=== PATIENT | female | born 1940 | race Caucasian/White ===

== ENCOUNTER 2017-07-26 09:00 | Inpatient (IN) | payer MEDICARE ==
--- NOTE | 2017-07-19 11:20 | HP ---
AMENDED REPORT NOW INCLUDES COSIGNER DESIGNATION - ESIGNED BEFORE ADJUSTMENT HISTORY AND PHYSICAL: DATE OF ADMISSION/SURGERY: 07/26/17 DATE OF OFFICE VISIT: 07/13/17 SURGEON: Sury Wyman MD * (DICTATED BY SUDHA OLMEDO) PROCEDURE: Left total knee arthroplasty. CHIEF COMPLAINT: Left knee pain. HISTORY OF PRESENT ILLNESS: Ms. Stephen Cisneros is a 76-year-old female with complaints of left knee pain secondary to end-stage osteoarthritis. She has failed conservative management and elected to proceed with a left total knee arthroplasty, which is scheduled for 07/26/[address] Wyman. PAST MEDICAL HISTORY: Hypertension, high cholesterol, hypothyroidism, asthma, depression, anxiety, and history of breast cancer. PAST SURGICAL HISTORY: Appendectomy, mastectomy, hematoma removal, tonsillectomy, cataract removal, and a lymph node removal. CURRENT MEDICATIONS: 1. Carvedilol 12.5 mg twice a day. 2. Furosemide 20 mg daily. 3. Losartan potassium 25 mg daily. 4. Aspirin 81 mg daily. 5. Wellbutrin 300 mg daily. 6. Acidophilus. 7. Levoxyl 100 mcg daily. 8. Calcium, magnesium, zinc 1 pill daily. 9. Multivitamin daily. 10. Vitamin C 500 mg a day. 11. Vitamin D3 1000 units a day. 12. Fish oil daily. 13. Chromium picolinate 800 mcg daily. 14. L-carnitine 400 mg daily. 15. Arimidex 1 mg daily. 16. Breo Ellipta inhaler. 17. Alpha lipoic acid 100 mg once a day. 18. Hair, Skin and Nails 2 tabs daily. 19. Glucosamine. 20. Benadryl as needed. 21. QVAR inhaler 2 puffs twice a day. 22. Advair Diskus twice daily. 23. CBD supplement. ALLERGIES: LATEX and SCALLOPS. FAMILY HISTORY: Heart disease, diabetes, cancer, rheumatoid arthritis, stroke, and emphysema. SOCIAL HISTORY: She is a 76-year-old female. She lives alone. She does not smoke. She takes an oral supplement containing cannabis and she denies use of alcohol. REVIEW OF SYSTEMS: A complete 14-point review of systems was reviewed with the patient. It was positive for asthma, occasional shortness of breath, and hypothyroidism. She denies history of DVT, PE, hepatitis C, HIV, or anesthesia problems. PHYSICAL EXAMINATION GENERAL: She is well developed, well nourished, in no acute distress. VITAL SIGNS: She stands 5 feet 3 inches tall, weighs 190 pounds. Her blood pressure is 132/80 and her heart rate 68. HEENT: Normocephalic, atraumatic. NECK: Supple. No palpable lymph nodes. PULMONARY: The lungs are clear to auscultation bilaterally. CARDIO: Regular rate and rhythm. Strong S1, S2. ABDOMEN: Soft, nontender, nondistended. NEUROLOGICAL: She is alert and oriented x3. Cranial nerves II through XII are intact. MUSCULOSKELETAL: Left lower extremity, the skin is intact. There are no open wounds or abrasions. There is a moderate joint effusion. She has some tenderness over the medial and lateral joint line. Range of motion 0 to 120 degrees with patellofemoral crepitus. There is an 18-degree valgus deformity of the knee with significant MCL laxity. 5/5 lower extremity strength, 2+ dorsalis pedis pulses, and intact sensation. ASSESSMENT AND PLAN: Ms. Stephen Cisneros is a 76-year-old female with chronic left knee pain secondary to severe end-stage osteoarthritis. She has failed conservative management and elected to proceed with a left total knee arthroplasty, which is scheduled for 07/26/[address] Wyman discussed the risks and benefits of the surgery at today's visit and all of her questions were answered. She will follow up with Dr. Wyman 2 weeks after the surgery. SUDHA OLMEDO [id number]/[facility] #: [id number] [place]
[~2017-07-26 09:00] MED LIST: Buffered Lidocaine 0.9% SYRIN* 5 ML/SYR SYRINGE INTRADERM ONE; Dexamethasone IV* 4 MG/ML 1 ML (4 MG) IV SLOW PU ONE; Famotidine TAB* 20 MG PO ONE
--- OUTSIDE RECORDS SUMMARY | 2017-07-26 09:30 | XMS REPORT ---
:1940 External Reference #:[id number] Author Organization [facility] Address [address] [address] Phone [phone] Care Team Providers Name Role Phone Jonathan Henson III, MD Primary Care Physician Unavailable Payers Type Date Identification Payment Subscriber Numbers Provider Health Maintenance Effective: Policy Number: Medicare Carlos Mitchell [facility] ([facility]) 04/02/2012 [id number] [facility] [place] Group Number: [id number] [address] [address] PayID: [id number] VictorVANESSA taylor [id number] Medigap Part B Expires: [facility] 04/01/2011 [id number] [facility] [place] PayID: [id number] [address] [place] [address] Medigap Part B Effective: 10/01/2007 Policy Number: Medicare Debbie Mitchell [id number] [place] Expires: 04/01/2011 PayID: [id number] [address] [place] [address] Problems Date Description Provider Status Onset: 05/16/2011 Benign essential hypertension Jonathan Henson M.D. Active Onset: 05/16/2011 Hypothyroidism Jonathan Henson M.D. Active Onset: 05/16/2011 Pure hypercholesterolemia Jonathan Henson M.D. Active Onset: 05/16/2011 Asthma without status asthmaticus Jonathan Henson M.D. Active Onset: 05/16/2011 Impaired fasting glycaemia Jonathan Henson M.D. Active Onset: 05/16/2011 Depressive disorder Jonathan Henson M.D. Active Onset: 06/02/2011 Acute bronchitis Jonathan Henson M.D. Active Onset: 11/24/2014 Pes anserinus tendinitis and bursitis Cody Dorman M.D. Active Onset: 01/14/2015 Essential hypertension Jonathan Henson M.D. Active Onset: 02/16/2016 Localized, primary osteoarthritis Cody Dorman M.D. Active Onset: 02/16/2016 Disorder of shoulder Cody Dorman M.D. Active Onset: 06/18/2017 Acquired genu valgum Sury Wyman M.D. Active Family History Date Family Member(s) Problem(s) Comments General Heart Disease General Diabetes General Cancer Father due to age 69 [place] () Mother Rheumatoid Arthritis Mother due to age 72 ? 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 Purchased capsule recently and plans to take. Smoking Patient is a former smoker Smoked 1/2 ppd for 20 years Daily Caffeine Consumes on average 1 cup Mug of regular coffee per day Exercise Type/Frequency Exercises rarely joined [employer], but not going regularly. Walks Allergies, Adverse Reactions, Alerts Date Description Reaction Status Severity Comments 03/14/2017 Latex active 03/14/2017 Scallops active 03/14/2017 NKDA inactive Medications Medication Date Status Form Strength Qnty SIG Indications Ordering Provider Bactrim DS 07/16 Active Tablets 800-160mg 6tabs take 1 by Sury mouth Garo, twice a M.D. day for 3 days Carvedilol 03/28 Active Tablets 12.5mg 180ta 1 by I42.9 Dustin Amadou bs mouth Dustin, DO twice a FACC day Furosemide 03/23 Active Tablets 20mg 45tab take one Dustin S. s tablet by Chan, DO mouth FACC every other day Losartan 03/23 Active Tablets 25mg 90tab 1 by Dustin Shrestha Potassium s mouth Chan, DO every day FACC Aspirin 03/[address] 81mg 90tab 1 by Dustin Shrestha s mouth Chan, DO every day FACC Prosthetic Bra 12/04 Active Misc Jonathan Rondon. Dave Henson Bupropion HCL ER 04/24 Active Tablets ER 300mg 90tab Take 1 Jonathan Mckeon (XL) 24HR s Tablet Natividad, Daily Dave Acidophilus 05/11 Active Capsules 1 po qd Jonathan Rondon. Dave Henson Levoxyl 05/11 Active Tablets 100mcg 90tab take 1 . s tablet Natividad, daily M.DAmadou Calcium/Magnesium Active Tablets 1 PO qd Other /Zinc /0000 Physician Practices Multi-Vitamin Active Tablets 100ta 1 PO qd Barken, / bs MD Huber Vit C Active Tablets 500mg. 1 PO qd Unknown /0000 Vitamin D-3 Active Tablets 1000Units 1 po qd Unknown /0000 Fish Oil Active Capsules 1 po qd Unknown /0000 Chromium Active Tablets 800mcg 1 by Unknown Picolinate Ultra /0000 mouth daily L-Carnitine Active Capsules 400mg 1 by Unknown /0000 mouth daily Arimidex Active Tablets 1mg 30tab 1 by Unknown /0000 s mouth every day Breo Ellipta Active Aerosol 200-25mcg one Unknown /0000 /Inh inhalatio n daily ( On hold till finished with Advair per patient) Alpha-Lipoic Acid Active Capsules 100mg 1 by Unknown /0000 mouth once per day Hair Skin And Active Tablets 2 tabs Unknown Nails Formula /0000 per day Glucosamine Active Capsules 400mg+500 once per Unknown /0000 mg day Benadryl Allergy Active Tablets 25mg 1-2 tabs Unknown /0000 twice a day prn Concentrated CBD Active 25mg 2 cap po Unknown /0000 daily ( Has Not Start Yet) CBD Active Oil 30 drops Unknown /0000 daily ( started using 2 weeks ago ) Spiriva Respimat Active Aerosol 2.5mcg/Ac 2 puffs Unknown /0000 t every day Carvedilol 03/14 Hx Tablets 6.25mg 60tab Take 1 by I42.9 Dustin SAmadou /2016 s mouth Chan, DO - twice a FACC /2016 Tessalon Perles 02/15 Hx Capsules 100mg 30cap 1-2 by Jonathan Mckeon /2014 s mouth Natividad, - three M.D. 02/19 times day as needed as needed cough. Advair Diskus 05/25 Hx Aerosol 500-50mcg 1unit 1 puff Jonathan Mckeon /2014 /Dose s twice a Natividad, - day M.D. 02/19 Bupropion HCL ER 07/09 Hx Tablets ER 150mg 180ta 2 by Jonathan Mckeon (XL) /2013 24HR bs mouth Natividad, - every day M.D. 04/24 Proair HFA 12/18 Hx Aerosol 108(90Bas 1unit 2 puffs Jonathan Mckeon e) s po qiraine Henson, - mcg/Act prn M.D. 05/13 Zithromax Z-Elver 06/01 Hx Tablets 250mg 1Pack as per Jonathan Mckeon /2011 michael Henson - s M.D. 11/13 Proair HFA 06/01 Hx Aerosol 108(90Bas 1unit 2 puffs Jonathan Mckeon e) mcg/ac s po qid Natividad, - prn M.D. 12/18 Tessalkenneth Blanco 06/01 Hx Capsules 100mg 30cap 1-2 po Jonathan Mckeon /2011 s tid prn Natividad, - M.D. 11/13 Ambien 11/08 Hx Tablets 10mg 30tab 1 po qhs Jonathan Mckeon /2009 s prn sleep Natividad, - insomnia M.D. 12/18 Bupropion HCL 05/05 Hx Tablets ER 150mg 180ta 2 by Jonathan Mckeon /2009 12HR bs yakov Henson, - every day M.D. 07/09 Citalopram 07/06 Hx Tablets 40mg 90tab 1 po qd Jonathan Mckeon Hydrobromide /2008 benson Henson Glen Acosta 05/11 Albuterol Inhaler 07/06 Hx 1unit 2 puffs Jonathan Mckeon s up to Glen Bui M.D. 02/08 Citalopram 08/14 Hx Tablets 20mg 90tab 1 po qd Jonathan Mckeon Hydrobromide /2007 Glen Johnson M.D. 07/06 Levoxyl 06/05 Hx Tablets 100mcg 90tab 1 po qd Unruly /2007 Glen Jernigan M.D.,FACP 05/11 Hydrochlorothiazi 06/02 Hx Capsules 12.5mg 90cap take 1 Jonathan Mckeon de /2007 Glen Hair M.D. 03/23 Lisinopril/Hydroc 11/28 Hx Tablets 10-12.5 90tab 1 po qd Unknown hlorothiazide /2006 s - 06/02 Lexapro 11/28 Hx Tablets 20mg 90tab 1 PO qd Jonathan Mckeon /2006 Glen Johnson M.D. 08/14 Quercetine Plus 11/28 Hx 500mg. 1 PO qd Jonathan Mckeon /2006 Glen Henson M.D. 05/05 Advair Diskus Hx Misc 500/50 1unit 1 puff Natividad s bid III, Glen Mckeon, 05/25 Co Enzyme Q-10 Hx Capsules 50mg 1 PO qd Other / Physician - Practices 05/11 Diovan HCT Hx Tablets 80/12.5 90tab 1 PO qd Eddie, benson Ngo MD - 11/28 Vitamin E Hx Capsules 400Unit 1 PO qd Other / Physician - Practices 05/11 Alpha-Lipoic Acid Hx 100mg. 1 PO qd Other / Physician - Practices 05/11 Chromium Hx Tablets 200mg. 1 PO qd Other Picolinate / Physician - Practices 05/11 Zyrtec Hx Tablets 10mg 90tab 1 po qd Jonathan EAmadou / s Glen Milan M.D. 07/06 Patanol Hx Solution 0.1% 1unit 1 gtt Jonathan E. /0000 s Both Eyes Natividad, - qd prn M.DAmadou 05/05 Levoxyl 0000 Hx Tablets 125mcg 90tab 1 PO qd Jonathan E. /0000 s Glen Henson M.D. 06/05 Ambien CR Hx Tablets ER 12.5mg 30tab 1 tablet Jonathan E. /0000 s po q hs Natividad - prn M.D. 11/08 Grapeseed Extract Hx 1 PO qd Other /0000 Physician - Practices 05/05 Acetyle L Hx 1 PO qd Other Carnitine / Physician - Practices 05/11 L-Glutamine Hx Capsules 500mg 1 PO qd Other / Physician - Practices 05/11 Trazodone HCL Hx Tablets 50mg 30tab 1 tablet Unknown / s at - bedtime 07/02 as needed /2013 Selenium Hx Tablets 200mcg 1 po qd Unknown / - 05/28 Ambien Hx Tablets 10mg 30tab 1 by G47.00 Ovi / s mouth Chika [employer] - every 05/13 night at /2018 bedtime as needed sleep insomnia Turmeric Hx Capsules 500mg 2 by Unknown /0000 mouth - every day 07/25 Spiriva Hx Capsules 18mcg 1 Unknown Handihaler /0000 inhalatio - n by 04/03 every morning Levocetirizine Hx Tablets 5mg 1 by Unknown Dihydrochloride /0000 mouth - every day 03/06 Triamcinolone Hx Cream 0.1% apply Unknown Acetonide / thin film - twice 05/13 Triple Paste AF Hx Ointment 2% Unknown / - 02/19 Triamcinolone Hx Ointment 0.1% Unknown Acetonide /0000 - 02/19 Zolpidem Tartrate Hx Tablets 5mg Unknown / - 02/19 Travatan Z Hx Solution 0.004% 1 drop Unknown / each eye - once 02/19 Ketoconazole Hx Cream 2% apply Unknown /0000 twice a - day 04/02 Prednisolone 00 Hx Suspension 1% 4 drops [place], Acetate / per day Glen Teixeira MD 05/13 Moxifloxacin HCL Hx Solution 0.5% [place], / Glen Teixeira MD 04/03 Melatonin 00 Hx 12mg 1 tab at Unknown /0000 night - 05/13 Qvar Hx Aerosol 80mcg/Act 2 puff Unknown /0000 twice a - day 07/23 Advair Diskus Hx Aerosol 500-50mcg inhale Unknown /0000 /Dose one dose - by mouth 07/23 daily Medications Administered in Office Medication Date Status Form Strength Qnty SIG Indications Ordering Provider Technetium TC Administered Injection Dustin SAmadou 99M 017 DO Dustin Tetrofosmin, FACC Per Unit Dose Up To 40 Millicuries Influenza Administered Injection Unknown Virus Vaccine 013 Immunizations CPT Code Status Date Vaccine Lot # [id number] Given 05/29/2016 Hepatitis A Vaccine Adult Dosage [id number] Given 05/12/2016 Zoster (Zostavax) 67200 Given 01/21/2016 Fluzone High Dose 64555 Given 01/13/2015 Fluzone High Dose 98975 Given 07/23/2014 Pneumococcal Conjugate Vaccine 13 Valent For [id number] Intramuscular Use 81329 Given 01/22/2014 Flu Vaccine Split Virus Preservative Free For [id number] Indiv 3Yr Older 40636 Given 05/05/2009 Pneumonia Vaccine [id number] 96619 Given 05/05/2009 Influenza Virus 3Yrs & Over [id number] 80586 Given 07/06/2008 Tetanus And Diptheria (Td) For Adult Use [id number] Preservative Free 09184 Given 01/02/2008 Influenza Virus 3Yrs & Over 43807 Given 02/05/2007 Influenza Virus 3Yrs & Over 54326 Given 02/05/2007 Influenza Virus 3Yrs & Over 40781 Given 06/03/2001 Pneumovax (History By Patient) 60485 Given 09/09/1997 Td (History By Patient) Vital Signs Date Vital Result Comment 07/13/2017 Height 63.25 inches 5'3.25" Weight 190.00 lb Heart Rate 68 /min BP Systolic 132 mmHg BP Diastolic 80 mmHg Respiratory Rate 16 /min Body Temperature 98.0 F Pain Level 4 BMI (Body Mass Index) 33.4 kg/m2 06/27/2017 Height 63.25 inches 5'3.25" Weight 194.00 lb without shoes Heart Rate 60 /min BP Systolic Sitting 130 mmHg Rue reg cuff BP Diastolic Sitting 64 mmHg Rue reg cuff BP Systolic Standing 124 mmHg Rue reg cuff BP Diastolic Standing 60 mmHg Rue reg cuff Respiratory Rate 16 /min BMI (Body Mass Index) 34.1 kg/m2 Ejection Fraction 40-45% date 03/23/17 ECHO 06/18/2017 Height 65 inches 5'5" Weight 200.00 lb Heart Rate 79 /min BP Systolic Sitting 128 mmHg LA lg cuff BP Diastolic Sitting 76 mmHg LA lg cuff Pain Level 4 BMI (Body Mass Index) 33.3 kg/m2 05/31/2017 Height 65 inches 5'5" Weight 198.00 lb Heart Rate 72 /min BP Systolic Sitting 112 mmHg BP Diastolic Sitting 62 mmHg Respiratory Rate 14 /min O2 % BldC Oximetry 97 % BMI (Body Mass Index) 32.9 kg/m2 05/14/2017 Height 65 inches 5'5" Weight 193.00 lb Heart Rate 72 /min BP Systolic Sitting 114 mmHg BP Diastolic Sitting 70 mmHg Respiratory Rate 14 /min O2 % BldC Oximetry 95 % BMI (Body Mass Index) 32.1 kg/m2 Neck Circumference in inches 14.5 04/25/2017 Height 65 inches 5'5" Weight 193.00 lb Heart Rate 74 /min BP Systolic Sitting 122 mmHg Rue large cuff BP Diastolic Sitting 82 mmHg Rue large cuff BP Systolic Standing 118 mmHg Rue BP Diastolic Standing 80 mmHg Rue Respiratory Rate 16 /min BMI (Body Mass Index) 32.1 kg/m2 Ejection Fraction 40-45% 03/23/17 03/28/2017 Height 65 inches 5'5" Weight 192.00 lb Heart Rate 72 /min BP Systolic Sitting 118 mmHg Rue large cuff BP Diastolic Sitting 70 mmHg Rue large cuff BP Systolic Standing 110 mmHg BP Diastolic Standing 74 mmHg Respiratory Rate 18 /min BMI (Body Mass Index) 31.9 kg/m2 Ejection Fraction 40-45% 03/23/17 03/14/2017 Height 65 inches 5'5" Weight 191.00 lb Heart Rate 68 /min BP Systolic 118 mmHg Rue large cuff BP Diastolic 78 mmHg Rue large cuff BP Systolic Sitting 126 mmHg Lue large cuff BP Diastolic Sitting 80 mmHg Lue large cuff BP Systolic Standing 126 mmHg Lue BP Diastolic Standing 80 mmHg Lue Respiratory Rate 16 /min BMI (Body Mass Index) 31.8 kg/m2 Ejection Fraction 50-55% 12/23/12 02/20/2017 Height 65 inches 5'5" Weight 190.00 lb Heart Rate 75 /min BP Systolic Sitting 132 mmHg BP Diastolic Sitting 82 mmHg Body Temperature 96.7 F O2 % BldC Oximetry 93 % BMI (Body Mass Index) 31.6 kg/m2 08/14/2016 Height 65 inches 5'5" Weight 187.00 lb Heart Rate 84 /min BP Systolic Sitting 124 mmHg BP Diastolic Sitting 82 mmHg Respiratory Rate 15 /min O2 % BldC Oximetry 98 % BMI (Body Mass Index) 31.1 kg/m2 02/16/2016 Height 65 inches 5'5" Weight 185.00 lb per patient BP Systolic Sitting 138 mmHg BP Diastolic Sitting 88 mmHg Pain Level 5 5/10 left knee, 8-9/10 right shoulder BMI (Body Mass Index) 30.8 kg/m2 02/07/2016 Height 63.5 inches 5'3.50" Weight 192.12 lb Heart Rate 81 /min BP Systolic 130 mmHg BP Diastolic 80 mmHg Body Temperature 96.6 F O2 % BldC Oximetry 85 % BMI (Body Mass Index) 33.5 kg/m2 07/26/2015 Height 63.5 inches 5'3.50" Weight 186.00 lb Heart Rate 70 /min BP Systolic Sitting 135 mmHg BP Diastolic Sitting 78 mmHg Body Temperature 96.0 F BMI (Body Mass Index) 32.4 kg/m2 02/08/2015 Height 65 inches 5'5" Weight 187.00 lb Heart Rate 86 /min BP Systolic 110 mmHg BP Diastolic 75 mmHg Body Temperature 97.4 F O2 % BldC Oximetry 98 % BMI (Body Mass Index) 31.1 kg/m2 01/14/2015 Weight 195.00 lb Heart Rate 95 /min BP Systolic Sitting 141 mmHg BP Diastolic Sitting 83 mmHg Body Temperature 96.3 F 11/24/2014 Height 65 inches 5'5" Weight 188.00 lb Heart Rate 97 /min BP Systolic 129 mmHg BP Diastolic 77 mmHg BMI (Body Mass Index) 31.3 kg/m2 07/23/2014 Weight 199.00 lb Heart Rate 75 /min BP Systolic Sitting 128 mmHg BP Diastolic Sitting 80 mmHg Body Temperature 97.9 F O2 % BldC Oximetry 97 % 06/18/2014 Weight 200.50 lb Heart Rate 78 /min BP Systolic Sitting 132 mmHg BP Diastolic Sitting 76 mmHg Body Temperature 97.8 F 05/28/2014 Height 64 inches 5'4" Weight 197.00 lb Heart Rate 73 /min BP Systolic 139 mmHg BP Diastolic 76 mmHg BMI (Body Mass Index) 33.8 kg/m2 03/12/2014 Weight 192.50 lb Heart Rate 80 /min BP Systolic Sitting 144 mmHg BP Diastolic Sitting 77 mmHg Body Temperature 96.5 F O2 % BldC Oximetry 96 % 01/01/2014 Height 64 inches 5'4" Weight 187.00 lb Heart Rate 82 /min BP Systolic Sitting 129 mmHg BP Diastolic Sitting 81 mmHg Body Temperature 96.7 F O2 % BldC Oximetry 95 % BMI (Body Mass Index) 32.1 kg/m2 07/02/2013 Height 64 inches 5'4" Weight 172.75 lb Heart Rate 92 /min BP Systolic Sitting 126 mmHg BP Diastolic Sitting 68 mmHg Body Temperature 97.7 F BMI (Body Mass Index) 29.6 kg/m2 04/22/2013 Weight 172.00 lb Heart Rate 88 /min BP Systolic Sitting 136 mmHg BP Diastolic Sitting 80 mmHg O2 % BldC Oximetry 95 % 12/18/2012 Weight 196.25 lb Heart Rate 78 /min BP Systolic Sitting 128 mmHg BP Diastolic Sitting 80 mmHg 05/21/2012 Height 64 inches 5'4" Weight 189.75 lb Heart Rate 100 /min BP Systolic Sitting 136 mmHg BP Diastolic Sitting 80 mmHg BMI (Body Mass Index) 32.6 kg/m2 11/14/2011 Height 64.25 inches 5'4.25" Weight 188.00 lb Heart Rate 92 /min BP Systolic Sitting 136 mmHg BP Diastolic Sitting 74 mmHg BMI (Body Mass Index) 32.0 kg/m2 06/02/2011 Height 63.75 inches 5'3.75" Weight 194.00 lb Heart Rate 76 /min BP Systolic Sitting 130 mmHg BP Diastolic Sitting 88 mmHg Body Temperature 98.5 F O2 % BldC Oximetry 96 % BMI (Body Mass Index) 33.6 kg/m2 05/16/2011 Height 64 inches 5'4" Weight 202.75 lb Heart Rate 88 /min BP Systolic Sitting 142 mmHg BP Diastolic Sitting 78 mmHg BMI (Body Mass Index) 34.8 kg/m2 05/11/2010 Weight 200.00 lb Heart Rate 80 /min BP Systolic Sitting 136 mmHg BP Diastolic Sitting 82 mmHg O2 % BldC Oximetry 94 % 11/08/2009 Weight 207.00 lb Heart Rate 60 /min BP Systolic Sitting 130 mmHg BP Diastolic Sitting 70 mmHg 05/05/2009 Height 64 inches 5'4" Weight 198.00 lb Heart Rate 88 /min BP Systolic Sitting 138 mmHg BP Diastolic Sitting 84 mmHg BMI (Body Mass Index) 34.0 kg/m2 07/06/2008 Height 64 inches 5'4" Weight 204.00 lb Heart Rate 68 /min BP Systolic Sitting 138 mmHg BP Diastolic Sitting 84 mmHg BMI (Body Mass Index) 35.0 kg/m2 07/24/2007 Height 64.25 inches 5'4.25" Heart Rate 76 /min BP Systolic Sitting 132 mmHg BP Diastolic Sitting 78 mmHg 07/08/2007 Height 64.25 inches 5'4.25" Heart Rate 76 /min BP Systolic Sitting 114 mmHg BP Diastolic Sitting 70 mmHg 06/03/2007 Height 64.25 inches 5'4.25" Weight 200.00 lb Heart Rate 84 /min BP Systolic Sitting 126 mmHg BP Diastolic Sitting 72 mmHg BMI (Body Mass Index) 34.1 kg/m2 11/28/2006 Height 64.25 inches 5'4.25" Weight 191.00 lb Heart Rate 76 /min BP Systolic Sitting 130 mmHg BP Diastolic Sitting 84 mmHg BMI (Body Mass Index) 32.5 kg/m2 Results Test Date Test Result H/L Range Note Urine Culture And 07/13/2017 Urine Culture SEE RESULT BELOW 1 Sensitivities Type & Screen 07/13/2017 Patient Blood A Positive Type Antibody Screen NEGATIVE Inr/Protime 07/13/2017 Inr 0.84 0.77-1.02 Laboratory test finding 07/13/2017 Partial Thrombo Time 28.4 seconds 26.0 -36.3 PTT Comp Metabolic Panel 07/13/2017 Sodium 139 mmol/L 139-145 Potassium 4.4 mmol/L 3.5-5.0 Chloride 104 mmol/L 101-111 Co2 Carbon Dioxide 28 mmol/L 22-32 Anion Gap 7 mmol/L 2-11 Glucose 79 mg/dL 70-100 Blood Urea Nitrogen 21 mg/dL 6-24 Creatinine 0.85 mg/dL 0.51-0.95 BUN/Creatinine Ratio 24.7 High 8-20 Calcium 9.3 mg/dL 8.6-10.3 Total Protein 6.8 g/dL 6.4-8.9 Albumin 4.3 g/dL 3.2-5.2 Globulin 2.5 g/dL 2-4 Albumin/Globulin Ratio 1.7 1-3 Total Bilirubin 0.60 mg/dL 0.2-1.0 Alkaline Phosphatase 70 U/L 34-104 Alt 20 U/L 7-52 Ast 21 U/L 13-39 Egfr Non- 65.0 >60 Egfr 83.6 >60 2 CBC Auto Diff 07/13/2017 White Blood Count 7.9 10^3/uL 3.5-10.8 Red Blood Count 4.37 10^6/uL 4.0-5.4 Hemoglobin 13.2 g/dL 12.0-16.0 Hematocrit 39 % 35-47 Mean Corpuscular Volume 89 fL 80-97 Mean Corpuscular Hemoglobin 30 pg 27-31 Mean Corpuscular HGB Conc 34 g/dL 31-36 Red Cell Distribution Width 14 % 10.5-15 Platelet Count 232 10^3/uL 150-450 Mean Platelet Volume 9.2 um3 7.4-10.4 Abs Neutrophils 4.2 10^3/uL 1.5-7.7 Abs Lymphocytes 2.7 10^3/uL 1.0-4.8 Abs Monocytes 0.8 10^3/uL 0-0.8 Abs Eosinophils 0.2 10^3/uL 0-0.6 Abs Basophils 0.1 10^3/uL 0-0.2 Abs Nucleated RBC 0 10^3/uL Granulocyte % 53.5 % 38-83 Lymphocyte % 33.8 % 25-47 Monocyte % 9.7 % High 0-7 Eosinophil % 2.2 % 0-6 Basophil % 0.8 % 0-2 Nucleated Red Blood Cells % 0 Urinalysis Profile 07/13/2017 Urine Appearance Cloudy Urine Specific [place] 1.017 1.010-1.030 Urine pH 5.0 5-9 Urine Urobilinogen Negative Negative Urine Ketones Negative Negative Urine Protein Negative Negative Urine Leukocytes Negative Negative Urine Blood Negative Negative * * Negative 3 Urine Nitrite Negative Negative Urine Bilirubin Negative Negative Urine Glucose Negative Negative Urine Color Yellow Basic Metabolic Panel 04/04/2017 Sodium 140 mmol/L 133-145 Potassium 4.8 mmol/L 3.5-5.0 Chloride 104 mmol/L 101-111 Co2 Carbon Dioxide 30 mmol/L 22-32 Anion Gap 6 mmol/L 2-11 Glucose 99 mg/dL 70-100 Blood Urea Nitrogen 17 mg/dL 6-24 Creatinine 1.04 mg/dL High 0.51-0.95 BUN/Creatinine Ratio 16.3 8-20 Calcium 9.2 mg/dL 8.6-10.3 Egfr Non- 51.5 >60 Egfr 66.3 >60 4 Laboratory test finding 04/04/2017 Hemoglobin A1c (Glyco 5.9 % High 4.0- 5.6 5 HGB) Basic Metabolic Panel 03/19/2017 Sodium 138 mmol/L 133-145 Potassium 4.1 mmol/L 3.5-5.0 Chloride 105 mmol/L 101-111 Co2 Carbon Dioxide 26 mmol/L 22-32 Anion Gap 7 mmol/L 2-11 Glucose 117 mg/dL High 70-100 Blood Urea Nitrogen 22 mg/dL 6-24 Creatinine 1.00 mg/dL High 0.51-0.95 BUN/Creatinine Ratio 22.0 High 8-20 Calcium 9.1 mg/dL 8.6-10.3 Egfr Non- 53.9 >60 Egfr 69.3 >60 6 Laboratory test finding 03/16/2017 B-Type Natriuretic Peptide 365 pg/mL High 7 BNP Lipid Profile 08/11/2016 Triglycerides 156 mg/dL 8 (Trig/Chol/HDL) Cholesterol 172 mg/dL 9 HDL Cholesterol 54.0 mg/dL 10 LDL Cholesterol 87 mg/dL 11 Laboratory test finding 08/11/2016 TSH (Thyroid Stim Horm) 0.90 mcIU/mL 0.34-5.60 Comp Metabolic Panel 05/04/2016 Sodium 138 mmol/L 133-145 Potassium 3.9 mmol/L 3.5-5.0 Chloride 103 mmol/L 101-111 Co2 Carbon Dioxide 28 mmol/L 22-32 Anion Gap 7 mmol/L 2-11 Glucose 76 mg/dL 70-100 Blood Urea Nitrogen 19 mg/dL 6-24 Creatinine 0.87 mg/dL 0.51-0.95 BUN/Creatinine Ratio 21.8 High 8-20 Calcium 9.6 mg/dL 8.6-10.3 Total Protein 6.7 g/dL 6.4-8.9 Albumin 4.1 g/dL 3.2-5.2 Globulin 2.6 g/dL 2-4 Albumin/Globulin Ratio 1.6 1-3 Total Bilirubin 0.50 mg/dL 0.2-1.0 Alkaline Phosphatase 76 U/L 34-104 Alt 18 U/L 7-52 Ast 19 U/L 13-39 Egfr Non- 63.5 >60 Egfr 81.6 >60 12 CBC Auto Diff 05/04/2016 White Blood Count 7.3 10^3/uL 3.5-10.8 Red Blood Count 4.57 10^6/uL 4.0-5.4 Hemoglobin 13.4 g/dL 12.0-16.0 Hematocrit 40 % 35-47 Mean Corpuscular Volume 88 fL 80-97 Mean Corpuscular Hemoglobin 29 pg 27-31 Mean Corpuscular HGB Conc 33 g/dL 31-36 Red Cell Distribution Width 14 % 10.5-15 Platelet Count 222 10^3/uL 150-450 Mean Platelet Volume 9 um3 7.4-10.4 Abs Neutrophils 4.0 10^3/uL 1.5-7.7 Abs Lymphocytes 2.2 10^3/uL 1.0-4.8 Abs Monocytes 0.8 10^3/uL 0-0.8 Abs Eosinophils 0.3 10^3/uL 0-0.6 Abs Basophils 0.1 10^3/uL 0-0.2 Abs Nucleated RBC 0 10^3/uL Granulocyte % 54.3 % 38-83 Lymphocyte % 29.9 % 25-47 Monocyte % 11.0 % High 1-9 Eosinophil % 4.0 % 0-6 Basophil % 0.8 % 0-2 Nucleated Red Blood Cells % 0 Laboratory test finding 05/04/2016 CA 27-29 19.75 U/mL 3.5-38.6 13 Basic Metabolic Panel 02/03/2016 Sodium 138 mmol/L 133-145 Potassium 4.0 mmol/L 3.5-5.0 Chloride 103 mmol/L 101-111 Co2 Carbon Dioxide 28 mmol/L 22-32 Anion Gap 7 mmol/L 2-11 Glucose 96 mg/dL 70-100 Blood Urea Nitrogen 16 mg/dL 6-24 Calcium 9.6 mg/dL 8.6-10.3 Creatinine 0.93 mg/dL 0.51-0.95 BUN/Creatinine Ratio 17.2 8-20 Egfr Non- 58.8 >60 Egfr 75.6 >60 14 Laboratory test finding 07/22/2015 TSH (Thyroid Stim Horm) 1.01 ?IU/mL 0.34-5.60 Lipid Profile 07/22/2015 Triglycerides 193 mg/dL 15 (Trig/Chol/HDL) Cholesterol 166 mg/dL 16 HDL Cholesterol 53.8 mg/dL 17 LDL Cholesterol 74 mg/dL 18 Basic Metabolic Panel 01/14/2015 Sodium 138 mmol/L 133-145 Potassium 4.1 mmol/L 3.5-5.0 Chloride 104 mmol/L 101-111 Co2 Carbon Dioxide 27 mmol/L 22-32 Anion Gap 7 mmol/L 2-11 Glucose 77 mg/dL 70-100 Blood Urea Nitrogen 14 mg/dL 6-24 Creatinine 0.95 mg/dL 0.51-0.95 BUN/Creatinine Ratio 14.7 8-20 Calcium 9.4 mg/dL 8.6-10.3 Egfr Non- 57.5 >60 Egfr 74.0 >60 19 Lipid Profile (Trig/Chol/HDL) 07/01/2014 Triglycerides 157 mg/dL 20 Cholesterol 161 mg/dL 21 HDL Cholesterol 52.7 mg/dL 22 LDL Cholesterol 77 mg/dL 23 Laboratory test finding 07/01/2014 TSH (Thyroid Stimulating 2.16 IU/mL 0.34-5.60 Horm) Comp Metabolic Panel 12/29/2013 Sodium 137 mmol/L 133-145 Potassium 4.1 mmol/L 3.7-5.6 Chloride 102 mmol/L 101-111 Co2 Carbon Dioxide 29 mmol/L 22-32 Anion Gap 6 mmol/L 2-11 Glucose 106 mg/dL High 70-100 Blood Urea Nitrogen 18 mg/dL 6-24 Creatinine 0.91 mg/dL 0.51-0.95 BUN/Creatinine Ratio 19.8 8-20 Calcium 9.4 mg/dL 8.6-10.3 Total Protein 6.4 g/dL 6.4-8.9 Albumin 4.1 g/dL 3.2-5.2 Globulin 2.3 g/dL 2-4 Albumin/Globulin Ratio 1.8 1-3 Total Bilirubin 0.60 mg/dL 0.2-1.0 Alkaline Phosphatase 86 U/L 34-104 Alt 20 U/L 7-52 Ast 21 U/L 13-39 Egfr Non- 60.6 >60 Egfr 77.9 >60 24 Laboratory test finding 12/29/2013 TSH (Thyroid Stimulating 0.18 IU/mL Low 0.34-5.60 Horm) Free T4 1.17 ng/mL High 0.61-1.12 Hemoglobin A1c 5.6 % Less than 6.0 25 CBC No Diff 12/29/2013 White Blood Count 6.1 10^3/uL 4.8-10.8 Red Blood Count 4.46 10^6/uL 4.0-5.4 Hemoglobin 13.3 g/dL 12.0-16.0 Hematocrit 39 % 35-47 Mean Corpuscular Volume 88 fL 80-97 Mean Corpuscular Hemoglobin 30 pg 27-31 Mean Corpuscular HGB Conc 34 g/dL 31-36 Red Cell Distribution Width 14 % 10.5-15 Platelet Count 242 10^3/uL 150-450 Mean Platelet Volume 8 um3 7.4-10.4 Laboratory test finding 12/29/2013 CA 27-29 21.02 U/mL 3.5-38.6 26 Lipid Profile (Trig/Chol/HDL) 06/26/2013 Triglycerides 147 mg/dL 27, 28 Cholesterol 164 mg/dL 27, 29 HDL Cholesterol 45.8 mg/dL 27, 30 LDL Cholesterol 89 mg/dL 27, 31 CBC Auto Diff 02/24/2013 White Blood Count 20.2 10^3/uL High 4.8-10.8 Red Blood Count 3.50 10^6/uL Low 4.0-5.4 Hemoglobin 10.7 g/dL Low 12.0-16.0 Hematocrit 32 % Low 35-47 Mean Corpuscular Volume 93 fL 80-97 Mean Corpuscular Hemoglobin 31 pg 27-31 Mean Corpuscular HGB Conc 33 g/dL 31-36 Red Cell Distribution Width 19 % High 10.5-15 Platelet Count 223 10^3/uL 150-450 Mean Platelet Volume 9 um3 7.4-10.4 Abs Neutrophils 16.8 10^3/uL High 1.5-7.7 Abs Lymphocytes 2.2 10^3/uL 1.0-4.8 Abs Monocytes 0.9 10^3/uL High 0-0.8 Abs Eosinophils 0.3 10^3/uL 0-0.6 Abs Basophils 0.1 10^3/uL 0-0.2 Abs Nucleated RBC 0.02 10^3/uL Manual Differential 02/24/2013 Neutrophil % 62 % 38-83 Band % 14 % High 0-8 Lymphocytes % 14 % Low 25-47 Monocytes % 7 % 0-13 Reactive Lymph % 2 % 0-6 Metamyelocytes % 1 % 0-2 Toxic Granulation 1+ Polychromasia 1+ Laboratory test finding 02/24/2013 Pathologist Review (SEE NOTE) 32 CBC Auto Diff 02/12/2013 White Blood Count 11.0 10^3/uL High 4.8-10.8 Red Blood Count 3.55 10^6/uL Low 4.0-5.4 Hemoglobin 10.0 g/dL Low 12.0-16.0 Hematocrit 33 % Low 35-47 Mean Corpuscular Volume 92 fL 80-97 Mean Corpuscular Hemoglobin 28 pg 27-31 Mean Corpuscular HGB Conc 31 g/dL 31-36 Red Cell Distribution Width 19 % High 10.5-15 Platelet Count 264 10^3/uL 150-450 Mean Platelet Volume 8 um3 7.4-10.4 Abs Neutrophils 8.1 10^3/uL High 1.5-7.7 Abs Lymphocytes 1.4 10^3/uL 1.0-4.8 Abs Monocytes 0.9 10^3/uL High 0-0.8 Abs Eosinophils 0.5 10^3/uL 0-0.6 Abs Basophils 0.2 10^3/uL 0-0.2 Abs Nucleated RBC 0.01 10^3/uL Granulocyte % 73.1 % 38-83 Lymphocyte % 13.0 % Low 25-47 Monocyte % 8.0 % 1-9 Eosinophil % 4.2 % 0-6 Basophil % 1.7 % 0-2 Nucleated Red Blood Cells % 0.1 Laboratory test finding 02/12/2013 Cell Morphology 1+ 33 CBC Auto Diff 01/29/2013 White Blood Count 16.4 10^3/uL High 4.8-10.8 Red Blood Count 3.55 10^6/uL Low 4.0-5.4 Hemoglobin 10.5 g/dL Low 12.0-16.0 Hematocrit 32 % Low 35-47 Mean Corpuscular Volume 90 fL 80-97 Mean Corpuscular Hemoglobin 30 pg 27-31 Mean Corpuscular HGB Conc 33 g/dL 31-36 Red Cell Distribution Width 19 % High 10.5-15 Platelet Count 367 10^3/uL 150-450 Mean Platelet Volume 9 um3 7.4-10.4 Abs Neutrophils 12.8 10^3/uL High 1.5-7.7 Abs Lymphocytes 1.2 10^3/uL 1.0-4.8 Abs Monocytes 1.8 10^3/uL High 0-0.8 Abs Eosinophils 0.4 10^3/uL 0-0.6 Abs Basophils 0.3 10^3/uL High 0-0.2 Abs Nucleated RBC 0.05 10^3/uL Granulocyte % 78.1 % 38-83 Lymphocyte % 7.3 % Low 25-47 Monocyte % 10.7 % High 1-9 Eosinophil % 2.3 % 0-6 Basophil % 1.6 % 0-2 Nucleated Red Blood Cells % 0.3 Cell Morphology 01/29/2013 Macrocytosis 1+ Polychromasia 1+ Manual Differential 01/01/2013 Neutrophil % 54 % 38-83 Band % 24 % High 0-8 Lymphocytes % 13 % Low 25-47 Monocytes % 7 % 0-13 Basophil % 1 % 0-2 Metamyelocytes % 1 % 0-2 Polychromasia 1+ CBC Auto Diff 01/01/2013 White Blood Count 13.4 10^3/uL High 4.8-10.8 Red Blood Count 3.69 10^6/uL Low 4.0-5.4 Hemoglobin 10.9 g/dL Low 12.0-16.0 Hematocrit 33 % Low 35-47 Mean Corpuscular Volume 89 fL 80-97 Mean Corpuscular Hemoglobin 30 pg 27-31 Mean Corpuscular HGB Conc 33 g/dL 31-36 Red Cell Distribution Width 16 % High 10.5-15 Platelet Count 239 10^3/uL 150-450 Mean Platelet Volume 8 um3 7.4-10.4 Abs Neutrophils 10.4 10^3/uL High 1.5-7.7 Abs Lymphocytes 1.4 10^3/uL 1.0-4.8 Abs Monocytes 1.4 10^3/uL High 0-0.8 Abs Eosinophils 0.1 10^3/uL 0-0.6 Abs Basophils 0 10^3/uL 0-0.2 Abs Nucleated RBC 0.01 10^3/uL CBC Auto Diff 12/18/2012 White Blood Count 14.7 10^3/uL High 4.8-10.8 Red Blood Count 3.93 10^6/uL Low 4.0-5.4 Hemoglobin 12.0 g/dL 12.0-16.0 Hematocrit 35 % 35-47 Mean Corpuscular Volume 89 fL 80-97 Mean Corpuscular Hemoglobin 31 pg 27-31 Mean Corpuscular HGB Conc 34 g/dL 31-36 Red Cell Distribution Width 15 % 10.5-15 Platelet Count 201 10^3/uL 150-450 Mean Platelet Volume 9 um3 7.4-10.4 Abs Neutrophils 11.7 10^3/uL High 1.5-7.7 Abs Lymphocytes 1.8 10^3/uL 1.0-4.8 Abs Monocytes 0.9 10^3/uL High 0-0.8 Abs Eosinophils 0.2 10^3/uL 0-0.6 Abs Basophils 0.1 10^3/uL 0-0.2 Abs Nucleated RBC 0.01 10^3/uL Manual Differential 12/18/2012 Neutrophil % 60 % 38-83 Band % 14 % High 0-8 Lymphocytes % 21 % Low 25-47 Monocytes % 2 % 0-13 Basophil % 3 % High 0-2 Polychromasia 1+ CBC Auto Diff 12/04/2012 White Blood Count 10.5 10^3/uL 4.8-10.8 Red Blood Count 4.12 10^6/uL 4.0-5.4 Hemoglobin 12.6 g/dL 12.0-16.0 Hematocrit 36 % 35-47 Mean Corpuscular Volume 88 fL 80-97 Mean Corpuscular Hemoglobin 31 pg 27-31 Mean Corpuscular HGB Conc 35 g/dL 31-36 Red Cell Distribution Width 14 % 10.5-15 Platelet Count 296 10^3/uL 150-450 Mean Platelet Volume 9 um3 7.4-10.4 Abs Neutrophils 7.8 10^3/uL High 1.5-7.7 Abs Lymphocytes 1.8 10^3/uL 1.0-4.8 Abs Monocytes 0.7 10^3/uL 0-0.8 Abs Eosinophils 0.1 10^3/uL 0-0.6 Abs Basophils 0.1 10^3/uL 0-0.2 Abs Nucleated RBC 0.01 10^3/uL Granulocyte % 73.9 % 38-83 Lymphocyte % 17.4 % Low 25-47 Monocyte % 6.8 % 1-9 Eosinophil % 0.9 % 0-6 Basophil % 1.0 % 0-2 Nucleated Red Blood Cells % 0.1 Oncology CBC Manual Diff 11/28/2012 White Blood Count 6.9 10^3/uL 4.8- 10.8 Red Blood Count 4.33 10^6/uL 4.0-5.4 Hemoglobin 13.1 g/dL 12.0-16.0 Hematocrit 38 % 35-47 Mean Corpuscular Volume 88 fL 80-97 Mean Corpuscular Hemoglobin 30 pg 27-31 Mean Corpuscular HGB Conc 35 g/dL 31-36 Red Cell Distribution Width 13 % 10.5-15 Platelet Count 151 10^3/uL 150-450 Mean Platelet Volume 9 um3 7.4-10.4 Neutrophil % 61 % 38-83 Lymphocytes % 28 % 25-47 Monocytes % 2 % 0-13 Eosinophils % 2 % 0-6 Basophil % 1 % 0-2 Reactive Lymph % 3 % 0-6 Metamyelocytes % 2 % 0-2 Promyelocytes % 1 % Toxic Granulation 2+ Issac Cells 1+ Laboratory test finding 11/28/2012 Pathologist Review (SEE NOTE) 34 Oncology CBC Auto Diff 11/19/2012 White Blood Count 9.0 10^3/uL 4.8-10.8 Red Blood Count 4.27 10^6/uL 4.0-5.4 Hemoglobin 12.3 g/dL 12.0-16.0 Hematocrit 38 % 35-47 Mean Corpuscular Volume 88 fL 80-97 Mean Corpuscular Hemoglobin 29 pg 27-31 Mean Corpuscular HGB Conc 33 g/dL 31-36 Red Cell Distribution Width 13 % 10.5-15 Platelet Count 238 10^3/uL 150-450 Mean Platelet Volume 8 um3 7.4-10.4 Abs Neutrophils 7.4 10^3/uL 1.5-7.7 Abs Lymphocytes 1.3 10^3/uL 1.0-4.8 Abs Monocytes 0.2 10^3/uL 0-0.8 Abs Eosinophils 0.1 10^3/uL 0-0.6 Abs Basophils 0 10^3/uL 0-0.2 Manual Differential 11/19/2012 Neutrophil % 83 % 38-83 Lymphocytes % 16 % Low 25-47 Eosinophils % 1 % 0-6 RBC Morphology Normal Normal Comp Metabolic Panel 11/19/2012 Sodium 138 mmol/L 133-145 Potassium 4.1 mmol/L 3.5-5.0 Chloride 102 mmol/L 101-111 Co2 Carbon Dioxide 28.0 mmol/L 22-32 Anion Gap 8.0 mmol/L 2-11 Glucose 89 mg/dL 70-100 Blood Urea Nitrogen 18 mg/dL 6-24 Creatinine 0.90 mg/dL 0.50-1.40 BUN/Creatinine Ratio 20.0 8-20 Calcium 9.6 mg/dL 8.1-9.9 Total Protein 6.8 g/dL 6.2-8.1 Albumin 3.9 g/dL 3.2-5.2 Globulin 2.9 g/dL 2-4 Albumin/Globulin Ratio 1.3 1-3 Total Bilirubin 0.7 mg/dL 0.4-1.5 Alkaline Phosphatase 82 U/L 30-110 Alt 29 U/L 14-54 Ast 30 U/L 12-42 Egfr Non- 61.5 >60 Egfr 79.2 >60 35 CBC Auto Diff 10/11/2012 White Blood Count 7.8 10^3/uL 4.8-10.8 Red Blood Count 4.63 10^6/uL 4.0-5.4 Hemoglobin 13.8 g/dL 12.0-16.0 Hematocrit 41 % 35-47 Mean Corpuscular Volume 88 fL 80-97 Mean Corpuscular Hemoglobin 30 pg 27-31 Mean Corpuscular HGB Conc 34 g/dL 31-36 Red Cell Distribution Width 14 % 10.5-15 Platelet Count 253 10^3/uL 150-450 Mean Platelet Volume 9 um3 7.4-10.4 Abs Neutrophils 4.6 10^3/uL 1.5-7.7 Abs Lymphocytes 2.4 10^3/uL 1.0-4.8 Abs Monocytes 0.5 10^3/uL 0-0.8 Abs Eosinophils 0.2 10^3/uL 0-0.6 Abs Basophils 0.1 10^3/uL 0-0.2 Abs Nucleated RBC 0 10^3/uL Granulocyte % 58.5 % 38-83 Lymphocyte % 30.9 % 25-47 Monocyte % 6.8 % 1-9 Eosinophil % 2.8 % 0-6 Basophil % 1.0 % 0-2 Nucleated Red Blood Cells % 0 Basic Metabolic Panel 10/11/2012 Sodium 138 mmol/L 133-145 Potassium 4.0 mmol/L 3.5-5.0 Chloride 98 mmol/L Low 101-111 Co2 Carbon Dioxide 32.0 mmol/L 22-32 Anion Gap 8.0 mmol/L 2-11 Glucose 100 mg/dL 70-100 Blood Urea Nitrogen 11 mg/dL 6-24 Creatinine 0.90 mg/dL 0.50-1.40 BUN/Creatinine Ratio 12.2 8-20 Calcium 9.9 mg/dL 8.1-9.9 Egfr Non- 61.7 >60 Egfr 79.4 >60 36 Laboratory test 10/11/2012 TSH (Thyroid 2.16 miu/mL 0.34-5.60 finding Stimulating Horm) Cytology Non-Pattern Room Attendant 09/16/2012 Ira RUN DATE: <SEE NOTE> Laboratory test 09/16/2012 Inr 0.76 Low 0.87-0.97 finding Activated Partial Thrombo Time 28.0 seconds 22.18-37.18 Creatinine 09/05/2012 Creatinine 0.90 mg/dL 0.50-1.40 Egfr Non- 61.7 >60 Egfr 79.4 >60 38 Surgical Pathology 08/21/2012 S RUN DATE: <SEE NOTE> Lipid Profile 05/17/2012 Triglycerides 103 mg/dL 40-200 (Trig/Chol/HDL) Cholesterol 162 mg/dL Less than 200 HDL Cholesterol 50 mg/dL 40-60 40 Cholesterol/HDL Ratio 3.2 Average 1-4.44 LDL Cholesterol 91.4 mg/dL Less Than 100 41 Comp Metabolic Panel 05/17/2012 Sodium 139 mmol/L 133-145 Potassium 3.8 mmol/L 3.5-5.0 Chloride 106 mmol/L 101-111 Co2 Carbon Dioxide 25.0 mmol/L 22-32 Anion Gap 8.0 mmol/L 2-11 Glucose 102 mg/dL High 70-100 Blood Urea Nitrogen 13 mg/dL 6-24 Creatinine 0.90 mg/dL 0.50-1.40 BUN/Creatinine Ratio 14.4 8-20 Calcium 9.5 mg/dL 8.1-9.9 Total Protein 6.0 g/dL Low 6.2-8.1 Albumin 4.1 g/dL 3.2-5.2 Globulin 1.9 g/dL Low 2-4 Albumin/Globulin Ratio 2.2 1-3 Total Bilirubin 0.6 mg/dL 0.4-1.5 Alkaline Phosphatase 89 U/L 30-110 Alt 32 U/L 14-54 Ast 31 U/L 12-42 Egfr Non- 61.7 >60 Egfr 79.4 >60 42 Laboratory test 05/17/2012 TSH (Thyroid 3.18 miu/mL 0.34-5.60 finding Stimulating Horm) Laboratory test 05/09/2011 CPK (Creatine Kinase) 386 U/L High 0-170 finding TSH 1.51 MIU/ML 0.34-5.60 Thyroxine Free 0.90 ng/dL 0.61-1.24 Hemoglobin A1c 5.8 % Less Than 6.0 43 Comp Metabolic Panel 05/09/2011 Sodium 141 mmol/L 135-145 Potassium 4.3 mmol/L 3.5-5.0 Chloride 104 mmol/L 101-111 Co2 (Carbon Dioxide) 28.0 mmol/L 22-32 Anion Gap 9.0 mmol/L 2-11 44 Glucose 112 mg/dL High 70-100 BUN 14 mg/dL 6-24 Creatinine 1.2 mg/dL 0.50-1.40 One Over Creatinine 0.83 BUN/Creatinine Ratio 11.7 8-20 Calcium 9.3 mg/dL 8.1-9.9 Total Protein 6.8 GM/DL 6.2-8.1 Albumin 4.1 GM/DL 3.2-5.2 Globulin 2.7 GM/DL 2-4 Albumin/Globulin Ratio 1.5 1-3 Bilirubin Total 0.7 mg/dL 0.4-1.5 45 Alkaline Phosphatase 80 U/L 30-110 Alt (SGPT) 35 U/L 14-54 Ast (Sgot) 37 U/L 12-42 eGFR Non- 44.4 > 60 eGFR 57.1 > 60 46 Lipid Profile (Trig/Chol/HDL) 05/09/2011 Triglyceride 153 mg/dL 40-200 Cholesterol 203 mg/dL High Less Than 200 47 High Density Lipoprotein 50 mg/dL 40-60 48 Cholesterol/HDL Ratio 4.06 AVERAGE 1-4.44 Low Density Lipoprotein 122 mg/dL High Less Than [address] Henson's Lab Panel 05/11/2010 TSH 2.16 MIU/ML 0.34-5.60 Comp Metabolic Panel 05/11/2010 Sodium 139 mmol/L 135-145 Potassium 4.5 mmol/L 3.5-5.0 Chloride 104 mmol/L 101-111 Co2 (Carbon Dioxide) 26.0 mmol/L 22-32 Anion Gap 9.0 mmol/L 2-11 50 Glucose 106 mg/dL High 70-100 BUN 10 mg/dL 6-24 Creatinine 1.00 mg/dL 0.50-1.40 One Over Creatinine 1.00 BUN/Creatinine Ratio 10.0 8-20 Calcium 9.4 mg/dL 8.1-9.9 Total Protein 6.9 GM/DL 6.2-8.1 Albumin 4.3 GM/DL 3.2-5.2 Globulin 2.6 GM/DL 2-4 Albumin/Globulin Ratio 1.7 1-3 Bilirubin Total 0.9 mg/dL 0.4-1.5 51 Alkaline Phosphatase 81 U/L 30-110 Alt (SGPT) 37 U/L 14-54 Ast (Sgot) 42 U/L 12-42 eGFR Non- 55.0 > 60 eGFR 70.7 > 60 52 Lipid Profile (Trig/Chol/HDL) 05/11/2010 Triglyceride 222 mg/dL High 40- 200 Cholesterol 189 mg/dL Less Than 200 53 High Density Lipoprotein 49 mg/dL 40-60 54 Cholesterol/HDL Ratio 3.86 AVERAGE 1-4.44 Low Density Lipoprotein 96 mg/dL Less Than 100 55 CBC With Electronic Diff 05/11/2010 White Blood Count 7.4 CUMM 4.8-10.8 Red Cell Count 4.68 CUMM 4.2-5.4 Hemoglobin 13.9 g/dL 12.0-16.0 Hematocrit 42 % 35-47 Mean Corpuscular Volume 89 um3 79-97 Mean Corpuscular Hemoglob 30 pg 27-31 Mean Corpuscular HGB Cone 33 g/dL 32-36 Redcell Distribution WDTH 14 % 10.5-15 Platelet Count 260 CUMM 150-450 Mean Platelet Volume 9.7 um3 7.4-10.4 Gran % 58.1 % 38-83 Lymph % 32.6 % 25-47 Mononuclear % 8.6 % 1-9 Eosinophil % 0 % 0-6 Basophil % 0.7 % 0-2 Abs Lymphs 2.4 1.0-4.8 Abs Mononuclear 0.6 0-0.8 Absolute Neutrophil Count 4.3 1.5-7.7 Abs Eosinophils 0 0-0.6 Abs Basophils 0.1 0-0.2 Iron & Iron Binding Capacity 05/11/2010 Iron Total 90 g/dL 28-170 Unsaturated Iron Binding 319 g/dL Total Iron Binding Capacity 409 g/dL 250-450 % Iron Saturation 22 % 15-55 Laboratory test finding 05/11/2010 Hemoglobin A1c 5.9 % Less Than 6.[address] Henson's Lab Panel 05/06/2009 TSH 2.48 MIU/ML 0.34-5.60 Comp Metabolic Panel 05/06/2009 Sodium 141 mmol/L 135-145 Potassium 4.2 mmol/L 3.5-5.0 Chloride 107 mmol/L 101-111 Co2 (Carbon Dioxide) 28.0 mmol/L 22-32 Anion Gap 6.0 mmol/L 2-11 57 Glucose 102 mg/dL High 70-100 58 BUN 16 mg/dL 6-24 Creatinine 1.00 mg/dL 0.50-1.40 One Over Creatinine 1.00 BUN/Creatinine Ratio 16.0 8-20 Calcium 9.6 mg/dL 8.1-9.9 59 Total Protein 6.4 GM/DL 6.2-8.1 Albumin 3.9 GM/DL 3.2-5.2 Globulin 2.5 GM/DL 2-4 Albumin/Globulin Ratio 1.6 1-3 Bilirubin Total 0.7 mg/dL 0.4-1.5 60 Alkaline Phosphatase 73 U/L 30-110 Alt (SGPT) 26 U/L 14-54 Ast (Sgot) 29 U/L 12-42 eGFR Non- 58.6 > 60 eGFR 70.9 > 60 61 Lipid Profile (Trig/Chol/HDL) 05/06/2009 Triglyceride 143 mg/dL 40-200 Cholesterol 211 mg/dL High Less Than 200 62 High Density Lipoprotein 42 mg/dL 40-60 63 Cholesterol/HDL Ratio 5.02 AVERAGE High 1-4.44 Low Density Lipoprotein 140 mg/dL High Less Than 100 64 CBC With Electronic Diff 05/06/2009 White Blood Count 7.4 CUMM 4.8-10.8 Red Cell Count 4.43 CUMM 4.2-5.4 Hemoglobin 13.2 g/dL 12.0-16.0 Hematocrit 39 % 35-47 Mean Corpuscular Volume 88 um3 79-97 Mean Corpuscular Hemoglob 30 pg 27-31 Mean Corpuscular HGB Cone 34 g/dL 32-36 Redcell Distribution WDTH 14 % 10.5-15 Platelet Count 292 CUMM 150-450 Mean Platelet Volume 8.7 um3 7.4-10.4 Gran % 57.4 % 38-83 Lymph % 32.3 % 25-47 Mononuclear % 9.4 % High 1-9 Eosinophil % 0 % 0-6 Basophil % 0.9 % 0-2 Abs Lymphs 2.4 1.0-4.8 Abs Mononuclear 0.7 0-0.8 Absolute Neutrophil Count 4.2 1.5-7.7 Abs Eosinophils 0 0-0.6 Abs Basophils 0.1 0-0.2 Thyroxine Free 05/06/2009 Free Thyroxine 0.77 NG/ML 0.61-1.24 65 Laboratory test 07/18/2008 D Dimer Quantitative < 200 < 230 66, 67 finding NG/ML CBC With Manual 07/18/2008 White Blood Count 13.1 CUMM High 4.8-10.8 66 Diff Stat Red Cell Count 4.71 CUMM 4.2-5.4 66 Hemoglobin 14.1 g/dL 12.0-16.0 66 Hematocrit 41 % 35-47 66 Mean Corpuscular Volume 87 um3 79-97 66 Mean Corpuscular Hemoglob 30 pg 27-31 66 Mean Corpuscular HGB Cone 35 g/dL 32-36 66 Redcell Distribution WDTH 14 % 10.5-15 66 Platelet Count 290 CUMM 150-450 66 Mean Platelet Volume 8.9 um3 7.4-10.4 66 Polysegmented Neutrophil 66 % 38-83 66 Band Neutrophil 1 % 0-8 66 Lymphocyte 26 % 25-47 66 Monocyte 4 % 0-13 66 Atypical Lymph 3 % 0-6 66 Absolute Neutrophil Count 8.7 66 RBC Morphology NORMAL 66 Comp Metabolic Panel 07/18/2008 Sodium 138 mmol/L 135-145 66 Potassium 3.6 mmol/L 3.5-5.0 66 Chloride 101 mmol/L 101-111 66 Co2 (Carbon Dioxide) 25.0 mmol/L 22-32 66 Anion Gap 12.0 mmol/L High 2-11 66, 68 Glucose 64 mg/dL Low 70-100 66, 69 BUN 8 mg/dL 6-24 66 Creatinine 0.70 mg/dL 0.50-1.40 66 One Over Creatinine 1.40 66 BUN/Creatinine Ratio 11.4 8-20 66 Calcium 8.8 mg/dL 8.1-9.9 66, 70 Total Protein 7.7 GM/DL 6.2-8.1 66 Albumin 4.5 GM/DL 3.2-5.2 66 Globulin 3.2 GM/DL 2-4 66 Albumin/Globulin Ratio 1.4 1-3 66 Bilirubin Total 0.7 mg/dL 0.4-1.5 66 Alkaline Phosphatase 92 U/L 30-110 66 Alt (SGPT) 44 U/L 14-54 66 Ast (Sgot) 46 U/L High 12-42 66 Laboratory test finding 07/18/2008 Troponin-I (TnI) 0.02 NG/ML 0-0.06 66 , 71 Thyroid Panel 07/18/2008 Free Thyroxine 0.88 NG/ML 0.61-1.24 66, 72 Thyroxine 7.4 g/dL 5-12 66 TSH 1.39 MIU/ML 0.34-5.60 66 Laboratory test finding 07/18/2008 BNP Evaluatr 89.0 pg/mL 0-100 66 CBC With Manual Diff 07/06/2008 White Blood Count 7.9 CUMM 4.8-10.8 Red Cell Count 4.58 CUMM 4.2-5.4 Hemoglobin 13.6 g/dL 12.0-16.0 Hematocrit 40 % 35-47 Mean Corpuscular Volume 86 um3 79-97 Mean Corpuscular Hemoglob 30 pg 27-31 Mean Corpuscular HGB Cone 35 g/dL 32-36 Redcell Distribution WDTH 14 % 10.5-15 Platelet Count 252 CUMM 150-450 Mean Platelet Volume 9.1 um3 7.4-10.4 Polysegmented Neutrophil 64 % 38-83 Lymphocyte 28 % 25-47 Monocyte 6 % 0-13 Eosenophil 1 % 0-6 Basophil 1 % 0-2 Absolute Neutrophil Count 5.0 Anisocytosis SLIGHT Comp Metabolic Panel 07/06/2008 Sodium 138 mmol/L 135-145 Potassium 4.6 mmol/L 3.5-5.0 Chloride 100 mmol/L Low 101-111 Co2 (Carbon Dioxide) 29.0 mmol/L 22-32 Anion Gap 9.0 mmol/L 2-11 73 Glucose 88 mg/dL 70-100 74 BUN 12 mg/dL 6-24 Creatinine 0.80 mg/dL 0.50-1.40 One Over Creatinine 1.20 BUN/Creatinine Ratio 15.0 8-20 Calcium 9.3 mg/dL 8.1-9.9 75 Total Protein 6.7 GM/DL 6.2-8.1 Albumin 4.0 GM/DL 3.2-5.2 Globulin 2.7 GM/DL 2-4 Albumin/Globulin Ratio 1.5 1-3 Bilirubin Total 1.0 mg/dL 0.4-1.5 Alkaline Phosphatase 88 U/L 30-110 Alt (SGPT) 44 U/L 14-54 Ast (Sgot) 42 U/L 12-42 Lipid Profile (Trig/Chol/HDL) 07/06/2008 Triglyceride 251 mg/dL High 40- 200 Cholesterol 201 mg/dL High Less Than 200 76 High Density Lipoprotein 43 mg/dL 40-60 77 Cholesterol/HDL Ratio 4.67 AVERAGE High 1-4.44 Low Density Lipoprotein 108 mg/dL High Less Than 100 78 Laboratory test finding 07/06/2008 TSH 2.43 MIU/ML 0.34-5.60 Laboratory test finding 07/24/2007 Free Thyroxine 0.73 NG/ML 0.61-1.24 79, 80 TSH 1.10 MIU/ML 0.34-5.60 79 Lipid Profile 06/19/2007 Cholesterol/HDL Ratio 4.23 AVERAGE 1-4.44 79 (Trig/Chol/HDL) Cholesterol 203 mg/dL High Less Than 200 79, 81 Triglyceride 217 mg/dL High 40-200 79 High Density Lipoprotein 48 mg/dL 40-60 79 Low Density Lipoprotein 112 mg/dL High Less Than 100 79, 82 CBC With Electronic Diff 06/03/2007 White Blood Count 9.3 CUMM 4.8-10.8 Abs Basophils 0.1 0-0.2 Abs Eosinophils 0 0-0.6 Absolute Neutrophil Count 5.6 1.5-7.7 Abs Lymphs 2.9 1.0-4.8 Abs Mononuclear 0.7 0-0.8 Basophil % 0.8 % 0-2 Hematocrit 41 % 35-47 Hemoglobin 13.9 g/dL 12.0-16.0 Eosinophil % 0 % 0-6 Gran % 60.5 % 38-83 Lymph % 31.3 % 20-45 Mean Corpuscular HGB Cone 34 g/dL 32-36 Mean Corpuscular Hemoglob 29 pg 27-31 Mean Corpuscular Volume 86 um3 79-97 Mean Platelet Volume 9.4 um3 7.4-10.4 Mononuclear % 7.4 % 1-9 Platelet Count 302 CUMM 150-450 Red Cell Count 4.75 CUMM 4.2-5.4 Redcell Distribution WDTH 14 % 10.5-15 Comp Metabolic Panel 06/03/2007 One Over Creatinine 1.11 Anion Gap 6.0 mmol/L 2-11 83 Albumin/Globulin Ratio 1.6 1-3 Albumin 4.2 GM/DL 3.2-5.2 Alkaline Phosphatase 77 U/L 30-110 Alt (SGPT) 27 U/L 14-54 Ast (Sgot) 29 U/L 12-42 BUN 12 mg/dL 6-24 Calcium 9.5 mg/dL 8.7-10.2 Chloride 103 mmol/L 101-111 Co2 (Carbon Dioxide) 31.0 mmol/L 22-32 Globulin 2.6 GM/DL 2-4 Glucose 90 mg/dL 70-105 Potassium 4.8 mmol/L 3.5-5.0 Sodium 140 mmol/L 135-145 Bilirubin Total 0.4 mg/dL 0.4-1.5 Total Protein 6.8 GM/DL 6.2-8.1 BUN/Creatinine Ratio 13.3 8-20 Creatinine 0.9 mg/dL 0.5-1.4 Laboratory test finding 06/03/2007 TSH 0.31 MIU/ML Low 0.34-5.60 1 SEE RESULT BELOW Name: DEBBIE TREJO : [address]: Sury Wyman MD Acct: [id number] Unit: [id number] AGE: 76 Location: [facility] Re07/13/17 SEX: F Status: REG REF SPEC: [id number] STU: 07/13/17-1340 [facility] DR: Sury Wyman MD REQ: [id number] RECD: 07/13/17 STATUS: ALLISON TOMAS DR: Jonathan Henson III, MD _ SOURCE: URINE SPDESC: ORDERED: Urine Culture QUERIES: Urine Source: Clean Catch Procedure Result Reported Site Urine Culture Final 07/14/17- 1312 ML Organism 1 STREP GROUP B Velva Count 1-10,000 (Few) CFU/ML Susceptibility testing of penicillins and other B-lactams approved by FDA for treatment of Streptococcus pyogenes (Group A Strep) and Streptococcus agalactiae (Group B Strep) is not necessary for clinical purposes and need not be done routinely, since as with vancomycin, resistant strains have not been recognized. (CLSI T601-R02;p.66) Positive isolates will be saved for one week. Please call the Microbiology Laboratory if further susceptibility testing is needed. * [facility] - Main Lab . END OF REPORT DEPARTMENT OF PATHOLOGY, [address] [place] [address] Ruddy Espinal M.D. Director [facility] # [id number] 2 Because ethnic data is not always readily available, this report includes an eGFR for both -Americans and non- Americans. The National Kidney Disease Education Program (NKDEP) does not endorse the use of the MDRD equation for patients that are not between the ages of 18 and 70, are , have extremes of body size, muscle mass, or nutritional status, or are non- or non-. According to the National Kidney Foundation, irrespective of diagnosis, the stage of the disease is based on the level of kidney function: Stage Description GFR(mL/min/1.73 m(2)) 1 Kidney damage with normal or decreased GFR 90 2 Kidney damage with mild decrease in GFR 60-89 3 Moderate decrease in GFR 30-59 4 Severe decrease in GFR 15-29 5 Kidney failure <15 (or dialysis) 3 *Ascorbic acid is present which may interfere with detection of blood. 4 Because ethnic data is not always readily available, this report includes an eGFR for both -Americans and non- Americans. The National Kidney Disease Education Program (NKDEP) does not endorse the use of the MDRD equation for patients that are not between the ages of 18 and 70, are , have extremes of body size, muscle mass, or nutritional status, or are non- or non-. According to the National Kidney Foundation, irrespective of diagnosis, the stage of the disease is based on the level of kidney function: Stage Description GFR(mL/min/1.73 m(2)) 1 Kidney damage with normal or decreased GFR 90 2 Kidney damage with mild decrease in GFR 60-89 3 Moderate decrease in GFR 30-59 4 Severe decrease in GFR 15-29 5 Kidney failure <15 (or dialysis) 5 Therapeutic target for the treatment of diabetes mellitus patients is <7% HBA1C, and in selective patients <6.0%. Please refer to [place] [employer] diabetic care guidelines for further information. 6 Because ethnic data is not always readily available, this report includes an eGFR for both -Americans and non- Americans. The National Kidney Disease Education Program (NKDEP) does not endorse the use of the MDRD equation for patients that are not between the ages of 18 and 70, are , have extremes of body size, muscle mass, or nutritional status, or are non- or non-. According to the National Kid[employer] Foundation, irrespective of diagnosis, the stage of the disease is based on the level of kidney function: Stage Description GFR(mL/min/1.73 m(2)) 1 Kidney damage with normal or decreased GFR 90 2 Kidney damage with mild decrease in GFR 60-89 3 Moderate decrease in GFR 30-59 4 Severe decrease in GFR 15-29 5 Kidney failure <15 (or dialysis) 7 >100 to <200 pg/mL: likely compensated congestive heart failure (CHF) 200 to 400 pg/mL: likely moderate CHF >400 pg/mL: likely moderate to severe CHF 8 Desirable <150 Borderline high 150-199 High 200-499 Very High >500 9 Desirable <200 Borderline high 200-239 High >239 10 Low <40 Desirable: 40-60 High: >60 11 Desirable: <100 mg/dL Near Optimal: 100-129 mg/dL Borderline High: 130-159 mg/dL High: 160-189 mg/dL Very High: >189 mg/dL 12 Because ethnic data is not always readily available, this report includes an eGFR for both -Americans and non- Americans. The National Kidney Disease Education Program (NKDEP) does not endorse the use of the MDRD equation for patients that are not between the ages of 18 and 70, are , have extremes of body size, muscle mass, or nutritional status, or are non- or non-. According to the National Kid[employer] Foundation, irrespective of diagnosis, the stage of the disease is based on the level of kidney function: Stage Description GFR(mL/min/1.73 m(2)) 1 Kidney damage with normal or decreased GFR 90 2 Kidney damage with mild decrease in GFR 60-89 3 Moderate decrease in GFR 30-59 4 Severe decrease in GFR 15-29 5 Kidney failure <15 (or dialysis) 13 Assay by Chemiluminescence microparticle immunoassay on the [employer]. Values obtained with different methods or kits cannot be used interchangeably for patient monitoring. Results cannot be interpreted as absolute evidence of the presence or absence of malignancy. The test is not interpretable in . 14 Because ethnic data is not always readily available, this report includes an eGFR for both -Americans and non- Americans. The National Kidney Disease Education Program (NKDEP) does not endorse the use of the MDRD equation for patients that are not between the ages of 18 and 70, are , have extremes of body size, muscle mass, or nutritional status, or are non- or non-. According to the National Kidney Foundation, irrespective of diagnosis, the stage of the disease is based on the level of kidney function: Stage Description GFR(mL/min/1.73 m(2)) 1 Kidney damage with normal or decreased GFR 90 2 Kidney damage with mild decrease in GFR 60-89 3 Moderate decrease in GFR 30-59 4 Severe decrease in GFR 15-29 5 Kidney failure <15 (or dialysis) 15 Desirable <150 Borderline high 150-199 High 200-499 Very High >500 16 Desirable <200 Borderline high 200-239 High >239 17 Low <40 Desirable: 40-60 High: >60 18 Desirable: <100 mg/dL Near Optimal: 100-129 mg/dL Borderline High: 130-159 mg/dL High: 160-189 mg/dL Very High: >189 mg/dL 19 Because ethnic data is not always readily available, this report includes an eGFR for both -Americans and non- Americans. The National Kidney Disease Education Program (NKDEP) does not endorse the use of the MDRD equation for patients that are not between the ages of 18 and 70, are , have extremes of body size, muscle mass, or nutritional status, or are non- or non-. According to the National Kidney Foundation, irrespective of diagnosis, the stage of the disease is based on the level of kidney function: Stage Description GFR(mL/min/1.73 m(2)) 1 Kidney damage with normal or decreased GFR 90 2 Kidney damage with mild decrease in GFR 60-89 3 Moderate decrease in GFR 30-59 4 Severe decrease in GFR 15-29 5 Kidney failure <15 (or dialysis) 20 Desirable <150 Borderline high 150-199 High 200-499 Very High >500 21 Desirable <200 Borderline high 200-239 High >239 22 Low <40 Desirable: 40-60 High: >60 23 Desirable: <100 mg/dL Near Optimal: 100-129 mg/dL Borderline High: 130-159 mg/dL High: 160-189 mg/dL Very High: >189 mg/dL 24 Because ethnic data is not always readily available, this report includes an eGFR for both -Americans and non- Americans. The National Kidney Disease Education Program (NKDEP) does not endorse the use of the MDRD equation for patients that are not between the ages of 18 and 70, are , have extremes of body size, muscle mass, or nutritional status, or are non- or non-. According to the National Kidney Foundation, irrespective of diagnosis, the stage of the disease is based on the level of kidney function: Stage Description GFR(mL/min/1.73 m(2)) 1 Kidney damage with normal or decreased GFR 90 2 Kidney damage with mild decrease in GFR 60-89 3 Moderate decrease in GFR 30-59 4 Severe decrease in GFR 15-29 5 Kidney failure <15 (or dialysis) 25 Therapeutic target for the treatment of diabetes Mellitus patients is <7% HBA1C, and in selective patients <6.0%.Please refer to [place] [employer] Diabetic care guidelines for further information. 26 Assay by Chemiluminescence microparticle immunoassay on the Roxanne Advia Centaur. Values obtained with different methods or kits cannot be used interchangeably for patient monitoring. Results cannot be interpreted as absolute evidence of the presence or absence of malignancy. The test is not interpretable in . 27 FASTING 10 HOUR 28 Desirable <150 Borderline high 150-199 High 200-499 Very High >500 29 Desirable <200 Borderline high 200-239 High >239 30 Low <40 Desirable: 40-60 High: >60 31 Desirable <100 Near Optimal 100-129 Borderline high 130-159 High 160-189 Very High >189 32 CBC and smear reviewed. Leukocytosis and left shift noted. Findings most consistent with acute illness or infection. Normochromic normocytic anemia consistent with chronic disease or acute blood loss. REVIEWED BY RUDDY ESPINAL MD 33 @02/12/13 1301: Cell Morphology added. RFLXG=RBC MORPH. 34 REVIEWED BY RUDDY ESPINAL MD CBC and smear reviewed. Findings consistent with probable treatment effects. 35 Because ethnic data is not always readily available, this report includes an eGFR for both -Americans and non- Americans. The National Kidney Disease Education Program (NKDEP) does not endorse the use of the MDRD equation for patients that are not between the ages of 18 and 70, are , have extremes of body size, muscle mass, or nutritional status, or are non- or non-. According to the National Kidney Foundation, irrespective of diagnosis, the stage of the disease is based on the level of kidney function: Stage Description GFR(mL/min/1.73 m(2)) 1 Kidney damage with normal or decreased GFR 90 2 Kidney damage with mild decrease in GFR 60-89 3 Moderate decrease in GFR 30-59 4 Severe decrease in GFR 15-29 5 Kidney failure <15 (or dialysis) 36 Because ethnic data is not always readily available, this report includes an eGFR for both -Americans and non- Americans. The National Kidney Disease Education Program (NKDEP) does not endorse the use of the MDRD equation for patients that are not between the ages of 18 and 70, are , have extremes of body size, muscle mass, or nutritional status, or are non- or non-. According to the National Kidney Foundation, irrespective of diagnosis, the stage of the disease is based on the level of kidney function: Stage Description GFR(mL/min/1.73 m(2)) 1 Kidney damage with normal or decreased GFR 90 2 Kidney damage with mild decrease in GFR 60-89 3 Moderate decrease in GFR 30-59 4 Severe decrease in GFR 15-29 5 Kidney failure <15 (or dialysis) 37 RUN DATE: 09/17/12 [facility] LAB LIVE PAGE 1 RUN TIME: [address] [place] [address] Specimen Inquiry Name: SHOBHA FUENTESDONNADEBBIE : [address]: Kristal Tan MD Acct: [id number] Unit: [id number] AGE: 71 Location: [facility] Re09/16/12 SEX: F Status: REG REF SPEC: [id number] STU: 09/16/12-[address]: Kristal Tan MD REQ: [id number] RECD: 09/17/12114 STATUS: ROXY TOMAS DR: Jonathan Henson III, MD _ ORDERED: FN ASP SUPERFIC FINAL DIAGNOSIS Right breast, fine needle aspirate: Benign- benign mammary epithelial elements in adipose tissue. No evidence of neoplasia is identified. COMMENTS: The aspirate smears are moderately cellular and demonstrate several cohesive property management bookkeeper benign appearing mammary epithelial groups with associated myoepithelial cells. Bare bipolar nuclei are seen in the background as are numerous aggregates of benign adipose tissue. Correlation with clinical and imaging findings is suggested. BREAST RIGHT CLINICAL HISTORY Lesion right breast. GROSS DESCRIPTION 2 Alcohol fixed slide(s) received from clinician and Needle rinse in CytoLyt solution for thin layer non-lasting machine operator bed test. Signed (signature on file) Ruddy Espinal MD 1088 END OF REPORT * ML=Testing performed at Main Lab DEPARTMENT OF PATHOLOGY, [address] [place] [address] Ruddy Espinal M.D. Director [facility] Permit #[id number] 38 Because ethnic data is not always readily available, this report includes an eGFR for both -Americans and non- Americans. The National Kidney Disease Education Program (NKDEP) does not endorse the use of the MDRD equation for patients that are not between the ages of 18 and 70, are , have extremes of body size, muscle mass, or nutritional status, or are non- or non-. According to the National Kidney Foundation, irrespective of diagnosis, the stage of the disease is based on the level of kidney function: Stage Description GFR(mL/min/1.73 m(2)) 1 Kidney damage with normal or decreased GFR 90 2 Kidney damage with mild decrease in GFR 60-89 3 Moderate decrease in GFR 30-59 4 Severe decrease in GFR 15-29 5 Kidney failure <15 (or dialysis) 39 RUN DATE: 08/27/12 [facility] LAB LIVE PAGE 1 RUN TIME: [address] [place], [place] [address] Specimen Inquiry Name: DEBBIE TREJO : [address]: Jonathan Henson III, MD Acct: [id number] Unit: [id number] AGE: 71 Location: [facility] [place] [facility] Re08/21/12 SEX: F Status: REG REF SPEC: [id number] STU: 08/21/12- SUBM DR: Tyson Gr MD REQ: [id number] RECD: 08/21/121545 STATUS: ROXY TOMAS DR: Jonathan Henson III, MD _ ORDERED: HMWK STAIN, ESTRO REC ST, PROGEST REC ST, E-CADHERIN STAI, LEVEL IV , HER 2 FRANCESCO US LB The following immunohistochemical stains were performed with appropriate controls: E-Cadherin Weak and variably positive. High Molecular Weight Keratin Strongly and diffusely positive. These immunohistochemical stains are most compatible with lobular differentiation. A subset of lobular carcinomas are known to demonstrate weak to moderate variable E- cadherin staining positivity, however in conjunction with the very strong High Molecular Weight Keratin these findings are best interpreted as lobular carcinoma. Immunohistochemical stains were performed with appropriate controls as follows: ER Positive, 3+, greater than 90% of tumor cells. TX Positive, 2-3+, 40% of tumor nuclei. The following immunohistochemical stains were performed at [facility] ([place], [place]) with appropriate controls and interpreted by [facility]: [id number] (Herceptest) Negative (0+). Addendum Signed (signature on file) Ruddy Espianl MD 1334 FINAL DIAGNOSIS Breast, left, core biopsies: A. 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 1. Size: 13.0 mm. maximal single measured span. 2. Tumor extent and distribution: Tumor involves all examined cores and occupies approximately 80% of total core volume. 3. Estimated [place] Grade: a. Estimated Tubule formation: 3. b. Estimated Nuclear Grade: 1. CONTINUED ON NEXT PAGE * ML=Testing performed at Main Lab DEPARTMENT OF PATHOLOGY, [facility] [place], [place] [address] Ruddy Espinal M.D. Director [facility] Permit #[id number] RUN DATE: 08/27/12 [facility] LAB LIVE PAGE 2 RUN TIME: 25[address] [facility] [address] [place], [place] [address] Specimen Inquiry Patient: DEBBIE TREJO [id number] (Continued) FINAL DIAGNOSIS (Continued) c. Estimated Mitotic Count: 1. Combine [place] Histologic Grade: 1/3 (5/9 points). 4. Lymphatic/vascular invasion: Not identified. 5. Perineural invasion: Positive. B. Ductal carcinoma in situ (DCIS): Not identified. C. ER/TX and Her2/Francesco by immunohistochemistry with appropriate controls: 1. ER: Pending. 2. TX: Pending. 3. Her2/Francesco: Pending. D. Microcalcifications: Not identified. E. Other findings: None. F. Predicted TNM Histopathologic Stage: At least [id number]. COMMENTS: The tumor demonstrates a highly infiltrative growth pattern composed almost entirely of thin cores, single cells, and single file arrangements. Rare elements demonstrating abortive glandular structures are apparent. The tumor demonstrates features of lobular carcinoma including targetoid invasion around pre-existing structures and intracytoplasmic mucin vacuoles. Immunohistochemical stains for E-cadherin and High Molecular Weight Keratin are pending to further characterize the differentiation of this malignancy. Immunohistochemical stains for ER, TX, and Her2/Francesco are also pending. PRE-OPERATIVE DIAGNOSIS Shadowing mass left breast. GROSS DESCRIPTION The specimen is received in formalin labeled Debbie Mitchell Vtdonna, Left Breast Core Biopsy, and consists of multiple primarily floating house and yellow fibrofatty cores measuring 1.9 x 0.9 x 0.2 cm. in aggregate. Submitted entirely, one cassette. CONTINUED ON NEXT PAGE * ML=Testing performed at Main Lab DEPARTMENT OF PATHOLOGY, [address] [place] [address] Ruddy Espinal M.D. Director [facility] Permit #[id number] RUN DATE: 08/27/12 [facility] LAB LIVE PAGE 3 RUN TIME: [address] [place] [address] Specimen Inquiry Patient: SHOBHA KIRKDEBBIE [id number] (Continued) GROSS DESCRIPTION (Continued) Signed (signature on file) Ruddy Espinal MD 1451 END OF REPORT * ML=Testing performed at Main Lab DEPARTMENT OF PATHOLOGY, [address] [place] [address] Ruddy Espinal M.D. Director [facility] Permit #[id number] HDL Interpretation: Undesirable: High Risk: Less than 40 MG/DL Desirable: Low Risk: Greater than 60 MG/DL 41 LDL Interpretation: Low Risk Optimal Level: LDL Less than 100 MG/DL Near or Above Optimal: LDL 100-129 MG/DL Borderline High Risk: LDL 130-159 MG/DL High Risk: LDL 160-189 MG/DL Very High Risk: LDL Greater than 189 MG/DL 42 Because ethnic data is not always readily available, this report includes an eGFR for both -Americans and non- Americans. The National Kidney Disease Education Program (NKDEP) does not endorse the use of the MDRD equation for patients that are not between the ages of 18 and 70, are , have extremes of body size, muscle mass, or nutritional status, or are non- or non-. According to the National Kidney Foundation, irrespective of diagnosis, the stage of the disease is based on the level of kidney function: Stage Description GFR(mL/min/1.73 m(2)) 1 Kidney damage with normal or decreased GFR 90 2 Kidney damage with mild decrease in GFR 60-89 3 Moderate decrease in GFR 30-59 4 Severe decrease in GFR 15-29 5 Kidney failure <15 (or dialysis) 43 THERAPEUTIC TARGET FOR THE TREATMENT OF DIABETES MELLITUS PATIENTS IS <7% HBA1C, AND IN SELECTIVE PATIENTS <6.0%. PLEASE REFER TO [place] [employer] DIABETIC CARE GUIDELINES FOR FURTHER INFORMATION. 44 Anion gap measurement may be of limited value in the presence of any alkalosis, especially in a combined acid base disorder. . 45 A metabolite of Naproxen, O-desmethylnaproxen, has been shown to interfere with the Jendrassik-Alexey method for measuring total bilirubin. Samples from patients who have taken Naproxen have shown spurious elevation in total bilirubin levels. 46 Because ethnic data is not always readily available, this report includes an eGFR for both -Americans and non- Americans. The National Kidney Disease Education Program (NKDEP) does not endorse the use of the MDRD equation for patients that are not between the ages of 18 and 70, are , have extremes of body size, muscle mass, or nutritional status, or are non- or non-. According to the National Kidney Foundation, irrespective of diagnosis, the stage of the disease is based on the level of kidney function: Stage Description GFR(mL/min/1.73 m(2)) 1 Kidney damage with normal or decreased GFR 90 2 Kidney damage with mild decrease in GFR 60-89 3 Moderate decrease in GFR 30-59 4 Severe decrease in GFR 15-29 5 Kidney failure <15 (or dialysis) 47 CHOLESTEROL INTERPRETATION: Desirable: Less than 200 MG/DL Borderline-High Risk: 200-239 MG/DL High-Risk: 240 MG/DL and over 48 HDL INTERPRETATION: Undesirable: High Risk: Less than 40 MG/DL Desirable: Low Risk: Greater than 60 MG/DL 49 LDL INTERPRETATION: Low Risk Optimal Level: LDL Less than 100 MG/DL Near or Above Optimal: LDL 100-129 MG/DL Borderline High Risk: LDL 130-159 MG/DL High Risk: LDL 160-189 MG/DL Very High Risk: LDL Greater than 189 MG/DL 50 Anion gap measurement may be of limited value in the presence of any alkalosis, especially in a combined acid base disorder. . 51 A metabolite of Naproxen, O-desmethylnaproxen, has been shown to interfere with the Jendrassik-Alexey method for measuring total bilirubin. Samples from patients who have taken Naproxen have shown spurious elevation in total bilirubin levels. 52 Because ethnic data is not always readily available, this report includes an eGFR for both -Americans and non- Americans. The National Kidney Disease Education Program (NKDEP) does not endorse the use of the MDRD equation for patients that are not between the ages of 18 and 70, are , have extremes of body size, muscle mass, or nutritional status, or are non- or non-. According to the National Kidney Foundation, irrespective of diagnosis, the stage of the disease is based on the level of kidney function: Stage Description GFR(mL/min/1.73 m(2)) 1 Kidney damage with normal or decreased GFR 90 2 Kidney damage with mild decrease in GFR 60-89 3 Moderate decrease in GFR 30-59 4 Severe decrease in GFR 15-29 5 Kidney failure <15 (or dialysis) 53 CHOLESTEROL INTERPRETATION: Desirable: Less than 200 MG/DL Borderline-High Risk: 200-239 MG/DL High-Risk: 240 MG/DL and over 54 HDL INTERPRETATION: Undesirable: High Risk: Less than 40 MG/DL Desirable: Low Risk: Greater than 60 MG/DL 55 LDL INTERPRETATION: Low Risk Optimal Level: LDL Less than 100 MG/DL Near or Above Optimal: LDL 100-129 MG/DL Borderline High Risk: LDL 130-159 MG/DL High Risk: LDL 160-189 MG/DL Very High Risk: LDL Greater than 189 MG/DL 56 THERAPEUTIC TARGET FOR THE TREATMENT OF DIABETES MELLITUS PATIENTS IS <7% HBA1C, AND IN SELECTIVE PATIENTS <6.0%. PLEASE REFER TO [place] [employer] DIABETIC CARE GUIDELINES FOR FURTHER INFORMATION. 57 Anion gap measurement may be of limited value in the presence of any alkalosis, especially in a combined acid base disorder. . 58 Note change in reference range as of 11/21/07. The change was based on recommendations from the [place] [employer]. 59 Please note change in reference range effective 07 . 60 A metabolite of Naproxen, O-desmethylnaproxen, has been shown to interfere with the Jendrassik-Fernley method for measuring total bilirubin. Samples from patients who have taken Naproxen have shown spurious elevation in total bilirubin levels. 61 Because ethnic data is not always readily available, this report includes an eGFR for both -Americans and non- Americans. The National Kidney Disease Education Program (NKDEP) does not endorse the use of the MDRD equation for patients that are not between the ages of 18 and 70, are , have extremes of body size, muscle mass, or nutritional status, or are non- or non-. According to the National Kidney Foundation, irrespective of diagnosis, the stage of the disease is based on the level of kidney function: Stage Description GFR(mL/min/1.73 m(2)) 1 Kidney damage with normal or decreased GFR 90 2 Kidney damage with mild decrease in GFR 60-89 3 Moderate decrease in GFR 30-59 4 Severe decrease in GFR 15-29 5 Kidney failure <15 (or dialysis) 62 CHOLESTEROL INTERPRETATION: Desirable: Less than 200 MG/DL Borderline-High Risk: 200-239 MG/DL High-Risk: 240 MG/DL and over 63 HDL INTERPRETATION: Undesirable: High Risk: Less than 40 MG/DL Desirable: Low Risk: Greater than 60 MG/DL 64 LDL INTERPRETATION: Low Risk Optimal Level: LDL Less than 100 MG/DL Near or Above Optimal: LDL 100-129 MG/DL Borderline High Risk: LDL 130-159 MG/DL High Risk: LDL 160-189 MG/DL Very High Risk: LDL Greater than 189 MG/DL 65 PLEASE NOTE NEW REFERENCE RANGES. 66 COMMENTS? BLOOD IN LAB 67 Please note: The following may produce a false positive D Dimer test: - Rheumatoid factor greater than 60 IU/ml - Plasma hemoglobin greater than 0.05 gm/dl - Bilirubin greater than 50 mg/dl - Lipids greater than 1000 mg/dl - FDP greater than 20 ug/ml . 68 Anion gap measurement may be of limited value in the presence of any alkalosis, especially in a combined acid base disorder. . 69 Note change in reference range as of 11/21/07. The change was based on recommendations from the [place] [employer]. 70 Please note change in reference range effective 07 . 71 New Reference Range and Interpretation effective 01/03/02 TnI (ng/ml) INTERPRETATION <0.06 ng/ml NOT SUPPORTIVE OF DIAGNOSIS OF MA 0.06 - 0.50 ng/ml INDETERMINATE: SUGGEST SERIAL STUDIES IF CLINICALLY INDICATED. > 0.5 ng/ml CONSISTENT WITH DIAGNOSIS OF MA . 72 PLEASE NOTE NEW REFERENCE RANGES. 73 Anion gap measurement may be of limited value in the presence of any alkalosis, especially in a combined acid base disorder. . 74 Note change in reference range as of 11/21/07. The change was based on recommendations from the [place] [employer]. 75 Please note change in reference range effective 07 . 76 CHOLESTEROL INTERPRETATION: Desirable: Less than 200 MG/DL Borderline-High Risk: 200-239 MG/DL High-Risk: 240 MG/DL and over 77 HDL INTERPRETATION: Undesirable: High Risk: Less than 40 MG/DL Desirable: Low Risk: Greater than 60 MG/DL 78 LDL INTERPRETATION: Low Risk Optimal Level: LDL Less than 100 MG/DL Near or Above Optimal: LDL 100-129 MG/DL Borderline High Risk: LDL 130-159 MG/DL High Risk: LDL 160-189 MG/DL Very High Risk: LDL Greater than 189 MG/DL 79 PATIENT MAY HAVE RESULTS PER DOCTOR'S AUTHORIZATION. Questions regarding this report should be directed to your doctor. 80 PLEASE NOTE NEW REFERENCE RANGES. 81 Classification: Borderline High . 82 CALCULATED LDL APPROXIMATES THE VALUE OF A DIRECT LDL MEASUREMENT. Classification: Near or above optimal . 83 Anion gap measurement may be of limited value in the presence of any alkalosis, especially in a combined acid base disorder. . Procedures Date CPT Code Description Status 07/06/2017 67026 Echocardiogram, Limited Study Completed 07/06/2017 96515 Echocardiogram, Limited Study Completed 06/27/2017 15365 EKG Tracing & Interpretation Completed 03/23/2017 17205 ECHO Transthoracic, Real-Time 2D With Doppler And Color Completed Flow 03/23/2017 84413 ECHO Transthoracic, Real-Time 2D With Doppler And Color Completed Flow 03/14/2017 74141 EKG Tracing & Interpretation Completed 02/28/2017 36552 Stress Test Completed 02/28/2017 03279 Myocardial Perfusion Imaging Tomographic (Spect) Completed Multiple Studies 02/20/2017 44429 EKG Tracing & Interpretation Completed 10/19/2016 Mammogram Completed 10/19/2016 Bone Mineral Density Test Completed 10/19/2015 Mammogram Completed 10/19/2015 Bone Mineral Density Test Completed 10/12/2014 Mammogram Completed 09/09/2014 Bone Mineral Density Test Completed 01/27/2014 Colonoscopy Completed 12/23/2012 80378 ECHO Transthorasic Realtime 2D W Doppler & Color Completed Flow Hosp 11/01/2012 51236 ECHO Transthorasic Realtime 2D W Doppler & Color Completed Flow Hosp 10/08/2012 Bone Mineral Density Test Completed 08/23/2012 Mammogram Completed 08/21/2012 Mammogram Completed 08/13/2012 Mammogram Completed 08/08/2011 Mammogram Completed 06/02/2011 45048 Noninvasive Ear Or Pulse Oximetry For Oxygen Saturation Completed 06/09/2010 Mammogram Completed 10/06/2009 Bone Mineral Density Test Completed 10/06/2009 Mammogram Completed 07/06/2008 11886 EKG Tracing & Interpretation Completed 06/24/2007 Colonoscopy Completed 04/04/2004 Colonoscopy Completed Encounters Type Date Location Provider CPT E/M Dx Office Visit 06/27/2017 [facility] [place] [address] I50.42 2:40p [facility] FACC Z01.810 I10 G47.9 C50.919 R73.01 J45.998 F17.201 Office Visit 06/18/2017 1:00p [facility] M.D. 93696 M17.12 C.M.A. M21.062 M25.562 M25.462 Office Visit 05/31/2017 12:00p [facility] [place] [address] R09.02 Services Of [facility] Office Visit 05/14/2017 1:00p [facility] [place] [address] G47.9 Services [facility] R09.02 Office Visit 04/25/2017 1:40p [facility] [place] [address] I42.9 [facility] FACC I10 C50.919 R73.01 Office Visit 03/28/2017 4:00p [facility] [place] [address] I42.9 [facility] FACC R73.01 I10 C50.919 Office Visit 03/14/2017 3:00p [facility] [place] [address] I42.9 [facility] FACC R06.02 I10 J45.909 C50.919 Office Visit 02/20/2017 2:20p [facility] Internal Medicine - Jonathan Henson, [address] I10 Blessing Acosta E03.9 J45.909 R07.9 Office Visit 05/29/2016 2:30p [facility] Internal Medicine - Nurse Visit C 61806 Z23 [place] Office Visit 02/16/2016 11:00a [facility] [place], 51380 M17.12 Laura Acosta M75.41 Office Visit 02/07/2016 11:20a [facility] Internal Medicine - Jonathan Henson, 22942 I10 Blessing Acosta E03.9 Z85.3 Office Visit 02/08/2015 3:00p [facility] Internal Medicine Jonathan Henson, 29455 J20.9 - Lan Acosta Office Visit 01/14/2015 11:40a [facility] Internal Medicine Jonathan Henson, 82916 I10 - Lan Acosta E03.9 J45.909 Office Visit 11/24/2014 2:00p [facility], 09952 726.61 Laura Acosta Office Visit 06/18/2014 2:40p [facility] Internal Medicine Jonathan Henson, 23387 373.31 - Lan Acosta Office Visit 05/28/2014 10:00a [facility] [place] [address] 782.9 - [place] 719.46 Office Visit 03/12/2014 4:00p [facility] Internal Medicine Jonathan Henson, 56740 719.46 - Lan Acosta Office Visit 01/01/2014 11:00a [facility] Internal Medicine Jonathan Henson, 95359 401.1 - Lan Sandoval.DAmadou 244.9 493.90 790.21 311 174.9 Office Visit 04/22/2013 10:00a [facility] Internal Medicine Jonathan Henson, 81589 726.19 - [place] M.Israel Office Visit 12/18/2012 10:20a [facility] Internal Medicine Jonathan Henson, 27101 401.1 - [place] M.DAmadou 244.9 493.90 272.0 790.21 174.9 Office Visit 11/14/2011 10:00a [facility] Internal Medicine Jonathan Henson, 16564 401.1 - Lan Sandoval.Israel 272.0 244.9 493.90 Office Visit 06/02/2011 10:40a [facility] Internal [facility] Jonathan Henson, 33855 466.0 - Lan Acosta Office Visit 05/16/2011 10:00a [facility] Internal Medicine Jonathan Henson, 80561 V70.0 - Lan Sandoval.[place] 401.1 244.9 272.0 493.90 790.21 311 Office Visit 05/11/2010 9:00a DO Not Use Employee Benefits Manager At [facility], 29320 V70.0 [facility] Lori.Israel 401.1 354.0 244.9 493.90 272.0 790.21 311 Office Visit 11/08/2009 9:20a DO Not Use Employee Benefits Manager At [facility] Mike Natividad, 72147 401.1 [facility] Lori.Israel 244.9 493.90 272.0 311 Office Visit 05/05/2009 1:40p DO Not Use Employee Benefits Manager At [facility], 67231 401.1 [facility] Lori.Israel 493.90 272.2 244.9 V04.81 V03.82 Office Visit 07/06/2008 9:00a [facility], 35856 493.90 [facility]5 401.1 Office Visit 07/24/2007 10:00a [facility], 09377 782.3 [facility] 401.1 Office Visit 07/08/2007 1:30p [facility] Jonathan Henson, 93194 719.44 [facility] Office Visit 06/03/2007 10:00a [facility] Jonathan Henson, 72273 244.9 [facility] 493.90 401.1 Office Visit 11/28/2006 9:30a [facility] Jonathan Henson, 87151 477.9 [facility] 493.90 311 Plan of Care Future Appointment(s):01/23/2018 11:40 am - Jonathan Henson M.D. at [facility] Internal Medicine - Yfgffxsjg15/09/2018 11:30 am - Sury Wyman M.D. at [facility]07/26/2017 10:30 am - Nixon Antonio PA-C at [facility]07/26/2017 10:30 am - SUDHA Hart at [facility]07/26/2017 10:30 am - Sury Wyman M.D. at [facility].08/31/2017 11:30 am - Michelle Nix MD at [facility]07/24/2017 - Jonathan Henson M.D.Z01.810 Encounter for preprocedural cardiovascular examinationComments:No contraindications to planned knee hcfhfhaJ86.12 Unilateral primary osteoarthritis, left kneeComments:L TKA planned per kczhlI42 Essential (primary ) hypertensionComments:BPs goodE03.9 Hypothyroidism, unspecifiedComments:On RxJ45.909 Unspecified asthma, uncomplicatedComments:(+) asthma/COPD; stable with Rx and pt follows with pulmonary/allergy. No acute resp problems. (+) abnormal home sleep study with some desaturations, but felt non-diagnostic for sleep apnea. Pt withno sleep problems/sx.I42.9 Cardiomyopathy, unspecifiedComments:Slightly decreased EF; stable with cardiology rechecks. Stress testing (-) for ischemia
--- OUTSIDE RECORDS SUMMARY | 2017-07-26 09:31 | XMS REPORT ---
:1940 External Reference #:[id number] Author Organization [facility] Address [address], [address] [place] [address] Phone [phone] Care Team Providers Name Role Phone Jonathan Henson III, MD Care Team Information Curber Unavailable Jonathan Henson III, MD Primary Care Physician Unavailable Payers Type Date Identification Numbers Payment Provider Subscriber Commercial Policy Number: [id number] [employer] Xenia Cisneros PayID: [id number] [address] [address] [place] [address] Problems Description No Information Family History Date Family Member(s) Problem(s) Comments Father Emphysema Father due to [place] () Mother Angina First Sister Chronic Obstructive Pulmonary Disease (COPD) Social History Type Date Description Comments Marital Status Patient is Home Environment Lives Alone Occupation Retired Work Status Retired Cigarette Use Quit 1989 ETOH Use Denies alcohol use Smoking Patient is a former smoker 1 PPD x20 years Recreational Drug Use Denies Drug Use Daily Caffeine Consumes on average 2 cups of regular coffee per day Exercise Type/Frequency Exercises sporadically Allergies, Adverse Reactions, Alerts Date Description Reaction Status Severity Comments 06/28/2017 NKDA active Medications Medication Date Status Form Strength Qnty SIG Indications Ordering Provider Spiriva Active Aerosol 2.5mcg/Act 4gm take 2 J44.9 Miguel Respimat 018 puffs MD Latonya once daily. Please load and teach inhaler. Bupropion HCL /0 Active Tablets ER 300mg 1 by Unknown ER (XL) 000 24HR mouth every day Anastrozole Active Tablets 1mg 1 by Unknown 000 mouth every day Losartan Active Tablets 25mg 1 by Unknown Potassium 000 mouth every day Levoxyl Active Tablets 100mcg 1 by Unknown 000 mouth every day Furosemide 0 Active Tablets 20mg 1 by Unknown 000 mouth every other day Carvedilol Active Tablets 12.5mg take one Unknown 000 tablet by mouth twice a day Aspirin Active Tablets DR 81mg 1 by Unknown 000 mouth every day Zolpidem Active Tablets 10mg 1 by Unknown Tartrate 000 mouth as needed Breo Ellipta Active Aerosol 100-25mcg/I take 1 Unknown 000 nh puff once daily. rinse mouth with water after use. Advair Diskus Hx Aerosol 500-50mcg/D take 1 Unknown 000 - ose puff twice 018 daily Vital Signs Date Vital Result Comment 07/16/2017 BP Systolic Sitting Left Arm 102 mmHg BP Diastolic Sitting Left Arm 68 mmHg Heart Rate 75 /min Respiratory Rate 18 /min Weight 194.00 lb O2 Saturation Level with Exercise 91 % 06/28/2017 BP Systolic Sitting Left Arm 126 mmHg BP Diastolic Sitting Left Arm 74 mmHg Heart Rate 67 /min Respiratory Rate 18 /min Weight 197.00 lb O2 % BldC Oximetry 99 % room air Results Description No Information Procedures Description No Information Encounters Type Date Location Provider CPT E/M Dx Office Visit 06/28/2017 2:00p [place] [address] R09.02 J45.20 Plan of Care Future Appointment(s):01/15/2018 1:45 pm - Miguel Hanks MD at [facility]04/16/ 2018 - Miguel Hanks MDJ44.9 Chronic obstructive pulmonary disease, unspecifiedNew Medication:Spiriva Respimat 2.5 mcg/ActComments:I reviewed her PFT results with her and 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 Again advised to stop Qvar. Start Spiriva Respimat 2.5 mcg 2 puffs once daily. Continue Breo and as needed albuterol.Follow up:6 qyhlhtY36.02 HypoxemiaComments :Nocturnal hypoxia may be secondary to COPD and AVANI. Home sleep study tonight. Oxygen needs will be based on if she desaturates on CPAP.
--- OUTSIDE RECORDS SUMMARY | 2017-07-26 09:32 | XMS REPORT ---
:1940 External Reference #:[id number] Author Organization [facility] Address [address], [address] [place] [address] Phone [phone] Care Team Providers Name Role Phone Jonathan Henson III, MD Care Team Information Inspector And Mender Unavailable Jonathan Henson III, MD Primary Care Physician Unavailable Payers Type Date Identification Numbers Payment Provider Subscriber Commercial Policy Number: [id number] [employer] Xenia Cisneros PayID: [id number] [address] [address] [place] [address] Problems Description No Information Family History Date Family Member(s) Problem(s) Comments Father Emphysema Father due to [place] () Mother Angina First Sister Chronic Obstructive [...] Form Strength Qnty SIG Indications Ordering Provider Bupropion HCL 0 Active Tablets ER 300mg 1 by Unknown ER (XL) 000 24HR mouth every day Anastrozole 0 Active Tablets 1mg 1 by Unknown 000 mouth every day Losartan 0 Active Tablets 25mg 1 by Unknown Potassium 000 mouth every day Levoxyl 0 Active Tablets 100mcg 1 by Unknown 000 mouth every day Furosemide 0 Active Tablets 20mg 1 by Unknown 000 mouth every day Carvedilol Active Tablets 12.5mg take one [...] daily Vital Signs Date Vital Result Comment 06/28/2017 BP Systolic Sitting Left Arm 126 mmHg BP Diastolic Sitting Left Arm 74 mmHg Heart Rate 67 /min Respiratory Rate 18 /min Weight 197.00 lb O2 % BldC Oximetry 99 % room air Results Description No Information Procedures Description No Information Plan of Care Future Appointment(s):07/16/2017 11:30 am - Miguel Hanks MD at [facility]06/29/ 2018 - Miguel Hanks, MDR09.02 HypoxemiaComments:I discused with her that she needs a sleep study to rule out AVANI. It is unlikely that she has cardiopulmonary disease causing the nocturnal desaturations as her resting O2 today is 99%. I am checking achest x-ray and full PFTs.Follow up:2 weeks.J45.20 Mild intermittent asthma, uncomplicatedNew Orders:PFT With BronchodilatorComments:Stop Qvar. Continue Breo and as needed albuterol. I am requesting records from machine accountant, telephone sex worker, and her electrical power station technician.
--- OUTSIDE RECORDS SUMMARY | 2017-07-26 09:32 | XMS REPORT ---
:1940 External Reference #:[id number] Author Organization [facility] Address [address] [address] Phone [phone] Care Team Providers Name Role Phone Jonathan Henson III, MD Primary Care Physician Unavailable Payers Type Date Identification Payment Subscriber Numbers Provider Health Maintenance Effective: Policy Number: Medicare Carlos Mitchell IceBreaker [place] 04/02/2012 [id number] o [place] Group Number: [id number] [address] [address] PayID: [id number] MarshallVANESSA taylor [id number] Medigap Part B Expires: Policy Number: [facility] De[facility] 04/01/2011 [id number] [facility] [place] PayID: [id number] [address] [place] [address] Medigap Part B Effective: 10/01/2007 Policy Number: Medicare Debbie Mitchell [id number] [place] Expires: 04/01/2011 PayID: [id number] [address] [place] [address] Problems Date Description Provider Status Onset: 05/16/2011 [...] Dorman M.D. Active Onset: 06/18/2017 Acquired genu darrius Wyman M.D. Active Family History Date Family Member(s) Problem(s) Comments General Heart Disease General Diabetes General Cancer Father due to age 69 MS () Mother Rheumatoid Arthritis Mother due to age 72 ? 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 Walks Allergies, Adverse Reactions, Alerts Date Description Reaction Status Severity Comments 03/14/2017 Latex active 03/14/2017 Scallops active 03/14/2017 NKDA inactive Medications Medication Date Status Form Strength Qnty SIG Indications Ordering Provider Carvedilol 03/28 Active Tablets 12.5mg 180ta 1 by I42.9 Dustin Shrestha bs mouth Dustin, DO twice a FACC day Furosemide 03/23 Active Tablets 20mg 45tab take one Dustin Shrestha s tablet by Dustin, DO mouth FACC every other day Losartan 03/23 Active Tablets 25mg 90tab 1 by Dustin Shrestha s mouth Hcan, DO every day FACC Aspirin 03/[address] 81mg 90tab 1 by Dustin Shrestha /2016 s mouth Chan, DO every day [facility] Prosthetic Bra 12/04 Active Misc Jonathan Mckeon Dave Henson Bupropion HCL ER 04/24 Active Tablets ER 300mg 90tab Take 1 Jonathan Mckeon (XL) 24HR s Tablet Natividad, Daily M.DAmadou Acidophilus 05/11 Active Capsules 1 po qd Jonathan Mckeon Dave Henson Levoxyl 05/11 Active Tablets 100mcg 90tab Take 1 Jonathan Mckeon s Tablet Natividad, Daily M.DAmadou Calcium/Magnesium Active Tablets 1 PO qd Other /Zinc Physician Practices Multi-Vitamin Active Tablets 100ta 1 PO qd Barken, bs MD [facility] Vit C Active Tablets 500mg. 1 PO qd Unknown / Vitamin D-3 Active Tablets 1000Units 1 po qd Unknown / Fish Oil Active Capsules 1 po qd Unknown / Chromium Active Tablets 800mcg 1 by Unknown [...] tabs Unknown /0000 twice a day prn Qvar Active Aerosol 80mcg/Act 2 puff Unknown /0000 twice a day Advair Diskus Active Aerosol 500-50mcg inhale Unknown /0000 /Dose one dose by mouth twice daily Concentrated CBD Active 25mg 2 cap po Unknown /0000 daily ( Has Not Start Yet) CBD Active Oil 30 drops Unknown / daily ( started using 2 weeks ago ) Carvedilol 03/14 Hx Tablets 6.25mg 60tab Take 1 by I42.9 Dustin S. /2016 s mouth Chan, DO - twice [...] Hx Aerosol 108(90Bas 1unit 2 puffs Jonathan EAmadou /2012 e) s po qid Natividad, - mcg/Act prn M.D. 05/13 Zithromax Z-Elver 06/01 Hx Tablets 250mg 1Pack as per Jonathan Mckeon /2011 direction Natividad, - s M.D. 11/13 Proair HFA 06/01 Hx Aerosol 108(90Bas 1unit 2 puffs Jonathan EAmadou /2011 e) mcg/ac s po qid Natividad, - prn M.D. 12/18 Tessalon Bella 06/01 Hx Capsules 100mg 30cap 1-2 po [...] po qd Jonathan Mckeon Hydrobromide /2008 benson Henson, - M.D. 05/11 Albuterol Inhaler 07/06 Hx 1unit 2 puffs Jonathan Mckeon s up to Glen Bui M.D. 02/08 Citalopram 08/14 Hx Tablets 20mg 90tab 1 po qd Jonathan Mckeon Hydrobromide Glen Johnson M.D. 07/06 Levoxyl 06/05 Hx Tablets 100mcg 90tab 1 po qd Unruly /2007 s Glen Lemos M.D.,FACP 05/11 Hydrochlorothiazi 06/02 Hx Capsules 12.5mg 90cap take 1 Jonathan Mckeon de s capsule Natividad, - daily Dave 03/23 Lisinopril/Hydroc 11/28 Hx Tablets 10-12.5 90tab 1 po qd Unknown hlorothiazide /2006 s - 06/02 Lexapro 11/28 Hx Tablets 20mg 90tab 1 PO qd Jonathan Mckeon /2006 Glen Johnson M.D. 08/14 Quercetine Plus 11/28 Hx 500mg. 1 PO qd Jonathan Mckeon /2006 Glen Henson M.D. 05/05 Advair Diskus Hx Misc 500/50 1unit 1 puff Natividad / s bid III, Glen Mckeon, 05/25 Co Enzyme Q-10 Hx Capsules 50mg 1 PO qd Other Physician - Practices 05/11 Diovan HCT Hx Tablets 80/12.5 90tab 1 PO qd Eddie, / s MD Huber - 11/28 Vitamin E Hx Capsules 400Unit 1 PO qd Other /0000 Physician - Practices 05/11 Alpha-Lipoic Acid Hx 100mg. 1 PO qd Other / Physician - Practices 05/11 Chromium Hx Tablets 200mg. 1 PO qd Other Picolinate / Physician - Practices 05/11 Zyrtec Hx Tablets 10mg 90tab 1 po qd Jonathan EAmadou / s Glen Milan M.D. 07/06 Patanol Hx Solution 0.1% 1unit 1 gtt Jonathan EAmadou / s Both Eyes Natividad - qd prn Dave 05/05 Levoxyl Hx Tablets 125mcg 90tab 1 PO qd Jonathan E. /0000 s Glen Henson M.D. 06/05 Ambien CR Hx Tablets ER 12.5mg 30tab 1 tablet Jonathan E. /0000 s po q hs Natividad - vickin Dave 11/08 Grapeseed Extract Hx 1 PO qd [...] 1 by G47.00 Ovi / s mouth WESTLEY Farr - every 05/13 night at bedtime as needed sleep insomnia Turmeric Hx Capsules 500mg 2 by Unknown /0000 mouth - every day 07/25 Spiriva Hx Capsules 18mcg 1 Unknown Handihaler / inhalatio - n by 04/03 every morning Levocetirizine Hx Tablets 5mg 1 by Unknown Dihydrochloride mouth - every day 03/06 Triamcinolone Hx Cream 0.1% apply Unknown Acetonide thin film - twice 05/13 daily Triple Paste AF Hx Ointment 2% Unknown / - 02/19 Triamcinolone Hx Ointment 0.1% Unknown Acetonide /0000 - 02/19 Zolpidem Tartrate Hx Tablets 5mg Unknown / - 02/19 Travatan Z Hx Solution 0.004% 1 drop Unknown / each eye - once 02/19 Ketoconazole Hx Cream 2% apply Unknown / twice a - day 04/02 Prednisolone Hx Suspension 1% 4 drops [place], Acetate /0000 per day Glen Teixeira MD 05/13 Moxifloxacin HCL 00/ Hx Solution 0.5% [place], /0000 Glen Teixeira MD 04/03 Melatonin 00/00 Hx 12mg 1 tab at Unknown /0000 night - 05/13 Medications Administered in Office Medication Date Status Form Strength Qnty SIG Indications Ordering Provider Technetium TC Administered Injection Dustin S. 99M 017 DO Dustin Tetrofosmin, FACC Per Unit Dose Up To 40 Millicuries Influenza Administered Injection Unknown Virus Vaccine 013 Immunizations CPT Code Status Date Vaccine Lot # [id number] Given 05/29/2016 Hepatitis A Vaccine Adult Dosage [id number] 14615 Given 05/12/2016 Zoster (Zostavax) 98875 Given 01/21/2016 Fluzone High Dose 87994 Given 01/13/2015 Fluzone High Dose 88697 Given 07/23/2014 Pneumococcal Conjugate Vaccine 13 Valent For [id number] Intramuscular Use 43941 Given 01/22/2014 Flu Vaccine Split Virus Preservative Free For [id number] Indiv 3Yr Older 19011 Given 05/05/2009 Pneumonia Vaccine [id number] 15310 Given 05/05/2009 Influenza Virus 3Yrs & Over [id number] 80822 Given 07/06/2008 Tetanus And Diptheria (Td) For Adult Use [id number]-160 Preservative Free 37358 Given 01/02/2008 Influenza Virus 3Yrs & Over 47219 Given 02/05/2007 Influenza Virus 3Yrs & Over 34227 Given 02/05/2007 Influenza Virus 3Yrs & Over 94444 Given 06/03/2001 Pneumovax (History By Patient) 93822 Given 09/09/1997 Td (History By Patient) Vital [...] Test Date Test Result H/L Range Note Basic Metabolic Panel 04/04/2017 Sodium 140 mmol/L 133-145 Potassium 4.8 mmol/L 3.5-5.0 Chloride 104 mmol/L 101-111 Co2 Carbon Dioxide 30 mmol/L 22-32 Anion Gap 6 mmol/L 2-11 Glucose 99 mg/dL 70-100 Blood Urea Nitrogen 17 mg/dL 6-24 Creatinine 1.04 mg/dL High 0.51-0.95 BUN/Creatinine Ratio 16.3 8-20 Calcium 9.2 mg/dL 8.6-10.3 Egfr Non- 51.5 >60 Egfr 66.3 >60 1 Laboratory test finding 04/04/2017 Hemoglobin A1c (Glyco 5.9 % High 4.0- 5.6 2 HGB) Basic Metabolic Panel 03/19/2017 Sodium 138 mmol/L 133-145 Potassium 4.1 mmol/L 3.5-5.0 Chloride 105 mmol/L 101-111 Co2 Carbon Dioxide 26 mmol/L 22-32 Anion Gap 7 mmol/L 2-11 Glucose 117 mg/dL High 70-100 Blood Urea Nitrogen 22 mg/dL 6-24 Creatinine 1.00 mg/dL High 0.51-0.95 BUN/Creatinine Ratio 22.0 High 8-20 Calcium 9.1 mg/dL 8.6-10.3 Egfr Non- 53.9 >60 Egfr 69.3 >60 3 Laboratory test finding 03/16/2017 B-Type Natriuretic Peptide 365 pg/mL High 4 BNP Lipid Profile 08/11/2016 Triglycerides 156 mg/dL 5 (Trig/Chol/HDL) Cholesterol 172 mg/dL 6 HDL Cholesterol 54.0 mg/dL 7 LDL Cholesterol 87 mg/dL 8 Laboratory test finding 08/11/2016 TSH (Thyroid Stim [...] Egfr Non- 63.5 >60 Egfr 81.6 >60 9 CBC Auto Diff 05/04/2016 White Blood Count [...] finding 05/04/2016 CA 27-29 19.75 U/mL 3.5-38.6 10 Basic Metabolic Panel 02/03/2016 Sodium 138 mmol/L 133-145 Potassium 4.0 mmol/L 3.5-5.0 Chloride 103 mmol/L 101-111 Co2 Carbon Dioxide 28 mmol/L 22-32 Anion Gap 7 mmol/L 2-11 Glucose 96 mg/dL 70-100 Blood Urea Nitrogen 16 mg/dL 6-24 Calcium 9.6 mg/dL 8.6-10.3 Creatinine 0.93 mg/dL 0.51-0.95 BUN/Creatinine Ratio 17.2 8-20 Egfr Non- 58.8 >60 Egfr 75.6 >60 11 Lipid Profile (Trig/Chol/HDL) 07/22/2015 Triglycerides 193 mg/dL 12 Cholesterol 166 mg/dL 13 HDL Cholesterol 53.8 mg/dL 14 LDL Cholesterol 74 mg/dL 15 Laboratory test finding 07/22/2015 TSH (Thyroid Stim Horm) 1.01 ?IU/mL 0.34-5.60 Basic Metabolic Panel 01/14/2015 Sodium 138 mmol/L 133-145 Potassium 4.1 mmol/L 3.5-5.0 Chloride 104 mmol/L 101-111 Co2 Carbon Dioxide 27 mmol/L 22-32 Anion Gap 7 mmol/L 2-11 Glucose 77 mg/dL 70-100 Blood Urea Nitrogen 14 mg/dL 6-24 Creatinine 0.95 mg/dL 0.51-0.95 BUN/Creatinine Ratio 14.7 8-20 Calcium 9.4 mg/dL 8.6-10.3 Egfr Non- 57.5 >60 Egfr 74.0 >60 16 Lipid Profile (Trig/Chol/HDL) 07/01/2014 Triglycerides 157 mg/dL 17 Cholesterol 161 mg/dL 18 HDL Cholesterol 52.7 mg/dL 19 LDL Cholesterol 77 mg/dL 20 Laboratory test finding 07/01/2014 TSH (Thyroid Stimulating [...] Egfr Non- 60.6 >60 Egfr 77.9 >60 21 Laboratory test finding 12/29/2013 TSH (Thyroid Stimulating 0.18 IU/mL Low 0.34-5.60 Horm) Free T4 1.17 ng/mL High 0.61-1.12 Hemoglobin A1c 5.6 % Less than 6.0 22 CBC No Diff 12/29/2013 White Blood Count [...] finding 12/29/2013 CA 27-29 21.02 U/mL 3.5-38.6 23 Lipid Profile (Trig/Chol/HDL) 06/26/2013 Triglycerides 147 mg/dL 24, 25 Cholesterol 164 mg/dL 24, 26 HDL Cholesterol 45.8 mg/dL 24, 27 LDL Cholesterol 89 mg/dL 24, 28 CBC Auto Diff 02/24/2013 White Blood Count [...] test finding 02/24/2013 Pathologist Review (SEE NOTE) 29 CBC Auto Diff 02/12/2013 White Blood Count [...] Laboratory test finding 02/12/2013 Cell Morphology 1+ 30 CBC Auto Diff 01/29/2013 White Blood Count [...] Cell Morphology 01/29/2013 Macrocytosis 1+ Polychromasia 1+ CBC Auto Diff 01/01/2013 White [...] Abs Nucleated RBC 0.01 10^3/uL Manual Differential 01/01/2013 Neutrophil % 54 % 38-83 Band % 24 % High 0-8 Lymphocytes % 13 % Low 25-47 Monocytes % 7 % 0-13 Basophil % 1 % 0-2 Metamyelocytes % 1 % 0-2 Polychromasia 1+ CBC Auto Diff 12/18/2012 White Blood Count [...] Promyelocytes % 1 % Toxic Granulation 2+ Baldwin Cells 1+ Laboratory test finding 11/28/2012 Pathologist Review (SEE NOTE) 31 Oncology CBC Auto Diff 11/19/2012 White Blood [...] Egfr Non- 61.5 >60 Egfr 79.2 >60 32 CBC Auto Diff 10/11/2012 White Blood Count [...] Egfr Non- 61.7 >60 Egfr 79.4 >60 33 Laboratory test finding 10/11/2012 TSH (Thyroid 2.16 miu/mL 0.34-5.60 Stimulating Horm) Laboratory test finding 09/16/2012 Inr 0.76 Low 0.87-0.97 Activated Partial Thrombo Time 28.0 seconds 22.18-37.18 Cytology Non-Roll Sheeting Cutter 09/16/2012 Ira RUN DATE: 09/17/ <SEE 34 NOTE> Creatinine 09/05/2012 Creatinine 0.90 mg/dL 0.50-1.40 Egfr Non- 61.7 >60 Egfr 79.4 >60 35 Surgical Pathology 08/21/2012 S RUN DATE: <SEE NOTE> Lipid Profile 05/17/2012 Triglycerides 103 mg/dL 40-200 (Trig/Chol/HDL) Cholesterol 162 mg/dL Less than 200 HDL Cholesterol 50 mg/dL 40-60 37 Cholesterol/HDL Ratio 3.2 Average 1-4.44 LDL Cholesterol 91.4 mg/dL Less Than 100 38 Comp Metabolic Panel 05/17/2012 Sodium 139 mmol/L [...] Egfr Non- 61.7 >60 Egfr 79.4 >60 39 Laboratory test finding 05/17/2012 TSH (Thyroid Stimulating 3.18 miu/mL 0.34-5.60 Horm) Lipid Profile 05/09/2011 Triglyceride 153 mg/dL 40-200 (Trig/Chol/HDL) Cholesterol 203 mg/dL High Less Than 200 40 High Density Lipoprotein 50 mg/dL 40-60 41 Cholesterol/HDL Ratio 4.06 AVERAGE 1-4.44 Low Density Lipoprotein 122 mg/dL High Less Than 100 42 Comp Metabolic Panel 05/09/2011 Sodium 141 mmol/L 135-145 Potassium 4.3 mmol/L 3.5-5.0 Chloride 104 mmol/L 101-111 Co2 (Carbon Dioxide) 28.0 mmol/L 22-32 Anion Gap 9.0 mmol/L 2-11 43 Glucose 112 mg/dL High 70-100 BUN 14 mg/dL 6-24 Creatinine 1.2 mg/dL 0.50-1.40 One Over Creatinine 0.83 BUN/Creatinine Ratio 11.7 8-20 Calcium 9.3 mg/dL 8.1-9.9 Total Protein 6.8 GM/DL 6.2-8.1 Albumin 4.1 GM/DL 3.2-5.2 Globulin 2.7 GM/DL 2-4 Albumin/Globulin Ratio 1.5 1-3 Bilirubin Total 0.7 mg/dL 0.4-1.5 44 Alkaline Phosphatase 80 U/L 30-110 Alt (SGPT) 35 U/L 14-54 Ast (Sgot) 37 U/L 12-42 eGFR Non- 44.4 > 60 eGFR 57.1 > 60 45 Laboratory test finding 05/09/2011 CPK (Creatine Kinase) 386 U/L High 0- 170 TSH 1.51 MIU/ML 0.34-5.60 Thyroxine Free 0.90 ng/dL 0.61-1.24 Hemoglobin A1c 5.8 % Less Than 6.[address] Henson's Lab Panel 05/11/2010 TSH 2.16 MIU/ML 0.34-5.60 Comp Metabolic Panel 05/11/2010 Sodium 139 mmol/L 135-145 Potassium 4.5 mmol/L 3.5-5.0 Chloride 104 mmol/L 101-111 Co2 (Carbon Dioxide) 26.0 mmol/L 22-32 Anion Gap 9.0 mmol/L 2-11 47 Glucose 106 mg/dL High 70-100 BUN 10 mg/dL 6-24 Creatinine 1.00 mg/dL 0.50-1.40 One Over Creatinine 1.00 BUN/Creatinine Ratio 10.0 8-20 Calcium 9.4 mg/dL 8.1-9.9 Total Protein 6.9 GM/DL 6.2-8.1 Albumin 4.3 GM/DL 3.2-5.2 Globulin 2.6 GM/DL 2-4 Albumin/Globulin Ratio 1.7 1-3 Bilirubin Total 0.9 mg/dL 0.4-1.5 48 Alkaline Phosphatase 81 U/L 30-110 Alt (SGPT) 37 U/L 14-54 Ast (Sgot) 42 U/L 12-42 eGFR Non- 55.0 > 60 eGFR 70.7 > 60 49 Lipid Profile (Trig/Chol/HDL) 05/11/2010 Triglyceride 222 mg/dL High 40- 200 Cholesterol 189 mg/dL Less Than 200 50 High Density Lipoprotein 49 mg/dL 40-60 51 Cholesterol/HDL Ratio 3.86 AVERAGE 1-4.44 Low Density Lipoprotein 96 mg/dL Less Than 100 52 CBC With Electronic Diff 05/11/2010 White Blood [...] Hemoglobin A1c 5.9 % Less Than 6.[address] Henson's Lab Panel 05/06/2009 TSH 2.48 MIU/ML 0.34-5.60 Comp Metabolic Panel 05/06/2009 Sodium 141 mmol/L 135-145 Potassium 4.2 mmol/L 3.5-5.0 Chloride 107 mmol/L 101-111 Co2 (Carbon Dioxide) 28.0 mmol/L 22-32 Anion Gap 6.0 mmol/L 2-11 54 Glucose 102 mg/dL High 70-100 55 BUN 16 mg/dL 6-24 Creatinine 1.00 mg/dL 0.50-1.40 One Over Creatinine 1.00 BUN/Creatinine Ratio 16.0 8-20 Calcium 9.6 mg/dL 8.1-9.9 56 Total Protein 6.4 GM/DL 6.2-8.1 Albumin 3.9 GM/DL 3.2-5.2 Globulin 2.5 GM/DL 2-4 Albumin/Globulin Ratio 1.6 1-3 Bilirubin Total 0.7 mg/dL 0.4-1.5 57 Alkaline Phosphatase 73 U/L 30-110 Alt (SGPT) 26 U/L 14-54 Ast (Sgot) 29 U/L 12-42 eGFR Non- 58.6 > 60 eGFR 70.9 > 60 58 Lipid Profile (Trig/Chol/HDL) 05/06/2009 Triglyceride 143 mg/dL 40-200 Cholesterol 211 mg/dL High Less Than 200 59 High Density Lipoprotein 42 mg/dL 40-60 60 Cholesterol/HDL Ratio 5.02 AVERAGE High 1-4.44 Low Density Lipoprotein 140 mg/dL High Less Than 100 61 CBC With Electronic Diff 05/06/2009 White Blood [...] Free 05/06/2009 Free Thyroxine 0.77 NG/ML 0.61-1.24 62 Laboratory test 07/18/2008 BNP Evaluatr 89.0 pg/mL 0-100 63 finding Laboratory test 07/18/2008 D Dimer Quantitative < 200 < 230 63, 64 finding NG/ML CBC With Manual 07/18/2008 White Blood Count 13.1 CUMM High 4.8-10.8 63 Diff Stat Red Cell Count 4.71 CUMM 4.2-5.4 63 Hemoglobin 14.1 g/dL 12.0-16.0 63 Hematocrit 41 % 35-47 63 Mean Corpuscular Volume 87 um3 79-97 63 Mean Corpuscular Hemoglob 30 pg 27-31 63 Mean Corpuscular HGB Cone 35 g/dL 32-36 63 Redcell Distribution WDTH 14 % 10.5-15 63 Platelet Count 290 CUMM 150-450 63 Mean Platelet Volume 8.9 um3 7.4-10.4 63 Polysegmented Neutrophil 66 % 38-83 63 Band Neutrophil 1 % 0-8 63 Lymphocyte 26 % 25-47 63 Monocyte 4 % 0-13 63 Atypical Lymph 3 % 0-6 63 Absolute Neutrophil Count 8.7 63 RBC Morphology NORMAL 63 Comp Metabolic Panel 07/18/2008 Sodium 138 mmol/L 135-145 63 Potassium 3.6 mmol/L 3.5-5.0 63 Chloride 101 mmol/L 101-111 63 Co2 (Carbon Dioxide) 25.0 mmol/L 22-32 63 Anion Gap 12.0 mmol/L High 2-11 63, 65 Glucose 64 mg/dL Low 70-100 63, 66 BUN 8 mg/dL 6-24 63 Creatinine 0.70 mg/dL 0.50-1.40 63 One Over Creatinine 1.40 63 BUN/Creatinine Ratio 11.4 8-20 63 Calcium 8.8 mg/dL 8.1-9.9 63, 67 Total Protein 7.7 GM/DL 6.2-8.1 63 Albumin 4.5 GM/DL 3.2-5.2 63 Globulin 3.2 GM/DL 2-4 63 Albumin/Globulin Ratio 1.4 1-3 63 Bilirubin Total 0.7 mg/dL 0.4-1.5 63 Alkaline Phosphatase 92 U/L 30-110 63 Alt (SGPT) 44 U/L 14-54 63 Ast (Sgot) 46 U/L High 12-42 63 Laboratory test finding 07/18/2008 Troponin-I (TnI) 0.02 NG/ML 0-0.06 63 , 68 Thyroid Panel 07/18/2008 Free Thyroxine 0.88 NG/ML 0.61-1.24 63, 69 Thyroxine 7.4 g/dL 5-12 63 TSH 1.39 MIU/ML 0.34-5.60 63 CBC With Manual Diff 07/06/2008 White Blood [...] mmol/L 22-32 Anion Gap 9.0 mmol/L 2-11 70 Glucose 88 mg/dL 70-100 71 BUN 12 mg/dL 6-24 Creatinine 0.80 mg/dL 0.50-1.40 One Over Creatinine 1.20 BUN/Creatinine Ratio 15.0 8-20 Calcium 9.3 mg/dL 8.1-9.9 72 Total Protein 6.7 GM/DL 6.2-8.1 Albumin 4.0 GM/DL 3.2-5.2 Globulin 2.7 GM/DL 2-4 Albumin/Globulin Ratio 1.5 1-3 Bilirubin Total 1.0 mg/dL 0.4-1.5 Alkaline Phosphatase 88 U/L 30-110 Alt (SGPT) 44 U/L 14-54 Ast (Sgot) 42 U/L 12-42 Lipid Profile (Trig/Chol/HDL) 07/06/2008 Triglyceride 251 mg/dL High 40- 200 Cholesterol 201 mg/dL High Less Than 200 73 High Density Lipoprotein 43 mg/dL 40-60 74 Cholesterol/HDL Ratio 4.67 AVERAGE High 1-4.44 Low Density Lipoprotein 108 mg/dL High Less Than 100 75 Laboratory test finding 07/06/2008 TSH 2.43 MIU/ML 0.34-5.60 Laboratory test finding 07/24/2007 Free Thyroxine 0.73 NG/ML 0.61-1.24 76, 77 TSH 1.10 MIU/ML 0.34-5.60 76 Lipid Profile 06/19/2007 Cholesterol/HDL Ratio 4.23 AVERAGE 1-4.44 76 (Trig/Chol/HDL) Cholesterol 203 mg/dL High Less Than 200 76, 78 Triglyceride 217 mg/dL High 40-200 76 High Density Lipoprotein 48 mg/dL 40-60 76 Low Density Lipoprotein 112 mg/dL High Less Than 100 76, 79 CBC With Electronic Diff 06/03/2007 White Blood [...] Creatinine 1.11 Anion Gap 6.0 mmol/L 2-11 80 Albumin/Globulin Ratio 1.6 1-3 Albumin 4.2 GM/DL [...] 06/03/2007 TSH 0.31 MIU/ML Low 0.34-5.60 1 Because ethnic data is not always readily [...] 15-29 5 Kidney failure <15 (or dialysis) 2 Therapeutic target for the treatment of diabetes mellitus patients is <7% HBA1C, and in selective patients <6.0%. Please refer to [place] [employer] diabetic care guidelines for further information. 3 Because ethnic data is not always readily [...] 15-29 5 Kidney failure <15 (or dialysis) 4 >100 to <200 pg/mL: likely compensated congestive heart failure (CHF) 200 to 400 pg/mL: likely moderate CHF >400 pg/mL: likely moderate to severe CHF 5 Desirable <150 Borderline high 150-199 High 200-499 Very High >500 6 Desirable <200 Borderline high 200-239 High >239 7 Low <40 Desirable: 40-60 High: >60 8 Desirable: <100 mg/dL Near Optimal: 100-129 mg/dL Borderline High: 130-159 mg/dL High: 160-189 mg/dL Very High: >189 mg/dL 9 Because ethnic data is not always readily [...] 15-29 5 Kidney failure <15 (or dialysis) 10 Assay by Chemiluminescence microparticle immunoassay on the [employer]. Values obtained with different methods or kits cannot be used interchangeably for patient monitoring. Results cannot be interpreted as absolute evidence of the presence or absence of malignancy. The test is not interpretable in . 11 Because ethnic data is not always readily [...] 15-29 5 Kidney failure <15 (or dialysis) 12 Desirable <150 Borderline high 150-199 High 200-499 Very High >500 13 Desirable <200 Borderline high 200-239 High >239 14 Low <40 Desirable: 40-60 High: >60 15 Desirable: <100 mg/dL Near Optimal: 100-129 mg/dL Borderline High: 130-159 mg/dL High: 160-189 mg/dL Very High: >189 mg/dL 16 Because ethnic data is not always readily [...] 15-29 5 Kidney failure <15 (or dialysis) 17 Desirable <150 Borderline high 150-199 High 200-499 Very High >500 18 Desirable <200 Borderline high 200-239 High >239 19 Low <40 Desirable: 40-60 High: >60 20 Desirable: <100 mg/dL Near Optimal: 100-129 mg/dL Borderline High: 130-159 mg/dL High: 160-189 mg/dL Very High: >189 mg/dL 21 Because ethnic data is not always readily [...] 15-29 5 Kidney failure <15 (or dialysis) 22 Therapeutic target for the treatment of diabetes Mellitus patients is <7% HBA1C, and in selective patients <6.0%.Please refer to [place] [employer] Diabetic care guidelines for further information. 23 Assay by Chemiluminescence microparticle immunoassay on the [employer]. Values obtained with different methods or kits cannot be used interchangeably for patient monitoring. Results cannot be interpreted as absolute evidence of the presence or absence of malignancy. The test is not interpretable in . 24 FASTING 10 HOUR 25 Desirable <150 Borderline high 150-199 High 200-499 Very High >500 26 Desirable <200 Borderline high 200-239 High >239 27 Low <40 Desirable: 40-60 High: >60 28 Desirable <100 Near Optimal 100-129 Borderline high 130-159 High 160-189 Very High >189 29 CBC and smear reviewed. Leukocytosis and left shift noted. Findings most consistent with acute illness or infection. Normochromic normocytic anemia consistent with chronic disease or acute blood loss. REVIEWED BY RUDDY ESPINAL MD 30 @02/12/13 1301: Cell Morphology added. RFLXG=RBC MORPH. 31 REVIEWED BY RUDDY ESPINAL MD CBC and smear reviewed. Findings consistent with probable treatment effects. 32 Because ethnic data is not always readily [...] 15-29 5 Kidney failure <15 (or dialysis) 33 Because ethnic data is not always readily [...] 15-29 5 Kidney failure <15 (or dialysis) 34 RUN DATE: 09/17/12 [facility] LAB LIVE PAGE 1 RUN TIME: [address] [place], [place] [address] Specimen Inquiry Name: DEBBIE TREJO : [address]: Kristal Tan MD Acct: [id number] Unit: [id number] AGE: 71 Location: [facility] Re09/16/12 SEX: F Status: REG REF SPEC: [id number] STU: 09/16/12-[address] [facility] [address]: Kristal Tan MD REQ: [id number] RECD: 09/17/12-114 STATUS: ROXY TOMAS DR: Jonathan Henson III, MD _ ORDERED: FN ASP SUPERFIC FINAL DIAGNOSIS Right breast, fine needle aspirate: Benign- benign mammary epithelial elements in adipose tissue. No evidence of neoplasia is identified. 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 Bare bipolar nuclei are seen in the background as are numerous aggregates of benign adipose tissue. Correlation with clinical and imaging findings is suggested. BREAST RIGHT CLINICAL HISTORY Lesion right breast. GROSS DESCRIPTION 2 Alcohol fixed slide(s) received from clinician and Needle rinse in CytoLyt solution for thin layer non-vice president integrated test. Signed (signature on file) Ruddy Espnial MD [id number] END OF REPORT * ML=Testing performed at Main Lab DEPARTMENT OF PATHOLOGY, [address] [place] [id number] Ruddy Espinal M.D. Director [facility] Permit #[id number] 35 Because ethnic data is not always [...] 5 Kidney failure <15 (or dialysis) 36 RUN DATE: 08/27/12 [facility] LAB LIVE PAGE 1 RUN TIME: [address] [place] [id number] Specimen Inquiry Name: DEBBIE TREJO : [address]: Jonathan Henson III, MD Acct: [id number] Unit: [id number] AGE: 71 Location: [facility] Re08/21/12 SEX: F Status: REG REF SPEC: [id number] STU: 08/21/12- SUBM DR: Tyson Gr MD REQ: [id number] RECD: 08/21/12-1545 STATUS: ROXY TOMAS DR: Jonathan Henson III, [...] 3+, greater than 90% of tumor cells. VT Positive, 2-3+, 40% of tumor nuclei. The following immunohistochemical stains were performed at [facility] [employer] ([place], [place]) with appropriate controls and interpreted by [facility]: [id number] (Herceptest) Negative (0+). Addendum Signed (signature on file) Ruddy Espinal MD 1334 FINAL DIAGNOSIS Breast, left, core biopsies: A. 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 1. Size: 13.0 mm. maximal single measured span. 2. Tumor extent and distribution: Tumor involves all examined cores and occupies approximately 80% of total core volume. 3. Estimated King Grade: a. Estimated Tubule formation: 3. b. Estimated Nuclear Grade: 1. CONTINUED ON NEXT PAGE * ML=Testing performed at Main Lab DEPARTMENT OF PATHOLOGY, [facility] [employer] [place], [place] [address] Ruddy Espinal M.D. Director [facility] Permit #[id number] RUN DATE: 08/27/12 [facility] LAB LIVE PAGE 2 RUN TIME: 1334 [facility] [employer] [place], [place] [address] Specimen Inquiry Patient: DEBBIE TREJO [id number] (Continued) FINAL DIAGNOSIS (Continued) c. Estimated Mitotic Count: 1. Combine King Histologic Grade: 1/3 (5/9 points). 4. Lymphatic/vascular invasion: Not identified. 5. Perineural invasion: Positive. B. Ductal carcinoma in situ (DCIS): Not identified. C. ER/VT and Her2/Francesco by immunohistochemistry with appropriate controls: 1. ER: Pending. 2. VT: Pending. 3. Her2/Francesco: Pending. D. Microcalcifications: Not identified. E. Other findings: None. F. Predicted TNM Histopathologic Stage: At least dT1vHgMgo. COMMENTS: The tumor demonstrates a highly infiltrative [...] of this malignancy. Immunohistochemical stains for ER, VT, and Her2/Francesco are also pending. PRE-OPERATIVE DIAGNOSIS Shadowing mass left breast. GROSS DESCRIPTION The specimen is received in formalin labeled Debbie Cisneros, Left Breast Core Biopsy, and consists of multiple primarily floating house and yellow fibrofatty cores measuring 1.9 x 0.9 x 0.2 cm. in aggregate. Submitted entirely, one cassette. CONTINUED ON NEXT PAGE * ML=Testing performed at Main Lab DEPARTMENT OF PATHOLOGY, [facility] [employer] [place] [address] Ruddy Espinal M.D. Director [facility] Permit #[id number] RUN DATE: 08/27/12 [facility] LAB LIVE PAGE 3 RUN TIME: 1334 [facility] [employer] [place], [place] [address] Specimen Inquiry Patient: DEBBIE TREJO [id number] (Continued) GROSS DESCRIPTION (Continued) Signed (signature on file) Ruddy Espinal MD 1451 END OF REPORT * ML=Testing performed at Main Lab DEPARTMENT OF PATHOLOGY, [address] [place] [address] Ruddy Espinal M.D. Director [facility] Permit #[id number] 37 HDL Interpretation: Undesirable: High Risk: Less than 40 MG/DL Desirable: Low Risk: Greater than 60 MG/DL 38 LDL Interpretation: Low Risk Optimal Level: LDL Less than 100 MG/DL Near or Above Optimal: LDL 100-129 MG/DL Borderline High Risk: LDL 130-159 MG/DL High Risk: LDL 160-189 MG/DL Very High Risk: LDL Greater than 189 MG/DL 39 Because ethnic data is not always readily [...] 15-29 5 Kidney failure <15 (or dialysis) 40 CHOLESTEROL INTERPRETATION: Desirable: Less than 200 MG/DL Borderline-High Risk: 200-239 MG/DL High-Risk: 240 MG/DL and over 41 HDL INTERPRETATION: Undesirable: High Risk: Less than 40 MG/DL Desirable: Low Risk: Greater than 60 MG/DL 42 LDL INTERPRETATION: Low Risk Optimal Level: LDL Less than 100 MG/DL Near or Above Optimal: LDL 100-129 MG/DL Borderline High Risk: LDL 130-159 MG/DL High Risk: LDL 160-189 MG/DL Very High Risk: LDL Greater than 189 MG/DL 43 Anion gap measurement may be of limited value in the presence of any alkalosis, especially in a combined acid base disorder. . 44 A metabolite of Naproxen, O-desmethylnaproxen, has been shown to interfere with the Jendrassik-Alexey method for measuring total bilirubin. Samples from patients who have taken Naproxen have shown spurious elevation in total bilirubin levels. 45 Because ethnic data is not always readily [...] 15-29 5 Kidney failure <15 (or dialysis) 46 THERAPEUTIC TARGET FOR THE TREATMENT OF DIABETES MELLITUS PATIENTS IS <7% HBA1C, AND IN SELECTIVE PATIENTS <6.0%. PLEASE REFER TO [place] [employer] DIABETIC CARE GUIDELINES FOR FURTHER INFORMATION. 47 Anion gap measurement may be of limited value in the presence of any alkalosis, especially in a combined acid base disorder. . 48 A metabolite of Naproxen, O-desmethylnaproxen, has been shown to interfere with the Jendrassik-[place] method for measuring total bilirubin. Samples from patients who have taken Naproxen have shown spurious elevation in total bilirubin levels. 49 Because ethnic data is not always readily [...] 15-29 5 Kidney failure <15 (or dialysis) 50 CHOLESTEROL INTERPRETATION: Desirable: Less than 200 MG/DL Borderline-High Risk: 200-239 MG/DL High-Risk: 240 MG/DL and over 51 HDL INTERPRETATION: Undesirable: High Risk: Less than 40 MG/DL Desirable: Low Risk: Greater than 60 MG/DL 52 LDL INTERPRETATION: Low Risk Optimal Level: LDL Less than 100 MG/DL Near or Above Optimal: LDL 100-129 MG/DL Borderline High Risk: LDL 130-159 MG/DL High Risk: LDL 160-189 MG/DL Very High Risk: LDL Greater than 189 MG/DL 53 THERAPEUTIC TARGET FOR THE TREATMENT OF DIABETES MELLITUS PATIENTS IS <7% HBA1C, AND IN SELECTIVE PATIENTS <6.0%. PLEASE REFER TO [place] DIABETIC CARE GUIDELINES FOR FURTHER INFORMATION. 54 Anion gap measurement may be of limited value in the presence of any alkalosis, especially in a combined acid base disorder. . 55 Note change in reference range as of 11/21/07. The change was based on recommendations from the [place] [employer]. 56 Please note change in reference range effective 07 . 57 A metabolite of Naproxen, O-desmethylnaproxen, has been shown to interfere with the Jendrassik-Alexey method for measuring total bilirubin. Samples from patients who have taken Naproxen have shown spurious elevation in total bilirubin levels. 58 Because ethnic data is not always readily [...] 15-29 5 Kidney failure <15 (or dialysis) 59 CHOLESTEROL INTERPRETATION: Desirable: Less than 200 MG/DL Borderline-High Risk: 200-239 MG/DL High-Risk: 240 MG/DL and over 60 HDL INTERPRETATION: Undesirable: High Risk: Less than 40 MG/DL Desirable: Low Risk: Greater than 60 MG/DL 61 LDL INTERPRETATION: Low Risk Optimal Level: LDL Less than 100 MG/DL Near or Above Optimal: LDL 100-129 MG/DL Borderline High Risk: LDL 130-159 MG/DL High Risk: LDL 160-189 MG/DL Very High Risk: LDL Greater than 189 MG/DL 62 PLEASE NOTE NEW REFERENCE RANGES. 63 COMMENTS? BLOOD IN LAB 64 Please note: The following may produce a false positive D Dimer test: - Rheumatoid factor greater than 60 IU/ml - Plasma hemoglobin greater than 0.05 gm/dl - Bilirubin greater than 50 mg/dl - Lipids greater than 1000 mg/dl - FDP greater than 20 ug/ml . 65 Anion gap measurement may be of limited value in the presence of any alkalosis, especially in a combined acid base disorder. . 66 Note change in reference range as of 11/21/07. The change was based on recommendations from the [place] [employer]. 67 Please note change in reference range effective 07 . 68 New Reference Range and Interpretation effective 01/03/02 TnI (ng/ml) INTERPRETATION <0.06 ng/ml NOT SUPPORTIVE OF DIAGNOSIS OF MS 0.06 - 0.50 ng/ml INDETERMINATE: SUGGEST SERIAL STUDIES IF CLINICALLY INDICATED. > 0.5 ng/ml CONSISTENT WITH DIAGNOSIS OF MS . 69 PLEASE NOTE NEW REFERENCE RANGES. 70 Anion gap measurement may be of limited value in the presence of any alkalosis, especially in a combined acid base disorder. . 71 Note change in reference range as of 11/21/07. The change was based on recommendations from the [place] [employer]. 72 Please note change in reference range effective 07 . 73 CHOLESTEROL INTERPRETATION: Desirable: Less than 200 MG/DL Borderline-High Risk: 200-239 MG/DL High-Risk: 240 MG/DL and over 74 HDL INTERPRETATION: Undesirable: High Risk: Less than 40 MG/DL Desirable: Low Risk: Greater than 60 MG/DL 75 LDL INTERPRETATION: Low Risk Optimal Level: LDL Less than 100 MG/DL Near or Above Optimal: LDL 100-129 MG/DL Borderline High Risk: LDL 130-159 MG/DL High Risk: LDL 160-189 MG/DL Very High Risk: LDL Greater than 189 MG/DL 76 PATIENT MAY HAVE RESULTS PER DOCTOR'S AUTHORIZATION. Questions regarding this report should be directed to your doctor. 77 PLEASE NOTE NEW REFERENCE RANGES. 78 Classification: Borderline High . 79 CALCULATED LDL APPROXIMATES THE VALUE OF A DIRECT LDL MEASUREMENT. Classification: Near or above optimal . 80 Anion gap measurement may be of limited value in the presence of any alkalosis, especially in a combined acid base disorder. . Procedures Date CPT Code Description Status 07/06/2017 01355 Echocardiogram, Limited Study Completed 07/06/2017 40695 Echocardiogram, Limited Study Completed 06/27/2017 14251 EKG Tracing & Interpretation Completed 03/23/2017 65951 ECHO Transthoracic, Real-Time 2D With Doppler And Color Completed Flow 03/23/2017 57442 ECHO Transthoracic, Real-Time 2D With Doppler And Color Completed Flow 03/14/2017 62674 EKG Tracing & Interpretation Completed 02/28/2017 93434 Stress Test Completed 02/28/2017 74580 Myocardial Perfusion Imaging Tomographic (Spect) Completed Multiple Studies 02/20/2017 05314 EKG Tracing & Interpretation Completed 10/19/2016 Mammogram Completed 10/19/2016 Bone Mineral Density Test Completed 10/19/2015 Mammogram Completed 10/19/2015 Bone Mineral Density Test Completed 10/12/2014 Mammogram Completed 09/09/2014 Bone Mineral Density Test Completed 01/27/2014 Colonoscopy Completed 12/23/2012 65461 ECHO Transthorasic Realtime 2D W Doppler & Color Completed Flow Hosp 11/01/2012 92595 ECHO Transthorasic Realtime 2D W Doppler & Color Completed Flow [facility]osp 10/08/2012 Bone Mineral Density Test Completed 08/23/2012 Mammogram Completed 08/21/2012 Mammogram Completed 08/13/2012 Mammogram Completed 08/08/2011 Mammogram Completed 06/02/2011 44091 Noninvasive Ear Or Pulse Oximetry For Oxygen Saturation Completed 06/09/2010 Mammogram Completed 10/06/2009 Bone Mineral Density Test Completed 10/06/2009 Mammogram Completed 07/06/2008 11246 EKG Tracing & Interpretation Completed 06/24/2007 Colonoscopy Completed 04/04/2004 Colonoscopy Completed Encounters Type Date Location Provider CPT E/M Dx Office Visit 06/27/2017 [facility] [place] [address] I50.42 2:40p [facility] FACC Z01.810 I10 G47.9 C50.919 R73.01 J45.998 F17.201 Office Visit 06/18/2017 1:00p [facility] Sury Wyman M.D. 98635 M17.12 C.M.AAmadou M21.062 M25.562 M25.462 Office Visit 05/31/2017 12:00p [facility] [place] [address] R09.02 Services Of [facility] Office Visit 05/14/2017 1:00p [facility] [place] [address] G47.9 Services Of [facility] R09.02 Office Visit 04/25/2017 1:40p [facility] [place] [address] I42.9 [facility] FACC I10 C50.919 R73.01 Office Visit 03/28/2017 4:00p [facility] [place] [address] I42.9 [facility] FACC R73.01 I10 C50.919 Office Visit 03/14/2017 3:00p [facility] [place] [address] I42.9 [facility] FACC R06.02 I10 J45.909 C50.919 Office Visit 02/20/2017 2:20p [facility] Internal Medicine - Jonathan Henson, 41940 I10 Blessing Acosta E03.9 J45.909 R07.9 Office Visit 05/29/2016 2:30p [facility] Internal Medicine - Nurse Visit C 80817 Z23 Blessing Office Visit 02/16/2016 11:00a [facility] Dorman, 95153 M17.12 Laura Acosta M75.41 Office Visit 02/07/2016 11:20a [facility] Internal Medicine - Jonathan Henson, 20161 I10 Arrowmichelle Acosta E03.9 Z85.3 Office Visit 02/08/2015 3:00p [facility] Internal Medicine Jonathan Henson, 69933 J20.9 - [place] MStephanie Office Visit 01/14/2015 11:40a [facility] Internal Medicine Jonathan Henson, 09821 I10 - Lan Acosta E03.9 J45.909 Office Visit 11/24/2014 2:00p [facility] [place], 47423 726.61 Laura Acosta Office Visit 06/18/2014 2:40p [facility] Internal Medicine Jonathan Henson, 45097 373.31 - Lan MAmadouDAmadou Office Visit 05/28/2014 10:00a [facility] [place] [address] 782.9 - [place] 719.46 Office Visit 03/12/2014 4:00p [facility] Internal Medicine Jonathan Henson, 71344 719.46 - [place] M.DAmadou Office Visit 01/01/2014 11:00a [facility] Internal Medicine Jonathan Henson 26953 401.1 - [place] M.DAmadou 244.9 493.90 790.21 311 174.9 Office Visit 04/22/2013 10:00a [facility] Internal Medicine Jonathan Henson, 61790 726.19 - [place] M.Israel Office Visit 12/18/2012 10:20a [facility] Internal Medicine Jonathan Henson 21869 401.1 - [place] M.DAmadou 244.9 493.90 272.0 790.21 174.9 Office Visit 11/14/2011 10:00a [facility] Internal Medicine Jonathan Henson 83526 401.1 - [place] M.DAmadou 272.0 244.9 493.90 Office Visit 06/02/2011 10:40a [facility] Internal Medicine Jonathan Henson 80543 466.0 - [place] M.DAmadou Office Visit 05/16/2011 10:00a [facility] Replaced By [facility], 81571 V70.0 [facility] 401.1 244.9 272.0 493.90 790.21 311 Office Visit 05/11/2010 9:00a DO Not Use [facility] Replaced By [facility], 45319 V70.0 [facility] 401.1 354.0 244.9 493.90 272.0 790.21 311 Office Visit 11/08/2009 9:20a DO Not Use [facility] Replaced By [facility], 63754 401.1 [facility] 244.9 493.90 272.0 311 Office Visit 05/05/2009 1:40p DO Not Use [facility] At Replaced By [facility], 71377 401.1 [facility] 493.90 272.2 244.9 V04.81 V03.82 Office Visit 07/06/2008 9:00a [facility]placed [facility], 61475 493.90 [facility] 401.1 Office Visit 07/24/2007 10:00a [facility] Replaced By [facility], 95188 782.3 [facility].D. 401.1 Office Visit 07/08/2007 1:30p [facility] Replaced By [facility], 88195 719.44 [facility].D. Office Visit 06/03/2007 10:00a [facility] Replaced By [facility], 98476 244.9 [facility].D 493.90 401.1 Office Visit 11/28/2006 9:30a [facility] Replaced By [facility], 54077 477.9 [facility].D. 493.90 311 Plan of Care Future Appointment(s):08/08/2017 11:30 am - Sury Wyman M.D. at [facility]07/26/2017 9:30 am - Nixon Antonio PA-C at [facility]07/26/2017 9:30 am - SUDHA Hart at [facility]07/24/2017 1:20 pm - Jonathan Henson M.D. at [facility] Internal Medicine - Vayietabx54/26/2018 9:30 am - Sury Wyman M.D. at [facility]08/31/2017 11:30 am - Michelle Nix MD at [facility]07/13/2017 - Sury Wyman M.D.M25.462 Effusion, left kneeFollow up:Follow up: 2 weeks after vubwyxcS44.562 Pain in left kneeM17.12 Unilateral primary osteoarthritis, left knee
--- OUTSIDE RECORDS SUMMARY | 2017-07-26 09:33 | XMS REPORT ---
:1940 External Reference #:[id number] Author Organization [facility] Address [address] [address] Phone [phone] Care Team Providers Name Role Phone Jonathan Henson III, MD Primary Care Physician Unavailable Payers Type Date Identification Payment Subscriber Numbers Provider Health Maintenance Effective: Policy Number: Medicare Carlos Mitchell Se[employer] ([facility] [place] 04/02/2012 [id number] o [place] Group Number: [id number] [address] [address] PayID: [id number] MelletteVANESSA taylor [id number] Medigap Part B Expires: [facility] 04/01/2011 [id number] [facility] [place] PayID: [id number] [address] [place] [address] Medigap Part B Effective: 10/01/2007 Policy Number: Medicare Debbie Mitchell [id number] [place] Expires: 04/01/2011 PayID: [id number] [address] [place] [address] Problems Date Description Provider Status Onset: 05/16/2011 [...] General Cancer Father due to age 69 [place] () Mother Rheumatoid Arthritis Mother due to age 72 ? 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 Walks Allergies, [...] /2016 s mouth Chan, DO every day [facility] Prosthetic Bra 12/04 Active Misc Jonathan [...] 04/02 Prednisolone Hx Suspension 1% 4 drops Conley, Acetate /0000 per day Glen Teixeira MD [...] CPT Code Status Date Vaccine Lot # 52548 Given 05/29/2016 Hepatitis A Vaccine Adult Dosage [id number] 69755 Given 05/12/2016 Zoster (Zostavax) 74227 Given 01/21/2016 Fluzone High Dose 67462 Given 01/13/2015 Fluzone High Dose 49261 Given 07/23/2014 Pneumococcal Conjugate Vaccine 13 Valent For [id number] Intramuscular Use 39056 Given 01/22/2014 Flu Vaccine Split Virus Preservative Free For [id number] Indiv 3Yr Older 46978 Given 05/05/2009 Pneumonia Vaccine [id number] 94968 Given 05/05/2009 Influenza Virus 3Yrs & Over [id number] 39526 Given 07/06/2008 Tetanus And Diptheria (Td) For Adult Use TD-160 Preservative Free 11754 Given 01/02/2008 Influenza Virus 3Yrs & Over 61718 Given 02/05/2007 Influenza Virus 3Yrs & Over 97214 Given 02/05/2007 Influenza Virus 3Yrs & Over 63708 Given 06/03/2001 Pneumovax (History By Patient) 50816 Given 09/09/1997 Td (History By Patient) Vital Signs Date Vital Result Comment 06/27/2017 Height 63.25 inches 5'3.25" Weight 194.00 [...] Promyelocytes % 1 % Toxic Granulation 2+ [place] Cells 1+ Laboratory test finding 11/28/2012 Pathologist [...] Non- 61.5 >60 Egfr 79.2 >60 32 Laboratory test finding 10/11/2012 TSH (Thyroid Stimulating 2.16 miu/mL 0.34-5.60 Horm) Basic Metabolic Panel 10/11/2012 Sodium 138 mmol/L 133-145 Potassium 4.0 mmol/L 3.5-5.0 Chloride 98 mmol/L Low 101-111 Co2 Carbon Dioxide 32.0 mmol/L 22-32 Anion Gap 8.0 mmol/L 2-11 Glucose 100 mg/dL 70-100 Blood Urea Nitrogen 11 mg/dL 6-24 Creatinine 0.90 mg/dL 0.50-1.40 BUN/Creatinine Ratio 12.2 8-20 Calcium 9.9 mg/dL 8.1-9.9 Egfr Non- 61.7 >60 Egfr 79.4 >60 33 CBC Auto Diff 10/11/2012 White Blood Count [...] 0-2 Nucleated Red Blood Cells % 0 Cytology Non-Java Scala Developer 09/16/2012 Ira RUN DATE: 09/17/ <SEE 34 NOTE> Laboratory test finding 09/16/2012 Inr 0.76 Low [...] A1c 5.8 % Less Than 6.0 46 Laboratory test finding 05/11/2010 Hemoglobin A1c 5.9 % Less Than 6.0 47 Iron & Iron Binding 05/11/2010 Iron Total 90 g/dL 28-170 Capacity Unsaturated Iron Binding 319 g/dL Total Iron Binding Capacity 409 g/dL 250-450 % Iron Saturation 22 % 15-55 CBC With Electronic Diff 05/11/2010 White Blood [...] Eosinophils 0 0-0.6 Abs Basophils 0.1 0-0.2 Lipid Profile (Trig/Chol/HDL) 05/11/2010 Triglyceride 222 mg/dL High 40- 200 Cholesterol 189 mg/dL Less Than 200 48 High Density Lipoprotein 49 mg/dL 40-60 49 Cholesterol/HDL Ratio 3.86 AVERAGE 1-4.44 Low Density Lipoprotein 96 mg/dL Less Than 100 50 Comp Metabolic Panel 05/11/2010 Sodium 139 mmol/L 135-145 Potassium 4.5 mmol/L 3.5-5.0 Chloride 104 mmol/L 101-111 Co2 (Carbon Dioxide) 26.0 mmol/L 22-32 Anion Gap 9.0 mmol/L 2-11 51 Glucose 106 mg/dL High 70-100 BUN 10 mg/dL 6-24 Creatinine 1.00 mg/dL 0.50-1.40 One Over Creatinine 1.00 BUN/Creatinine Ratio 10.0 8-20 Calcium 9.4 mg/dL 8.1-9.9 Total Protein 6.9 GM/DL 6.2-8.1 Albumin 4.3 GM/DL 3.2-5.2 Globulin 2.6 GM/DL 2-4 Albumin/Globulin Ratio 1.7 1-3 Bilirubin Total 0.9 mg/dL 0.4-1.5 52 Alkaline Phosphatase 81 U/L 30-110 Alt (SGPT) 37 U/L 14-54 Ast (Sgot) 42 U/L 12-42 eGFR Non- 55.0 > 60 eGFR 70.7 > [address] Henson's Lab Panel 05/11/2010 TSH 2.16 MIU/ML 0.34-5.60 DR Henson's Lab Panel 05/06/2009 TSH 2.48 [...] 0.77 NG/ML 0.61-1.24 62 Laboratory test 07/18/2008 D Dimer Quantitative < [...] 5-12 63 TSH 1.39 MIU/ML 0.34-5.60 63 Laboratory test finding 07/18/2008 BNP Evaluatr 89.0 pg/mL 0-100 63 Laboratory test finding 07/06/2008 TSH 2.43 MIU/ML 0.34-5.60 Lipid Profile (Trig/Chol/HDL) 07/06/2008 Triglyceride 251 mg/dL High 40- 200 Cholesterol 201 mg/dL High Less Than 200 70 High Density Lipoprotein 43 mg/dL 40-60 71 Cholesterol/HDL Ratio 4.67 AVERAGE High 1-4.44 Low Density Lipoprotein 108 mg/dL High Less Than 100 72 Comp Metabolic Panel 07/06/2008 Sodium 138 mmol/L [...] U/L 14-54 Ast (Sgot) 42 U/L 12-42 CBC With Manual Diff 07/06/2008 White Blood [...] 0-2 Absolute Neutrophil Count 5.0 Anisocytosis SLIGHT Laboratory test finding 07/24/2007 Free Thyroxine 0.73 [...] in selective patients <6.0%. Please refer to [place] [employer] diabetic care guidelines for further [...] Assay by Chemiluminescence microparticle immunoassay on the Triparazziaur. Values obtained with different methods or kits [...] and in selective patients <6.0%.Please refer to [place] [employer] Diabetic care guidelines for further [...] <15 (or dialysis) 34 RUN DATE: 09/17/12 [facility] LAB LIVE PAGE 1 RUN TIME: [address] [place] [address] Specimen Inquiry Name: DEBBIE TREJO : [address]: Kristal Tan MD Acct: [id number] Unit: [id number] AGE: 71 Location: [facility] Re09/16/12 SEX: F Status: REG REF SPEC: [id number] STU: 09/16/12-[address]: Kristal Tan MD REQ: [id number] RECD: 09/17/12-1141 STATUS: ROXY TOMAS DR: Jonathan Henson III, MD _ ORDERED: FN ASP SUPERFIC FINAL DIAGNOSIS Right breast, fine needle aspirate: Benign- benign mammary epithelial elements in adipose tissue. No evidence of neoplasia is identified. COMMENTS: The aspirate smears are moderately cellular and demonstrate several cohesive cloud services architect benign appearing mammary epithelial groups with associated myoepithelial cells. Bare bipolar nuclei are seen in the background as are numerous aggregates of benign adipose tissue. Correlation with clinical and imaging findings is suggested. BREAST RIGHT CLINICAL HISTORY Lesion right breast. GROSS DESCRIPTION 2 Alcohol fixed slide(s) received from clinician and Needle rinse in CytoLyt solution for thin layer non-resident care manager rn test. Signed (signature on file) Ruddy Espinal MD 1519 END OF REPORT * ML=Testing performed at Main Lab DEPARTMENT OF PATHOLOGY, [address] [place] [address] Rudyd Espinal M.D. Director [facility] Permit #[id number] 35 Because ethnic data is not always [...] <15 (or dialysis) 36 RUN DATE: 08/27/12 [facility] LAB LIVE PAGE 1 RUN TIME: 7827 [address] [place], [place] [address] Specimen Inquiry Name: DEBBIE TREJO : [address]: Jonathan Henson III, MD Acct: [id number] Unit: [id number] AGE: [address] Location: [facility] Re08/21/12 SEX: F Status: REG REF SPEC: [id number] STU: 08/21/12- SUBM DR: Tyson Gr MD REQ: [id number] RECD: 08/21/12-1545 STATUS: ROXY TOMAS DR: Jonathan [...] 3+, greater than 90% of tumor cells. SC Positive, 2-3+, 40% of tumor nuclei. The following immunohistochemical stains were performed at [facility] ([place], [place]) with appropriate controls and interpreted by [facility]: [id number] (Herceptest) Negative (0+). Addendum Signed (signature on file) Ruddy Espinal MD 1334 FINAL DIAGNOSIS Breast, left, core biopsies: A. 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 1. Size: 13.0 mm. maximal single measured span. 2. Tumor extent and distribution: Tumor involves all examined cores and occupies approximately 80% of total core volume. 3. Estimated Cedrick Grade: a. Estimated Tubule formation: 3. b. Estimated Nuclear Grade: 1. CONTINUED ON NEXT PAGE * ML=Testing performed at Main Lab DEPARTMENT OF PATHOLOGY, [address] [place], [place] [address] Ruddy Espinal M.D. Director [facility] Permit #[id number] RUN DATE: 08/27/12 [facility] LAB LIVE PAGE 2 RUN TIME: [address] [place] [address] Specimen Inquiry Patient: DEBBIE TREJO [id number] (Continued) FINAL DIAGNOSIS (Continued) c. Estimated Mitotic Count: 1. Combine [place] Histologic Grade: 1/3 (5/9 points). 4. Lymphatic/vascular invasion: Not identified. 5. Perineural invasion: Positive. B. Ductal carcinoma in situ (DCIS): Not identified. C. ER/SC and Her2/Francesco by immunohistochemistry with appropriate controls: 1. ER: Pending. 2. SC: Pending. 3. Her2/Francesco: Pending. D. Microcalcifications: Not identified. E. Other findings: None. F. Predicted TNM Histopathologic Stage: At least [id number]. COMMENTS: The tumor demonstrates a highly infiltrative [...] of this malignancy. Immunohistochemical stains for ER, SC, and Her2/Francesco are also pending. PRE-OPERATIVE DIAGNOSIS Shadowing mass left breast. GROSS DESCRIPTION The specimen is received in formalin labeled Debbie Cisneros, Left Breast Core Biopsy, and consists of multiple primarily floating house and yellow fibrofatty cores measuring 1.9 x 0.9 x 0.2 cm. in aggregate. Submitted entirely, one cassette. CONTINUED ON NEXT PAGE * ML=Testing performed at Main Lab DEPARTMENT OF PATHOLOGY, [facility] [employer] [place] [address] Ruddy Espinal M.D. Director [facility] Permit #[id number] RUN DATE: 08/27/12 [facility] LAB LIVE PAGE 3 RUN TIME: 8924 [facility] [place] [employer] [place], [place] [address] Specimen Inquiry Patient: DEBBIE TREJO [id number] (Continued) GROSS DESCRIPTION (Continued) Signed (signature on file) Ruddy Esipnal MD 1451 END OF REPORT * ML=Testing performed at Main Lab DEPARTMENT OF PATHOLOGY, [address] [place] [address] Ruddy Espinal M.D. Director [facility] Permit #[id number] 37 HDL Interpretation: Undesirable: High Risk: Less [...] has been shown to interfere with the [employer] method for measuring total bilirubin. Samples from [...] IN SELECTIVE PATIENTS <6.0%. PLEASE REFER TO [place] [employer] DIABETIC CARE GUIDELINES FOR FURTHER INFORMATION. 47 THERAPEUTIC TARGET FOR THE TREATMENT OF DIABETES MELLITUS PATIENTS IS <7% HBA1C, AND IN SELECTIVE PATIENTS <6.0%. PLEASE REFER TO [place] [employer] DIABETIC CARE GUIDELINES FOR FURTHER INFORMATION. 48 CHOLESTEROL INTERPRETATION: Desirable: Less than 200 MG/DL Borderline-High Risk: 200-239 MG/DL High-Risk: 240 MG/DL and over 49 HDL INTERPRETATION: Undesirable: High Risk: Less than 40 MG/DL Desirable: Low Risk: Greater than 60 MG/DL 50 LDL INTERPRETATION: Low Risk Optimal Level: LDL Less than 100 MG/DL Near or Above Optimal: LDL 100-129 MG/DL Borderline High Risk: LDL 130-159 MG/DL High Risk: LDL 160-189 MG/DL Very High Risk: LDL Greater than 189 MG/DL 51 Anion gap measurement may be of limited value in the presence of any alkalosis, especially in a combined acid base disorder. . 52 A metabolite of Naproxen, O-desmethylnaproxen, has been shown to interfere with the Jendrassik-Alexey method for measuring total bilirubin. Samples from patients who have taken Naproxen have shown spurious elevation in total bilirubin levels. 53 Because ethnic data is not always readily [...] 15-29 5 Kidney failure <15 (or dialysis) 54 Anion gap measurement may be of limited value in the presence of any alkalosis, especially in a combined acid base disorder. . 55 Note change in reference range as of 11/21/07. The change was based on recommendations from the [place] [employer]. 56 Please note change in reference range effective 07 . 57 A metabolite of Naproxen, O-desmethylnaproxen, has been shown to interfere with the [employer] method for measuring total bilirubin. Samples from [...] change was based on recommendations from the [place] [employer]. 67 Please note change in reference range effective 07 . 68 New Reference Range and Interpretation effective 01/03/02 TnI (ng/ml) INTERPRETATION <0.06 ng/ml NOT SUPPORTIVE OF DIAGNOSIS OF [place] 0.06 - 0.50 ng/ml INDETERMINATE: SUGGEST SERIAL STUDIES IF CLINICALLY INDICATED. > 0.5 ng/ml CONSISTENT WITH DIAGNOSIS OF [place] . 69 PLEASE NOTE NEW REFERENCE RANGES. 70 CHOLESTEROL INTERPRETATION: Desirable: Less than 200 MG/DL Borderline-High Risk: 200-239 MG/DL High-Risk: 240 MG/DL and over 71 HDL INTERPRETATION: Undesirable: High Risk: Less than 40 MG/DL Desirable: Low Risk: Greater than 60 MG/DL 72 LDL INTERPRETATION: Low Risk Optimal Level: LDL Less than 100 MG/DL Near or Above Optimal: LDL 100-129 MG/DL Borderline High Risk: LDL 130-159 MG/DL High Risk: LDL 160-189 MG/DL Very High Risk: LDL Greater than 189 MG/DL 73 Anion gap measurement may be of limited value in the presence of any alkalosis, especially in a combined acid base disorder. . 74 Note change in reference range as of 11/21/07. The change was based on recommendations from the [place] [employer]. 75 Please note change in reference range effective 07 . 76 PATIENT MAY HAVE RESULTS PER DOCTOR'S [...] . Procedures Date CPT Code Description Status 06/27/2017 31132 EKG Tracing & Interpretation Completed 03/23/2017 40017 ECHO Transthoracic, Real-Time 2D With Doppler And Color Completed Flow 03/23/2017 31647 ECHO Transthoracic, Real-Time 2D With Doppler And Color Completed Flow 03/14/2017 15352 EKG Tracing & Interpretation Completed 02/28/2017 50229 Stress Test Completed 02/28/2017 82316 Myocardial Perfusion Imaging Tomographic (Spect) Completed Multiple Studies 02/20/2017 67578 EKG Tracing & Interpretation Completed 10/19/2016 Mammogram Completed 10/19/2016 Bone Mineral Density Test Completed 10/19/2015 Mammogram Completed 10/19/2015 Bone Mineral Density Test Completed 10/12/2014 Mammogram Completed 09/09/2014 Bone Mineral Density Test Completed 01/27/2014 Colonoscopy Completed 12/23/2012 77839 ECHO Transthorasic Realtime 2D W Doppler & Color Completed Flow Hosp 11/01/2012 75796 ECHO Transthorasic Realtime 2D W Doppler & Color Completed Flow Hosp 10/08/2012 Bone Mineral Density Test Completed 08/23/2012 Mammogram Completed 08/21/2012 Mammogram Completed 08/13/2012 Mammogram Completed 08/08/2011 Mammogram Completed 06/02/2011 36767 Noninvasive Ear Or Pulse Oximetry For Oxygen Saturation Completed 06/09/2010 Mammogram Completed 10/06/2009 Mammogram Completed 10/06/2009 Bone Mineral Density Test Completed 07/06/2008 64708 EKG Tracing & Interpretation Completed 06/24/2007 Colonoscopy Completed 04/04/2004 Colonoscopy Completed Encounters Type Date Location Provider CPT E/M Dx Office Visit 06/18/2017 [facility] M.[facility]. 59371 M17.12 1:00p C.MGómez M21.062 M25.562 M25.462 Office Visit 05/31/2017 12:00p [facility] [address] R09.02 [facility] Office Visit 05/14/2017 1:00p [facility] [address] G47.9 [facility] R09.02 Office Visit 04/25/2017 1:40p [facility] [place] [address] I42.9 [facility] FACC I10 C50.919 R73.01 Office Visit 03/28/2017 4:00p [facility] [place] [address] I42.9 [facility] FACC R73.01 I10 C50.919 Office Visit 03/14/2017 3:00p [facility] [place] [address] I42.9 [facility] FACC R06.02 I10 J45.909 C50.919 Office Visit 02/20/2017 2:20p [facility] Internal Medicine - Jonathan Henson, 73429 I10 Blessing Acosta E03.9 J45.909 R07.9 Office Visit 05/29/2016 2:30p [facility] Internal Medicine - Nurse Visit C 19745 Z23 [place] Office Visit 02/16/2016 11:00a [facility], 44173 M17.12 Laura Acosta M75.41 Office Visit 02/07/2016 11:20a [facility] Internal Medicine - Jonathan Henson, 67037 I10 Blessing Acosta E03.9 Z85.3 Office Visit 02/08/2015 3:00p [facility] Internal Medicine Jonathan Henson, 77201 J20.9 - Lan Acosta Office Visit 01/14/2015 11:40a [facility] Internal Medicine Jonathan Henson, 44414 I10 - Lan Acosta E03.9 J45.909 Office Visit 11/24/2014 2:00p [facility], 37095 726.61 C.MGómez Acosta Office Visit 06/18/2014 2:40p [facility] Internal Medicine Jonathan Henson, 85161 373.31 - [place] M.D. Office Visit 05/28/2014 10:00a [facility] Internal Medicine Maurisio Andres, MEDIEVAL ENGLISH LITERATURE PROFESSOR 62405 782.9 - [place] 719.46 Office Visit 03/12/2014 4:00p [facility] Internal Medicine Jonathan Henson, 55143 719.46 - [place] M.D. Office Visit 01/01/2014 11:00a [facility] Internal Medicine Jonathan Henson, 12044 401.1 - [place] M.DAmadou 244.9 493.90 790.21 311 174.9 Office Visit 04/22/2013 10:00a [facility] Internal Medicine Jonathan Henson, 97942 726.19 - [place] M.DAmadou Office Visit 12/18/2012 10:20a [facility] Internal Medicine Jonathan Henson, 67837 401.1 - [place] M.DAmadou 244.9 493.90 272.0 790.21 174.9 Office Visit 11/14/2011 10:00a [facility] Internal Medicine Jonathan Henson 90660 401.1 - [place] M.D. 272.0 244.9 493.90 Office Visit 06/02/2011 10:40a [facility] Internal Medicine Jonathan Henson, 95322 466.0 - [place] M.DAmadou Office Visit 05/16/2011 10:00a [facility] Internal Medicine Jonathan Henson, 09000 V70.0 - [place] M.DAmadou 401.1 244.9 272.0 493.90 790.21 311 Office Visit 05/11/2010 9:00a DO Not Use [employer] At Jonathan Henson, 56220 V70.0 Venkat Sandoval.[place] 401.1 354.0 244.9 493.90 272.0 790.21 311 Office Visit 11/08/2009 9:20a DO Not Use [employer] At Jonathan Henson, 81913 401.1 Venkat Sandoval.[place] 244.9 493.90 272.0 311 Office Visit 05/05/2009 1:40p DO Not Use Stationary [facility]man At [facility], 15179 401.1 [facility] 493.90 272.2 244.9 V04.81 V03.82 Office Visit 07/06/2008 9:00a [facility], 09572 493.90 [facility] V06.5 401.1 Office Visit 07/24/2007 10:00a [facility], 67109 782.3 [facility] 401.1 Office Visit 07/08/2007 1:30p [facility], 76440 719.44 [facility] Office Visit 06/03/2007 10:00a [facility], 32058 244.9 [facility] 493.90 401.1 Office Visit 11/28/2006 9:30a [facility], 51138 477.9 [facility] 493.90 311 Plan of Care Future Appointment(s):07/06/2017 1:00 pm - Ica ECHO Schedule at [facility]07/26/2017 9:30 am - Nixon Antonio PA-C at [facility]07/26/2017 9:30 am - SUDHA Hart at [facility]07/24/2017 1:20 pm - Jonathan Henson M.D. at [facility] Internal Medicine - Dykjtmosr35/26/2018 9:30 am - Sury Wyman M.D. at [facility]07/13/2017 9:30 am - Sury Wyman M.D. at [facility]08/31/2017 11:30 am - Michelle Nix MD at [facility]06/27/2017 - Dustin Chan DO FACCI50.42 Chronic combined systolic and diastolic hrt failNew Therapy:Cardiac RehabFollow up: Please move up limited echo that was previously planned for around September to before patients surgery on July 26. f/u 6 months (cancel any other follow up plans)Z01.810 Encounter for preprocedural cardiovascular examination
[2017-07-26] MEDS ORDERED: Dexamethasone IV* 4 MG/ML 1 ML (4 MG) ONE (09:44)
[2017-07-26] MEDS ORDERED: ceFAZolin 2 GM PREMIX (*) 2 GM/50 ML BAG IVPB ONE (09:45)
[2017-07-26] MEDS ORDERED: Famotidine TAB* 20 MG ONE (09:45)
[2017-07-26] MEDS ORDERED: Bisacodyl SUPP* 10 MG SUPP PR PRN (11:21)
[2017-07-26] MEDS ORDERED: diPHENhydraMINE IV* 50 MG/ML 1 ml VIAL (BENADRYL) IV PRN (11:21)
[2017-07-26] MEDS ORDERED: Magnesium Hydroxide LIQ* 30 ML UDC PO PRN (11:21)
[2017-07-26] MEDS ORDERED: Cyclobenzaprine TAB* 10 MG PO PRN (11:21)
[2017-07-26] MEDS ORDERED: fentaNYL* 50 MCG/ML 2 ML VIAL (100 MCG VIAL) ONE (11:51)
[2017-07-26] MEDS ORDERED: Midazolam* 1 MG/ML 5 ML VIAL (5 MG) ONE (11:51)
[2017-07-26] MEDS ORDERED: Bupivacaine 0.5% PF 10 ML VIAL INJ ONE ×2 (12:03→13:55)
[2017-07-26] MEDS ORDERED: Propofol* 10 MG/ML 20 ML BTL IV PUSH ONE ×2 (12:46→14:11)
[2017-07-26] MEDS ORDERED: Lidocaine 2% PF * 5 ML VIAL ONE (12:46)
[2017-07-26] MEDS ORDERED: Dexmedetomidine* 200 MCG/2 ML 2 ML VIAL ONE (12:48)
[2017-07-26] MEDS ORDERED: oxyCODONE TAB* 5 MG TAB PO PRN ×2 (13:31→13:34)
[2017-07-26] MEDS ORDERED: PROCHLORPERAZINE INJ 5 MG/ML 2 ML VIAL IV PRN (13:31)
[2017-07-26] MEDS ORDERED: Acetaminophen IV 1GM/100ML * 1,000 MG/100 ML VIAL IVPB ONE (13:31)
[2017-07-26] MEDS ORDERED: Naloxone* 0.4 MG/ML 1 ML VIAL IV PRN (13:31)
[2017-07-26] MEDS ORDERED: fentaNYL* 50 MCG/ML 2 ML VIAL (100 MCG VIAL) IV PRN (13:31)
[2017-07-26] MEDS ORDERED: EPHEDrine (Pressors)* 50 MG/ML VIAL IV PUSH PRN (13:34)
[2017-07-26] MEDS ORDERED: Nalbuphine* 20 MG/ML 1 ML VIAL IV PRN (13:34)
[2017-07-26] MEDS ORDERED: Scopolamine 1.5 mg* PATCH TRANSDERM PRN (13:34)
[2017-07-26] MEDS ORDERED: Ondansetron INJ* 2 MG/ML VIAL IV PRN (13:34)
[2017-07-26] MEDS ORDERED: Bupivacaine 0.25% SDV* 30 ML ONE (13:56)
[2017-07-26] MEDS ORDERED: Ropivacaine* 300 MG in NS 0.9% 250 ML* 240 ML EPIDURAL SCH (14:00)
[2017-07-26] MEDS ORDERED: Acetaminophen IV 1GM/100ML * 100 ML ONE (15:04)
[2017-07-26] MEDS: Acetaminophen TAB* 325 MG PO SCH ×2 (15:07→22:25)
[2017-07-26] MEDS ORDERED: celeCOXIB CAP* 100 MG ONE ×2 (15:27→15:30)
[2017-07-26] MEDS: celeCOXIB CAP* 200 MG PO SCH ×2 (15:34→22:27)
--- NOTE | 2017-07-26 15:45 | RAD ---
INDICATION: Status post total left knee replacement surgery. TECHNIQUE: 2 views of the left knee were obtained. FINDINGS: The patient is status post total left knee replacement surgery. The bones and prostheses are in normal alignment. There is air within the anterior soft tissues consistent with the patient's recent surgery. IMPRESSION: STATUS POST TOTAL LEFT KNEE REPLACEMENT SURGERY.
[2017-07-26] MEDS ORDERED: oxyCODONE TAB* 5 MG TAB ONE (19:40)
[2017-07-26] MEDS ORDERED: Warfarin TAB(*) 6 MG PO ONE (21:00)
[2017-07-26] MEDS: ceFAZolin 1 GM in Dextrose (*) 1 GM/50 ML BAG IVPB SCH (22:07)
[2017-07-26] MEDS: Magnesium Hydroxide LIQ* 30 ML UDC PO SCH (22:10)
[2017-07-26] MEDS: Docusate CAP* 100 MG PO SCH (22:28)
[2017-07-26] MEDS ORDERED: Morphine VIAL* 4 MG/ML VIAL (1 ml vial) IV PRN (22:54)
[2017-07-27] MEDS: ceFAZolin 1 GM in Dextrose (*) 1 GM/50 ML BAG IVPB SCH ×2 (05:28→12:27)
[2017-07-27] MEDS: Acetaminophen TAB* 325 MG PO SCH (05:30)
[2017-07-27] MEDS ORDERED: Ondansetron INJ* 2 MG/ML VIAL IV PRN (06:00)
[2017-07-27] MEDS ORDERED: Acetaminophen TAB* 325 MG PO PRN (06:00)
[2017-07-27] MEDS ORDERED: oxyCODONE/Acetamin 5/325 MG* TAB PO PRN (06:00)
[2017-07-27 06:28] LABS: Hematocrit 32 % (35-47); Hemoglobin 11.1 g/dl (12.0-16.0); Mean Platelet Volume 8.5 um3 (7.4-10.4); Platelet Count 217 10^3/ul (150-450)
[2017-07-27 06:34] LABS: INR 0.98 (0.77-1.02)
[2017-07-27 06:46] LABS: EGFR Non-African American 63.3 (>60)
[2017-07-27] MEDS: oxyCODONE TAB* 5 MG TAB PO PRN ×3 (07:29→18:49)
[2017-07-27] MEDS: Morphine VIAL* 4 MG/ML VIAL (1 ml vial) IV PRN ×2 (08:11→23:40)
[2017-07-27] MEDS: Vitamin THERAPEUTIC TAB PO SCH (08:12)
[2017-07-27] MEDS: Docusate CAP* 100 MG PO SCH ×2 (08:12→21:50)
[2017-07-27] MEDS: Magnesium Hydroxide LIQ* 30 ML UDC PO SCH ×2 (08:17→21:50)
--- NOTE | 2017-07-27 08:27 | PN ---
Progress Note - Progress Note Date of Service: 07/27/17 SOAP: Subjective: 76 y/o female s/p L TKA by Dr. Wyman 07/26. Patient reports having pain, mildly controlled with pain medications. WOrking with PT h,owever slowly. SIster at bedside VSS, afebrile overnight. Objective: General- Well appearing, NAD, AO Sitting in chair comfortably MSK- LLE- DF/PF = b/l, PT 2+, negative homans sign Surgical dressing intact, no drainage noted, no induration above or below wound. Vital Signs Temp 97.6 F 07/27/17 07:39 Pulse 62 07/27/17 07:39 Resp 16 07/27/17 08:11 BP 105/48 07/27/17 07:39 Pulse Ox 95 07/27/17 07:39 Intake & Output 07/26/17 07/27/17 07/27/17 18:59 06:59 18:59 Intake Total 1050 1143 Output Total 900 1250 150 Balance 150 -107 -150 Weight 87.362 kg Intake: IV Fluids 1050 643 ABX - CEFAZOLIN 54 LR 1000 589 NS 100ML, Cefazolin 2G 50 Oral 500 Output: Urine 0 150 Carmona 850 1250 Estimated Blood Loss 50 Assessment: Stable 76 y/o female s/p L TKA by Dr. Wyman 07/26. Plan: - DVT prophylaxis- lovenox, coumadin 6mg tonight. - Continue PT/OT - Follow up with Dr. Wyman within 10-14 days - H&H - stable - post-op IV ABX - COmpleted. - Continue pain medication, may need to increase if not adequate. Acetaminophen (Tylenol Tab*) 650 mg PO Q4H PRN PRN Reason: PAIN OR TEMPERATURE Albuterol (Ventolin Hfa Inhaler*) 1 puff INH Q4H PRN PRN Reason: ASTHMA EXACERBATION Anastrozole (Arimidex (Nf)) 1 mg PO QAM JUAN Aspirin (Aspirin Ec Tab*) 81 mg PO QAM JUAN Bisacodyl (Dulcolax Supp*) 10 mg MA DAILY PRN PRN Reason: constipation Bupropion HCl (Bupropion Xl*) 300 mg PO DAILY JUAN Carvedilol (Coreg Tab*) 12.5 mg PO BID JUAN Cyclobenzaprine HCl (Flexeril Tab*) 10 mg PO TID PRN PRN Reason: SPASMS Last Admin: 07/27/17 15:05 Dose: 10 mg Diphenhydramine HCl (Benadryl Iv*) 25 mg IV Q6H PRN PRN Reason: itching Diphenhydramine HCl (Benadryl Po*) 25 mg PO BID [facility] Docusate Sodium (Colace Cap*) 100 mg PO BID [facility] Last Admin: 07/27/17 08:12 Dose: 100 mg Enoxaparin Sodium (Lovenox(*)) 30 mg SUBCUT Q24H [facility] Last Admin: 07/27/17 12:28 Dose: 30 mg Ephedrine Sulfate (Ephedrine Sulfate (Pressors)*) 5 mg IV PUSH Q5M PRN PRN Reason: HYPOTENSION Fluticasone/Vilanterol (Breo Ellipta Mdi 200/25(Nf)) 1 puff INH DAILY [facility] Furosemide (Lasix Tab*) 20 mg PO EVERY OTHER DAY [facility] Lactated Ringer's (Lactated Ringers 1000 Ml Bag*) 1,000 mls @ 100 mls/hr IV PER RATE [facility] Last Admin: 07/27/17 03:51 Dose: 100 mls/hr Lactated Ringer's (Lactated Ringers 500 Ml Bag*) 500 mls @ 2,000 mls/hr IV ONCE PRN PRN Reason: FOR SBP < 90 Levothyroxine Sodium (Synthroid Tab*) 100 mcg PO 0600 [facility] Last Admin: 07/27/17 15:05 Dose: 100 mcg Losartan Potassium (Cozaar Tab*) 25 mg PO QAM [facility] Magnesium Hydroxide (Milk Of Magnesia Liq*) 30 ml PO BID [facility] Last Admin: 07/27/17 08:17 Dose: Not Given Magnesium Hydroxide (Milk Of Magnesia Liq*) 30 ml PO Q6H PRN PRN Reason: constipation Morphine Sulfate (Morphine Vial*) 2 mg IV Q2H PRN PRN Reason: PAIN - UNCONTROLLED Last Admin: 07/27/17 08:11 Dose: 2 mg Multivitamins (Theragran Tab*) 1 tab PO DAILY [facility] Last Admin: 07/27/17 08:12 Dose: 1 tab Ondansetron HCl (Zofran Inj*) 4 mg IV Q6H PRN PRN Reason: nausea Oxycodone HCl (Roxycodone Tab*) 10 mg PO Q4H PRN PRN Reason: PAIN - SEVERE Last Admin: 07/27/17 12:26 Dose: 10 mg Oxycodone/Acetaminophen (Percocet 5/325 Tab*) 2 tab PO Q4H PRN PRN Reason: PAIN - MODERATE TO SEVERE Last Admin: 07/27/17 09:22 Dose: 2 tab Oxycodone/Acetaminophen (Percocet 5/325 Tab*) 1 tab PO Q4H PRN PRN Reason: PAIN - MODERATE Pharmacy Profile Note (Scopolamine Patch Remove*) 1 note PATCH OFF .AFTER 72 HOURS ONE Stop: 07/29/17 13:39 Scopolamine (Transderm-Scop 1.5 Mg Patch*) 1 patch TRANSDERM Q72H PRN PRN Reason: nausea or vomiting Tiotropium [place] (Spiriva Respimat 2.5 Mcg(Nf)) 2 puff INH DAILY JUAN Warfarin Sodium (Coumadin Tab(*)) 6 mg PO ONCE@1700 JUAN PRN Reason: Protocol Stop: 07/27/17 17:01
[2017-07-27] MEDS: oxyCODONE/Acetamin 5/325 MG* TAB PO PRN ×3 (09:22→21:50)
[2017-07-27] MEDS ORDERED: Albuterol HFA INHALER* 8 gm MDI INH PRN (09:54)
--- NOTE | 2017-07-27 10:44 | OP ---
OPERATIVE NOTE: DATE OF OPERATION: 07/26/17 - Inpatient, room SSU 343-02. DATE OF : 40 SURGEON: Sury Wyman MD DISTRICT OPERATIONS MANAGER: SUDHA Elias Mr. Antonio did help throughout the procedure with preparation of the leg, wound retraction, manipulation of the knee, and wound closure. ANESTHESIOLOGIST: Dr. Altamirano. ANESTHESIA: Spinal. PRE-OP DIAGNOSIS: Severe end-stage degenerative osteoarthritis of the left knee joint. POST-OP DIAGNOSES: Severe end-stage degenerative osteoarthritis of the left knee joint. OPERATIVE PROCEDURE: Left total knee arthroplasty. TOURNIQUET TIME: 41 minutes. COMPLICATIONS: None. SPECIMENS: Bone and cartilage from the left knee joint sent to Pathology. ESTIMATED BLOOD LOSS: 200 cc. HARDWARE USED: This is [employer] cemented total knee arthroplasty hardware. Two packages of simplex bone cement. For the femur, a size 5 Narrow Oxinium Legion femoral component, side of left. For the tibia, a left size 4 tibial base plate Leyla II. For the insert, a 15 mm constrained articular insert size 3/4, and for the patella 32 mm 3 peg all poly patella, thickness 7.5. BRIEF HISTORY/INDICATIONS: Ms. Stephen Cisneros is a 76-year-old female with years of increasingly severe left knee pain and valgus deformity. She failed conservative treatment with antiinflammatories, pain medication, intra- articular injection, and physical therapy. Radiographs showed [id number] arthritis. Due to continued pain and decreased quality of life, she elected to undergo a left total knee arthroplasty. Informed consent was obtained from the patient. She understood the risks of the surgery included but were not limited to bleeding, infection, damage to nearby structures, continued pain, need for further surgery, intraoperative fracture, nerve palsy, hardware failure or loosening, knee stiffness, loss of motion, stroke, heart attack, blood clot, and . She wished to proceed. INTRAOPERATIVE FINDINGS: Intraoperatively, the patient was noted to have a 20- degree valgus deformity at the start of the case. 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 The patient was noted to have severe end- stage loss of cartilage in the lateral and patellofemoral compartments. 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 DESCRIPTION OF PROCEDURE: Ms. Mitchell was identified in the preanesthesia unit. Her left lower extremity was marked as the correct operative site. Informed consent was signed and placed in the chart. The patient was taken to the operating room and placed under spinal anesthesia. A Carmona catheter was placed. Tourniquet was placed on the left thigh. Left lower extremity was prepped and draped in the usual sterile fashion. Preop time-out was made to correctly identify the patient side and site. Appropriate perioperative antibiotics were given within 1 hour of incision. A midline incision was made with a 10 blade and carried down to the extensor mechanism. A new 10-blade was used to make a standard medial parapatellar arthrotomy. Patella was subluxed laterally. Electrocautery was used to very conservatively elevate soft tissue along the superomedial tibia. The knee was flexed up. The anterior horn of the lateral meniscus was no longer intact. ACL was sharply released. A drill was used to enter the distal femur. The intramedullary distal femoral cutting guide was pinned on the distal femur. Oscillating saw was used to make the distal femoral cut. External rotation guide was pinned on the distal femur and the femur was sized to a size 5. Size 5 multi- cutting jig was pinned on the distal femur. Oscillating saw was used to make the appropriate chamfer cuts. The PCL was completely released. Tibia was subluxed anteriorly. Extramedullary tibial cutting guide was pinned on the proximal tibia. Proximal tibial cut was made with an oscillating saw perpendicular to the mechanical axis of the tibia. The bone was carefully removed. The knee was brought out into full extension. MCL incompetence was noted; however, the joint space was much improved and alignment was significantly improved within 7 degrees of anatomic valgus. Flexion and extension gaps were well balanced. The knee was flexed up. Lamina black oxide coating equipment tender was placed both medially and laterally. Any remaining meniscus was carefully removed using electrocautery. Curved osteotome was used to remove any posterior osteophytes. Tibial tray and drop tato were placed and once again confirmed a satisfactory tibial cut. A size 5 Narrow left femoral trial was impacted on to the distal femur and had excellent fit. The box for the posterior stabilized implant was prepared using a reamer and box-cut osteotome. Size 4 tibial tray trial with an 13-mm insert trial was placed. The knee was taken through a range of motion and noted to have satisfactory stability, full extension to 130 degrees of flexion with satisfactory patellofemoral tracking. The patella was everted. 7 mm of patellar bone and cartilage were carefully removed using an oscillating saw. The patella was sized to a size 32. Three peg holes were drilled through the size 32 trial. Trial of patella with 7.5 thickness was placed and the knee was taken through a range of motion. There was satisfactory patellofemoral tracking. All trials were carefully removed. The tibia was subluxed anteriorly and sized to a size 4. Proximal tibia was prepared using a size 4 keel punch. All bony cut surfaces were copiously irrigated with sterile saline and dried. Final implants were cemented into place starting with the tibia followed by the femur and last the patella. Tourniquet was turned down at 41 minutes. The knee was copiously irrigated with sterile saline. Electrocautery was used to obtain meticulous hemostasis. Once the cement had fully cured, the insert trial was removed. Any excess cement was removed from around the capsule and hardware. Final insert chosen was a 15-mm constrained articular insert. This was locked into position on the tibial tray without difficulty. Stability of the insert was checked and rechecked and noted to be stable. The knee was copiously irrigated with sterile saline. Extensor mechanism was closed using interrupted #1 Vicryls. Skin was closed using running 3-0 nylon suture. Sterile Xeroform, 4x4s, and Webril were used to cover the incision. Gareth wrap and cold pack were placed over this. The patient's anesthesia was reversed without difficulty. She was taken to the PACU in stable condition. Intended weightbearing will be weightbearing as tolerated. Intended DVT prophylaxis will be Coumadin with Lovenox bridge. [id number]/[facility] #: [id number] [facility]
[2017-07-27] MEDS: Enoxaparin(*) 30 MG/0.3 ML SYR SUBCUT SCH (12:28)
--- NOTE | 2017-07-27 14:06 | PN ---
Subjective Date of Service: 07/27/17 Interval History: Ms. Stephen Cisneros reports that she has had significant pain in her left knee today but is otherwise doing well. She denies chest pain, SOB, nausea, or abdominal pain. Objective Active Medications: Acetaminophen (Tylenol Tab*) 650 mg PO Q4H PRN Albuterol (Ventolin Hfa Inhaler*) 1 puff INH Q4H PRN Anastrozole (Arimidex (Nf)) 1 mg PO QAM JUAN Aspirin (Aspirin Ec Tab*) 81 mg PO QAM JUAN Beclomethasone Dipropionate (Qvar 40 Mcg Mdi(Nf)) 1 puff INH BID JUAN Bisacodyl (Dulcolax Supp*) 10 mg MO DAILY PRN Bupropion HCl (Bupropion Xl*) 300 mg PO DAILY JUAN Carvedilol (Coreg Tab*) 12.5 mg PO BID JUAN Cyclobenzaprine HCl (Flexeril Tab*) 10 mg PO TID PRN Diphenhydramine HCl (Benadryl Iv*) 25 mg IV Q6H PRN Diphenhydramine HCl (Benadryl Po*) 25 mg PO BID JUAN Docusate Sodium (Colace Cap*) 100 mg PO BID JUAN Enoxaparin Sodium (Lovenox(*)) 30 mg SUBCUT Q24H JUAN Ephedrine Sulfate (Ephedrine Sulfate (Pressors)*) 5 mg IV PUSH Q5M PRN Furosemide (Lasix Tab*) 20 mg PO EVERY OTHER DAY JUAN Lactated Ringer's (Lactated Ringers 1000 Ml Bag*) 1,000 mls @ 100 mls/hr IV PER RATE JUAN Lactated Ringer's (Lactated Ringers 500 Ml Bag*) 500 mls @ 2,000 mls/hr IV ONCE PRN Levothyroxine Sodium (Synthroid Tab*) 100 mcg PO 0600 JUAN Losartan Potassium (Cozaar Tab*) 25 mg PO QAM JUAN Magnesium Hydroxide (Milk Of Magnesia Liq*) 30 ml PO BID JUAN Magnesium Hydroxide (Milk Of Magnesia Liq*) 30 ml PO Q6H PRN Morphine Sulfate (Morphine Vial*) 2 mg IV Q2H PRN Multivitamins (Theragran Tab*) 1 tab PO DAILY JUAN Ondansetron HCl (Zofran Inj*) 4 mg IV Q6H PRN Oxycodone HCl (Roxycodone Tab*) 10 mg PO Q4H PRN Oxycodone/Acetaminophen (Percocet 5/325 Tab*) 2 tab PO Q4H PRN Oxycodone/Acetaminophen (Percocet 5/325 Tab*) 1 tab PO Q4H PRN Pharmacy Profile Note (Scopolamine Patch Remove*) 1 note PATCH OFF .AFTER 72 HOURS ONE Scopolamine (Transderm-Scop 1.5 Mg Patch*) 1 patch TRANSDERM Q72H PRN Vital Signs: Temp Pulse Resp BP Pulse Ox 97.6 F 62 16 105/48 95 07/27/17 07:39 07/27/17 07:39 07/27/17 12:30 07/27/17 07:39 07/27/17 07:39 Oxygen Devices in Use Now: None Appearance: Female sitting up in chair in NAD Neck: NL Appearance and Movements; NL JVP Respiratory: Symmetrical Chest Expansion and Respiratory Effort, Clear to Auscultation Cardiovascular: NL Sounds; No Murmurs; No JVD, No Edema Abdominal: NL Sounds; No Tenderness; No Distention Lymphatic: No Cervical Adenopathy Extremities: No Edema Skin: No Rash or Ulcers Neurological: Alert and Oriented x 3, NL Muscle Strength and Tone Nutrition: Taking PO's Result Diagrams: 07/27/17 05:58 07/27/17 05:58 Assess/Plan/Problems-Billing Assessment: Ms. Stephen Cisneros is a 76 yo female with PMH of hypertension who was admitted on 07/26/17 for an elective left total knee replacement. - Patient Problems (1) S/P knee replacement Comment: - Management per ortho. - Pain meds prn with bowel regimen. - PT/OT. - Monitor H/H. (2) Hypertension Comment: - SBP 100-110. - Continue carvedilol, hold furosemide and losartan. (3) Hypothyroidism Comment: - Continue levothyroxine. (4) Depression Comment: - Continue bupropion. (5) DVT prophylaxis Comment: - Lovenox with warfarin per ortho. (6) Full code status Comment: Status and Disposition: Inpatient with disposition per ortho.
[2017-07-27] MEDS: Levothyroxine TAB* 100 MCG TAB PO SCH (15:05)
[2017-07-27] MEDS ORDERED: Warfarin TAB(*) 6 MG PO ONE (17:00)
[2017-07-27] MEDS ORDERED: BECLOMETHASONE 40 MCG INH SCH (21:00)
[2017-07-27] MEDS ORDERED: MDI INH SCH (21:00)
[2017-07-27] MEDS: diPHENhydraMINE PO* 25 MG PO SCH (21:47)
[2017-07-27] MEDS: Carvedilol TAB* 6.25 MG PO SCH (22:09)
[2017-07-27] MEDS: Zolpidem TAB* 10 MG PO PRN (22:56)
[2017-07-28] MEDS: oxyCODONE TAB* 5 MG TAB PO PRN ×2 (03:45→08:43)
[2017-07-28] MEDS: Levothyroxine TAB* 100 MCG TAB PO SCH (05:44)
[2017-07-28 05:58] LABS: INR 1.26 (0.77-1.02)
[2017-07-28 06:41] LABS: Hematocrit 31 % (35-47); Hemoglobin 10.9 g/dl (12.0-16.0); Platelet Count 175 10^3/ul (150-450)
[2017-07-28] MEDS: oxyCODONE/Acetamin 5/325 MG* TAB PO PRN ×4 (06:41→22:57)
--- NOTE | 2017-07-28 07:47 | PN ---
Progress Note - Progress Note Date of Service: 07/28/17 SOAP: Subjective: Pt. is alert, reports pain moderate, she feels unable to go home today. Objective: LLE - dressing changed, inc c/d/i. distally nvi. Vital Signs: Temp Pulse Resp BP Pulse Ox 98.2 F 86 12 129/71 93 07/28/17 07:24 07/28/17 07:24 07/28/17 07:24 07/28/17 07:24 07/28/17 07:24 Laboratory Results - last 24 hr 07/28/17 07/28/17 05:19 06:32 Hgb 10.9 L Hct 31 L Plt Count 175 MPV 8.0 INR (Anticoag Therapy) 1.26 H Assessment: 76 yo F pod 2 s/p LTKA Plan: wbat pt/ot 8mg coumadin tonight lovenox today plan d/c to home 07/29 with vns
[2017-07-28] MEDS: Vitamin THERAPEUTIC TAB PO SCH (08:14)
[2017-07-28] MEDS: Aspirin EC TAB* 81 MG TAB.EC PO SCH (08:14)
[2017-07-28] MEDS: Docusate CAP* 100 MG PO SCH ×2 (08:14→22:56)
[2017-07-28] MEDS: CMC:Anastrozole (NF) 1 MG TAB PO SCH (08:14)
[2017-07-28] MEDS: BuPROPion XL* 300 MG TAB.XL PO SCH (08:14)
[2017-07-28] MEDS: Magnesium Hydroxide LIQ* 30 ML UDC PO SCH ×2 (08:15→22:56)
[2017-07-28] MEDS: PTO: Tiotropium Respimt 2.5 mcg(NF) 1 PUFF MDI INH SCH (08:16)
[2017-07-28] MEDS: PTO: Fluticasone/Vilanterol MDI(NF) 200/25 MDI INH SCH (08:16)
[2017-07-28] MEDS: diPHENhydraMINE PO* 25 MG PO SCH ×2 (08:18→22:40)
[2017-07-28] MEDS: Carvedilol TAB* 6.25 MG PO SCH ×2 (08:19→22:59)
[2017-07-28] MEDS ORDERED: Furosemide TAB* 20 MG PO SCH (09:00)
[2017-07-28] MEDS ORDERED: Losartan TAB* 25 MG PO SCH (09:00)
[2017-07-28] MEDS: Enoxaparin(*) 30 MG/0.3 ML SYR SUBCUT SCH (12:48)
--- NOTE | 2017-07-28 14:36 | PN ---
Subjective Date of Service: 07/28/17 Interval History: Ms. Stephen Cisneros reports that she is feeling well today. She denies chest pain, SOB, nausea, or abdominal pain and reports that her pain is well controlled. Objective Active Medications: Acetaminophen (Tylenol Tab*) 650 mg PO Q4H PRN Albuterol (Ventolin Hfa Inhaler*) 1 puff INH Q4H PRN Anastrozole (Arimidex (Nf)) 1 mg PO QAM JUAN Aspirin (Aspirin Ec Tab*) 81 mg PO QAM JUAN Bisacodyl (Dulcolax Supp*) 10 mg HI DAILY PRN Bupropion HCl (Bupropion Xl*) 300 mg PO DAILY JUAN Carvedilol (Coreg Tab*) 12.5 mg PO BID JUAN Cyclobenzaprine HCl (Flexeril Tab*) 10 mg PO TID PRN Diphenhydramine HCl (Benadryl Iv*) 25 mg IV Q6H PRN Diphenhydramine HCl (Benadryl Po*) 25 mg PO BID JUAN Docusate Sodium (Colace Cap*) 100 mg PO BID JUAN Enoxaparin Sodium (Lovenox(*)) 30 mg SUBCUT Q24H JUAN Fluticasone/Vilanterol (Breo Ellipta Mdi 200/25(Nf)) 1 puff INH DAILY JUAN Lactated Ringer's (Lactated Ringers 1000 Ml Bag*) 1,000 mls @ 100 mls/hr IV PER RATE JUAN Levothyroxine Sodium (Synthroid Tab*) 100 mcg PO 0600 JUAN Magnesium Hydroxide (Milk Of Magnesia Liq*) 30 ml PO BID JUAN Magnesium Hydroxide (Milk Of Magnesia Liq*) 30 ml PO Q6H PRN Morphine Sulfate (Morphine Vial*) 2 mg IV Q2H PRN Multivitamins (Theragran Tab*) 1 tab PO DAILY JUAN Ondansetron HCl (Zofran Inj*) 4 mg IV Q6H PRN Oxycodone HCl (Roxycodone Tab*) 10 mg PO Q4H PRN Oxycodone/Acetaminophen (Percocet 5/325 Tab*) 2 tab PO Q4H PRN Oxycodone/Acetaminophen (Percocet 5/325 Tab*) 1 tab PO Q4H PRN Pharmacy Profile Note (Scopolamine Patch Remove*) 1 note PATCH OFF .AFTER 72 HOURS ONE Pharmacy Profile Note (Coumadin Daily Reminder*) 1 note FOLLOW UP 1700 JUAN Scopolamine (Transderm-Scop 1.5 Mg Patch*) 1 patch TRANSDERM Q72H PRN Tiotropium [place] (Spiriva Respimat 2.5 Mcg(Nf)) 2 puff INH DAILY JUAN Warfarin Sodium (Coumadin Tab(*)) 8 mg PO ONCE@1700 ONE Zolpidem Tartrate (Ambien Tab*) 10 mg PO BEDTIME PRN Vital Signs: Temp Pulse Resp BP Pulse Ox 97.8 F 80 18 115/41 87 07/28/17 11:50 07/28/17 11:50 07/28/17 12:49 07/28/17 11:50 07/28/17 11:50 Oxygen Devices in Use Now: Nasal Cannula Appearance: Female lying in bed in NAD Eyes: No Scleral Icterus Ears/Nose/Mouth/Throat: Mucous Membranes Moist Neck: Trachea Midline Respiratory: Symmetrical Chest Expansion and Respiratory Effort, Clear to Auscultation Cardiovascular: NL Sounds; No Murmurs; No JVD, No Edema Abdominal: NL Sounds; No Tenderness; No Distention Lymphatic: No Cervical Adenopathy Extremities: No Edema Skin: No Rash or Ulcers Neurological: Alert and Oriented x 3, NL Muscle Strength and Tone Nutrition: Taking PO's Result Diagrams: 07/28/17 06:32 07/27/17 05:58 Assess/Plan/Problems-Billing Assessment: Ms. Stephen Cisneros is a 76 yo female with PMH of hypertension who was admitted on 07/26/17 for an elective left total knee replacement. - Patient Problems (1) S/P knee replacement Comment: - Management per ortho. - Pain meds prn with bowel regimen. - PT/OT. - Monitor H/H. (2) Hypertension Comment: - SBP 100-110 this afternoon. - Continue carvedilol, hold furosemide and losartan. (3) Hypothyroidism Comment: - Continue levothyroxine. (4) Depression Comment: - Continue bupropion. (5) DVT prophylaxis Comment: - Lovenox with warfarin per ortho. (6) Full code status Comment: Status and Disposition: Inpatient with disposition per ortho.
[2017-07-28] MEDS ORDERED: Warfarin TAB(*) 4 MG PO ONE (17:00)
[2017-07-28] MEDS: Zolpidem TAB* 10 MG PO PRN (22:57)
[2017-07-29] MEDS: oxyCODONE/Acetamin 5/325 MG* TAB PO PRN ×3 (03:50→12:34)
[2017-07-29 06:07] LABS: Hematocrit 34 % (35-47); Hemoglobin 11.7 g/dl (12.0-16.0); Mean Platelet Volume 8.4 um3 (7.4-10.4); Platelet Count 205 10^3/ul (150-450)
[2017-07-29] MEDS: Levothyroxine TAB* 100 MCG TAB PO SCH (06:11)
[2017-07-29 06:13] LABS: INR 1.33 (0.77-1.02)
[2017-07-29] MEDS: Carvedilol TAB* 6.25 MG PO SCH (07:48)
[2017-07-29] MEDS: CMC:Anastrozole (NF) 1 MG TAB PO SCH (08:21)
[2017-07-29] MEDS: Vitamin THERAPEUTIC TAB PO SCH (08:23)
[2017-07-29] MEDS: Aspirin EC TAB* 81 MG TAB.EC PO SCH (08:23)
[2017-07-29] MEDS: Magnesium Hydroxide LIQ* 30 ML UDC PO SCH (08:23)
[2017-07-29] MEDS: Docusate CAP* 100 MG PO SCH (08:23)
[2017-07-29] MEDS: BuPROPion XL* 300 MG TAB.XL PO SCH (08:23)
[2017-07-29] MEDS: diPHENhydraMINE PO* 25 MG PO SCH (08:24)
--- NOTE | 2017-07-29 08:53 | PN ---
Subjective Date of Service: 07/29/17 Interval History: Ms. Stephen Cisneros reports that she is feeling quite well today and is eager for discharge to home. Objective Active Medications: Acetaminophen (Tylenol Tab*) 650 mg PO Q4H PRN Albuterol (Ventolin Hfa Inhaler*) 1 puff INH Q4H PRN Anastrozole (Arimidex (Nf)) 1 mg PO QAM JUAN Aspirin (Aspirin Ec Tab*) 81 mg PO QAM JUAN Bisacodyl (Dulcolax Supp*) 10 mg CO DAILY PRN Bupropion HCl (Bupropion Xl*) 300 mg PO DAILY JUAN Carvedilol (Coreg Tab*) 12.5 mg PO BID JUAN Cyclobenzaprine HCl (Flexeril Tab*) 10 mg PO TID PRN Diphenhydramine HCl (Benadryl Iv*) 25 mg IV Q6H PRN Diphenhydramine HCl (Benadryl Po*) 25 mg PO BID JUAN Docusate Sodium (Colace Cap*) 100 mg PO BID JUAN Enoxaparin Sodium (Lovenox(*)) 30 mg SUBCUT Q24H JUAN Fluticasone/Vilanterol (Breo Ellipta Mdi 200/25(Nf)) 1 puff INH DAILY JUAN Levothyroxine Sodium (Synthroid Tab*) 100 mcg PO 0600 JUAN Magnesium Hydroxide (Milk Of Magnesia Liq*) 30 ml PO BID JUAN Magnesium Hydroxide (Milk Of Magnesia Liq*) 30 ml PO Q6H PRN Morphine Sulfate (Morphine Vial*) 2 mg IV Q2H PRN Multivitamins (Theragran Tab*) 1 tab PO DAILY JUAN Ondansetron HCl (Zofran Inj*) 4 mg IV Q6H PRN Oxycodone HCl (Roxycodone Tab*) 10 mg PO Q4H PRN Oxycodone/Acetaminophen (Percocet 5/325 Tab*) 2 tab PO Q4H PRN Oxycodone/Acetaminophen (Percocet 5/325 Tab*) 1 tab PO Q4H PRN Pharmacy Profile Note (Scopolamine Patch Remove*) 1 note PATCH OFF .AFTER 72 HOURS ONE Pharmacy Profile Note (Coumadin Daily Reminder*) 1 note FOLLOW UP 1700 JUAN Scopolamine (Transderm-Scop 1.5 Mg Patch*) 1 patch TRANSDERM Q72H PRN Tiotropium [place] (Spiriva Respimat 2.5 Mcg(Nf)) 2 puff INH DAILY JUAN Zolpidem Tartrate (Ambien Tab*) 10 mg PO BEDTIME PRN Vital Signs: Temp Pulse Resp BP Pulse Ox 98.1 F 86 16 109/47 93 07/29/17 07:30 07/29/17 07:30 07/29/17 08:22 07/29/17 07:30 07/29/17 07:30 Oxygen Devices in Use Now: None Appearance: Female lying in bed in NAD Eyes: No Scleral Icterus Ears/Nose/Mouth/Throat: Mucous Membranes Moist Neck: NL Appearance and Movements; NL JVP Respiratory: Clear to Auscultation Cardiovascular: NL Sounds; No Murmurs; No JVD, No Edema Abdominal: NL Sounds; No Tenderness; No Distention Skin: No Rash or Ulcers Neurological: Alert and Oriented x 3, NL Muscle Strength and Tone Nutrition: Taking PO's Result Diagrams: 07/29/17 05:44 07/27/17 05:58 Assess/Plan/Problems-Billing Assessment: Ms. Stephen Cisneros is a 76 yo female with PMH of hypertension who was admitted on 07/26/17 for an elective left total knee replacement. - Patient Problems (1) S/P knee replacement Comment: - Management per ortho. - Pain meds prn with bowel regimen. - PT/OT. - Monitor H/H. (2) Hypertension Comment: - SBP 100-110 this afternoon. - Continue carvedilol, resume furosemide and losartan. (3) Hypothyroidism Comment: - Continue levothyroxine. (4) Depression Comment: - Continue bupropion. (5) DVT prophylaxis Comment: - Lovenox with warfarin per ortho. (6) Full code status Comment: Status and Disposition: Inpatient with disposition per ortho.
[2017-07-29] MEDS ORDERED: Furosemide TAB* 20 MG PO SCH (09:00)
[2017-07-29] MEDS ORDERED: Losartan TAB* 25 MG PO SCH (09:00)
[2017-07-29] MEDS: PTO: Tiotropium Respimt 2.5 mcg(NF) 1 PUFF MDI INH SCH (10:52)
[2017-07-29] MEDS: PTO: Fluticasone/Vilanterol MDI(NF) 200/25 MDI INH SCH (10:52)
[2017-07-29] MEDS: Enoxaparin(*) 30 MG/0.3 ML SYR SUBCUT SCH (12:34)
[2017-07-29 13:14] VITALS: BP 117/51
[2017-07-29] MEDS ORDERED: Scopolamine PATCH Remove* 1 NOTE MISC PATCH OFF ONE (13:38)
== END 2017-07-29 14:10 | disposition home health service (06) | DRG 470 ==
LOC: AA 09:21 → SSU 20:11
PROVIDERS: ADMIT Orthopaedic Surgery Adult Reconstructive Orthopaedic Surgery; ATTEND Orthopaedic Surgery Adult Reconstructive Orthopaedic Surgery
PROC: 0SRD069 Replacement of Left Knee Joint with Oxidized Zirconium on Polyethylene Synthetic Substitute, Cemented, Open Approach (ICD-10-PCS; principal; 2017-07-26 12:00)
DX: M17.12 Unilateral primary osteoarthritis, left knee (principal); I42.9 Cardiomyopathy, unspecified; I50.42 Chronic combined systolic (congestive) and diastolic (congestive) heart failure; M21.062 Valgus deformity, not elsewhere classified, left knee; E03.9 Hypothyroidism, unspecified; E78.00 Pure hypercholesterolemia, unspecified; R73.01 Impaired fasting glucose; J45.909 Unspecified asthma, uncomplicated; F32.9 Major depressive disorder, single episode, unspecified; F41.9 Anxiety disorder, unspecified; G62.9 Polyneuropathy, unspecified; M25.462 Effusion, left knee; I11.0 Hypertensive heart disease with heart failure; G47.9 Sleep disorder, unspecified; T45.1X5A Adverse effect of antineoplastic and immunosuppressive drugs, initial encounter; C50.912 Malignant neoplasm of unspecified site of left female breast; Z82.49 Family history of ischemic heart disease and other diseases of the circulatory system; Z83.3 Family history of diabetes mellitus; Z91.040 Latex allergy status; Z91.013 Allergy to seafood; Z80.9 Family history of malignant neoplasm, unspecified; Z82.3 Family history of stroke; Z82.61 Family history of arthritis; Z83.6 Family history of other diseases of the respiratory system; Z98.42 Cataract extraction status, left eye; Z98.41 Cataract extraction status, right eye; Z90.12 Acquired absence of left breast and nipple; Z87.891 Personal history of nicotine dependence
CPT/HCPCS: 36415; 62327; 80048; 85014; 85018; 85049; 85610; 88305; 88311; 94760; A9270-GY; C1776; G8978-GP-CJ; G8978-GP-CK; G8979-GP-CI; G8980-GP-CI; G8987-GO-CK; G8988-GO-CI; J0690; J1100; J1650; J2250; J2270; J2704; J2795; J3010

== ENCOUNTER 2022-02-13 22:16 | Observation (INO) ==
[2022-02-13 22:40] LABS: ABS Monocytes 0.3 10^3/ul (0-0.8); ABS Neutrophils 5.1 10^3/ul (1.5-7.7); Eosinophil % 0.2 %; Hematocrit 42 % (35-47); Hemoglobin 13.8 g/dL (12.0-16.0); Lymphocyte % 26.7 %; Mean Corpuscular HGB Conc 33 g/dL (31-36); Mean Corpuscular Hemoglobin 30 pg (27-31); Mean Corpuscular Volume 90 fL (80-97); Mean Platelet Volume 8.2 fL (7.4-10.4); Platelet Count 247 10^3/uL (150-450); Red Blood Count 4.66 10^6 /uL (3.70-4.87); Red Cell Distribution Width 14 % (10-15); White Blood Count 7.5 10^3/uL (3.5-10.8)
[2022-02-13 22:48] LABS: Activated Partial Thrombo Time 26.6 seconds (26.0-38.0); INR 0.92 (0.89-1.11)
[2022-02-13 23:18] LABS: Albumin 4.4 g/dL (3.2-5.2); Albumin/Globulin Ratio 1.5 (1-3); HDL Cholesterol 62.3 mg/dL; Potassium 4.1 mmol/L (3.5-5.0); Total Bilirubin 0.8 mg/dL (0.2-1.0); Total Protein 7.4 g/dL (6.4-8.9); eGFR CKD-EPI 60.2 (>60)
[2022-02-13] MEDS ORDERED: Iodixanol (CONTRAST) 320 MG/ML 100 ML SDV IV ONE (23:41)
[2022-02-14 02:03] LABS: Urine Appearance Clear; Urine Bilirubin Negative (Negative); Urine Blood Negative (Negative); Urine Color Yellow; Urine Glucose 2+ (500mg/dL) (Negative); Urine Ketones Trace (Negative); Urine Nitrite Negative (Negative); Urine Protein Negative (Negative); Urine Specific Gravity 1.015 (1.005-1.030); Urine Urobilinogen 0.2 (Negative) (Negative); Urine pH 7.5 (5.0-9.0)
[2022-02-14] MEDS ORDERED: Albuterol HFA INHALER 8 gm MDI INH PRN (03:26)
[2022-02-14] MEDS ORDERED: CMCS: Anastrozole 1 mg TAB (NF) PO SCH (09:00)
[2022-02-14] MEDS ORDERED: FLUTICAS/UMECLI/VILANT 100-62.5-25 MDI (NF) INH SCH (09:00)
[2022-02-14 09:34] LABS: TSH Ultra Thyroid Stim Horm 1.25 mcIU/mL (0.34-5.60)
[2022-02-14] MEDS ORDERED: Ondansetron 4 mg VIAL 2 MG/ML 2 ml VIAL IV PRN (12:04)
[2022-02-14 16:29] VITALS: BP 134/67
== END 2022-02-14 16:31 | disposition home or self-care (01) ==
LOC: EDHOLD 22:16 → ED 22:16 → SUATTDRO 02-14 02:29 → EDHOLD 02-14 16:30
PROVIDERS: ADMIT Internal Medicine; ATTEND Internal Medicine